=== PATIENT | female | born 1955 | race Caucasian/White ===

== ENCOUNTER 2018-04-08 15:59 | Inpatient (IN) | payer SELFPAY ==
[2018-04-08] VITALS (9 sets, daily range): BP systolic 154–190; BP diastolic 55–80; PULSE 78–100; RESP 14–20; TEMP 36.9–37.4; O2SAT 91–96; BMI 28.3
--- NOTE | 2018-04-08 16:10 | ED.DCSUM_ITS ---
- ER Visit Summary Date of Service: 04/08/18 Chief Complaint: Abdominal pain History of Present Illness: The patient is a 62 F presents to the emergency department with increasing abdominal pain. Patient states that over the past 24 hours, she has had increasing abdominal fullness, nausea, vomiting, abdominal pain. Patient states she has never had symptoms like this before. She states she cannot keep anything down. She states she has been vomiting more than 10 times. She denies any blood in the emesis. Her last bowel movement was >24 hours ago. Patient's only surgical history is ex lap for partial bowel removal when she was because it was . She has had no other abdominal surgery. She denies fevers or chills. She is a non-insulin- dependent diabetic. Physical Examination: Vital signs reviewed General: Well-nourished, well-developed Head: Normocephalic, atraumatic Eyes: Pupils equal and reactive, extraocular muscles intact Neck, supple, no lymphadenopathy Heart: Regular rate and rhythm Respiratory: No distress, clear bilaterally Abdomen: Soft, distended, tender in the periumbilical and epigastric area without rebound, no peritoneal signs Back: Nontender Extremities: Nontender, no edema, no cords Skin: Normal color no rash Neuro: Alert and oriented, no focal or lateralizing deficits Test Results: [] Emergency Department Course and Treatment: The patient's symptoms that are concerning for acute bowel obstruction. Her only prior surgery is ex lap for some sort of bowel issue 30 years ago. IV was established. The patient does have marked leukocytosis. She was given morphine and Zofran and had total resolution of her symptoms. Patient's lactate is mildly elevated but I do feel that more likely secondary to dehydration and sepsis. Patient underwent CT of the abdomen and pelvis which shows symptoms that are concerning for a closed loop obstruction in the right lower quadrant. NG was placed. I discussed the patient with Dr. Rivero who is currently evaluating the patient. The patient will be admitted for treatment of small bowel obstruction. Treatment Plan: [] Disposition: Admission Impression: 1. Small bowel obstruction This note was generated with [employer] dictation software. It may contain incorrect words, spelling, and punctuation that were not noted in review of the chart prior to signing ED Disposition - Plan for ED Patient: Chief Complaint: Abd Pain Referrals: Kaleb Ferraro [Primary Care Provider] -
[2018-04-08] MEDS: Morphine 4 MG/ML Syringe IV (16:37)
[2018-04-08] MEDS: Ondansetron 4 MG/2 ML Vial IV (16:37)
[2018-04-08] MEDS: 0.9% Normal Saline 1,000 ML 1000 ML IV (16:37)
[2018-04-08 16:54] LABS: Absolute Lymphocyte Count 2.18 X10^3/ul (0.83-4.51); Absolute Neutrophil Count 15.1 X10^3/uL (2.0-7.7); Basophil# 0.01 X10^3/uL; Basophil% 0.1 % (0-1); Eosinophil# 0.01 X10^3/uL; Eosinophils% 0.1 % (0-5); Hemoglobin 16.6 g/dl (12.0-15.0); Lymphocyte # 2.18 X10^3/ul (4.0); Mean Corp Hgb Conc 35.3 g/gl (32-36); Mean Corpuscular Hgb 32.5 pg (27.0-32.0); Mean Corpuscular Volume 92.2 fL (81-99); Mean Platelet Vol. 10.3 fl (6.2-12.0); Monocyte# 0.86 X10^3/uL; Monocyte% 4.7 % (0-10); Neutrophil # 15.05 X10^3/uL (2.7-7.7); Neutrophil % 82.9 % (47-70); Platelet Count 216 K/mm3 (150-450); RBC Distribution Width CV 12.8 % (11.6-14.6); RBC Distribution Width SD 42.7 fl (35.1-43.9); White Blood Count 18.1 K/mm3 (4.4-11.0)
[2018-04-08 17:09] LABS: Bacteria 0 SEEN /hpf (None Seen); Mucous, Urine 0 SEEN /hpf (<or=2+); Red Blood Cells-Urine 0 SEEN /hpf (0-5); White Blood Cells 0 SEEN /hpf (0-5)
[2018-04-08 17:10] LABS: Color, Urine Yellow (Yellow); Glucose, Dipstick Normal (Normal); Ketone-Dipstick 50 mg/dl (Negative); Leukocyte Esterase-Dipstick Negative /ul (Negative); Nitrite-Dipstick Negative (Negative); Occult Blood-Urine 25 /ul (Negative); Protein-Dipstick 100 mg/dl (Negative); Specific Gravity, Urine 1.015 (1.002-1.030); Urine Bilirubin Dipstick Negative (Negative); Urine Clarity Clear (Clear); Urine Urobilinogen Normal (Normal); Urine pH 6.5 (5.0 - 8.0)
[2018-04-08 17:11] LABS: POSITIVE COUNT NO; POSITIVE DIFFERENTIAL NO; POSITIVE MORPHOLOGY NO
[2018-04-08 17:16] LABS: ALB/GLOB Ratio 1.1 RATIO (0.9-2.4); AST(SGOT) 23 U/L (15-37); Alanine Aminotransfer ALT/SGPT 40 U/L (13-56); Albumin, Serum 4.1 g/dL (3.2-5.0); Alkaline Phosphatase 67 U/L (45-117); Anion Gap 12 (5-15); BUN 13 mg/dL (7-18); BUN/Creat Ratio 15.5 RATIO (10-20); Calcium,Total 9.2 mg/dL (8.5-10.1); Chloride 100 mmol/L (98-107); Creatinine, Serum 0.84 mg/dL (0.55-1.02); EST Glomerular Filtration Rate 73 mL/min (>60); Est Glom Filt Rate - Afr Amer 89 mL/min (>60); Estimated Creatinine Clearance 63.29 ml/min; Globulin 3.9 g/dL (2.2-4.2); Glucose 152 mg/dL (74-106); Lipase 168 U/L (73-393); Potassium 3.1 mmol/L (3.5-5.1); Sodium Level 137 mmol/L (136-145)
[2018-04-08 17:25] LABS: Squamous Epithelial Cells - UA 0-5 SEEN /hpf (5-10)
[2018-04-08 17:34] LABS: Lactic Acid 2.5 mmol/L (0.4-2.0)
[2018-04-08] MEDS: 0.9% Normal Saline 1,000 ML 999 ML IV ×2 (18:05→20:21)
--- NOTE | 2018-04-08 20:31 | PCM.HP.BLA ---
History and Physical Date of Admission: 04/08/18 Chief Complaint: abdominal pain History of Present Illness: 62 y/o WF presents with abdominal pain, nausea and vomiting. Developed since yesterday evening. Last bowel movement was yesterday morning. Last passed flatus was yesterday morning. Has chronic constipation. Complaint of abdominal bloating and distention. WBC - 18.1K with left shift differential, serum potassium 3.1 CT scan - closed loop bowel obstruction Past Medical History: Abnormal glandular Papanicolaou smear of cervix ?Abn. Pap smear (cervix), most recent in 2016 was normal Diabetes (HCC) ? HTN (hypertension) Past Surgical History: APPENDECTOMY ? ? INTESTINE SURGERY PROCEDURE 1985 had bowel rupture- a foot of intestine was removed LIGATE FALLOPIAN TUBE Tubal ligation LUMPECTOMY/RADIOTHERAPY DIAG MAMM/A10 Right Medications: metoprolol tartrate, short acting, (LOPRESSOR) 25 mg tablet Take 1 tablet by mouth twice daily. chlorthalidone (HYGROTON) 25 mg tablet Take 1 tablet by mouth once daily. potassium chloride (K-TAB) 10 mEq tablet Take 2 tablets by mouth daily with breakfast. metFORMIN (GLUCOPHAGE) 500 mg tablet Take 1 tablet by mouth daily with breakfast. . ibuprofen (MOTRIN) 800 mg tablet Take 1 tablet by mouth every 8 hours as needed. Take with food. cyclobenzaprine (FLEXERIL) 10 mg tablet Take 1 tablet by mouth three times daily as needed for Muscle Spasm. acetaminophen 650 mg CR tablet Take 650 mg by mouth every 8 hours as needed for Pain. Allergies: Darvon [Propoxyphen* ? Sulfa (Sulfonamide Social history: TOB use 1 ppd for 40 Marital status - Review of Systems: General - denies fevers Cardiovascular denies chest pain, denies history of heart attack Pulmonary denies shortness of breath, denies coughing up blood Gastrointestinal as per HPI, denies blood in stools Neurological denies seizures Genitourinary denies blood in urine Hematological denies spontaneous/prolonged bleeding Skin denies open non healing wounds Musculoskeletal Endocrine has diabetes Psychological denies hallucinations Physical examination: Vital signs Temp 98.5F HR 96 BP 154/75 RR 18 Ht: 5' 5 Wt: 174# General WD/WN WF in no apparent distress, alert and oriented, not septic appearing HEENT Normocephalic. EOM intact with sclera clear and no icterus noted. Neck is supple with no jugular venous distention noted. Trachea is midline. Lungs clear to auscultation. normal breath sounds in all lung hill. No rales/rhonchi/wheezing noted. No labored breathing noted, such as retractions. Heart normal S1 and S2 auscultated. No rubs/clicks/murmurs noted. Abdomen soft but with diffuse tenderness and distended and tympanitic, no bowel sounds Extremities no pitting edema noted. Genitourinary/Rectal deferred Skin normal skin integrity. Neurological non focal. Psychological normal affect, patient is calm and appropriate Impression: small bowel obstruction elevated lactic acid leukocytosis DIscussion/Plan: I have discussed the above with the patient and her who is present with her. I have offered the patient the procedure of exploratory laparotomy, lysis of adhesions, possible small bowel obstruction. I have explained the procedure to the patient. I have counseled the patient as to the risks of the procedure, including but not limited to: infection, bleeding, injury to any blood vessels/nerves, scar tissue, injury to any intrabdominal organs, injury to kidney/ureters, injury to bowel/bladder, intraabdominal abscess/bleeding, hernias at incisional sites, wound infections, complications of anesthesia, postoperative pneumonia/cardiac problems/blood clots etc. the patient understands. She wishes to proceed. I have answered all questions to the patients satisfaction and the patient has no further questions.
[2018-04-08 20:49] LABS: Reflex Lactate? Y
[2018-04-08] MEDS: Bupiv/Epi 0.5% Mpf 30 ML Vial (21:27)
[2018-04-08 22:14] LABS: Lactic Acid 2.3 mmol/L (0.4-2.0)
--- NOTE | 2018-04-08 22:14 | ED.RN ---
lab called with critical lab results. lactic acid 2.3. OR called and spoke with OR charge nurse. Results to be relayed to Dr. Rivero at this time
--- NOTE | 2018-04-08 23:02 | PCM.IMDPSTOP ---
Immediate Post-Op Note Date of Procedure: 04/08/18 Primary Surgeon/Physician: Karen Rivero research animal attendant: NOT,DEFINED Pre-Operative Diagnosis: small bowel obstruction Post-Operative Diagnosis: same, due to adhesions Surgery/Procedure Performed:: exploratory laparotomy, lysis of adhesions Description of Surgical Findings:: adhesions of the small bowel to omentum and pelvic sidewall, closed loop obstruction in right lower quadrant, no gangrenous bowel noted Estimated Blood Loss: 20 ml Specimen's removed: none Type of Anesthesia:: General ASA Class: ASA2 Plus Emergency - Admit VTE Documentation VTE Present on Admission: Yes VTE Mechan Device Prophylaxis: SCD's
--- NOTE | 2018-04-08 23:04 | PCM.OPRPT ---
Report of Operation Date of Procedure: 04/08/18 Pre-Operative Diagnosis: small bowel obstruction Post-Operative Diagnosis: same, due to adhesions Surgery/Procedure Performed:: exploratory laparotomy, lysis of adhesions Description of Surgical Findings:: adhesions of the small bowel to omentum and pelvic sidewall, closed loop obstruction in right lower quadrant of small bowel, no gangrenous bowel noted seismograph computer: NOT,DEFINED Type of Anesthesia:: General Anesthesiologist: Antonio Teran Specimen's removed: none Estimated Blood Loss (mL): 20 ml Fluids Replaced: 800 ml RL Description of Procedure: After informed consent was obtained, the patient was brought to the Operating Room. Appropriate time out protocol was followed. She was then placed in the supine position. The patient was then placed under anesthesia. The abdomen was then prepped with a sterile surgical skin preparation. Sterile surgical drapes were placed. This skin and subcutaneous tissues were then widely infiltrated with the local anesthetic. A skin incision was then made with a 10 blade scalpel of the lower midline, extending to slightly superior to the umbilicus. Any hemorrhage was adequately controlled with electrocautery. The fascia was identified. A small incision was made and then the peritoneal cavity was digitally entered. There were omental adhesions to the anterior fascia and these were taken down by blunt finger dissection. The fascial incision was extended carefully avoiding any injury to any intraabdominal contents. There was peritoneal fluid present - not cloudy. There were adhesions of the small bowel to the omentum. These were taken down by sharp dissection. Any hemorrhage was controlled with electrocoagulation. Once freed in its entirety, the omentum was then retracted aside. There were adhesions of the small bowel. In the right lower quadrant of the abdomen, there was dark colored small bowel. This was a loop of bowel that was twisted. The neck of the loop had a dense adhesion causing the obstruction. This was lysed. The bowel immediately pinked up and no gangrene of the bowel was noted. The small bowel was then examined in its entirety to rule out any further injury. The small bowel was examined from the ligament of Trietz to the ileocecal valve. The loop of bowel that was involved in the obstruction was examined prior to closure - it appeared viable and there was good peristalsis noted. The intraabdominal cavity was then vigorously irrigated with warmed normal saline. All irrigation fluid was aspirated out. Sponge and instrument count were correct. The fascia was then reapproximated along the midline vertically with a running #1 looped PDS suture. The wound was vigorously irrigated. The skin was reapproximated with skin bryce. A dressing was applied. The patient was brought from to the Recovery Room in stable condition. - Complications none noted - Admit VTE Documentation VTE Present on Admission: Yes VTE Mechan Device Prophylaxis: SCD's
[2018-04-08 23:26] LABS: Bedside Glucose 152 mg/dL (70-110)
[2018-04-09] VITALS (12 sets, daily range): BP systolic 122–165; BP diastolic 55–74; PULSE 74–84; RESP 16–20; TEMP 36.7–37.3; O2SAT 86–95; BMI 28.3; BMI 29.1
[2018-04-09] MEDS: 0.9% Normal Saline 1,000 ML 100 ML IV ×3 (00:39→19:16)
--- NOTE | 2018-04-09 02:17 | PCM.CONS.GEN ---
Problem List (1) Hypertension Status: Chronic (2) Diabetes mellitus type 2 in obese Status: Chronic (3) SBO (small bowel obstruction) Status: Acute Reason for Consult Date of Consultation: 04/09/18 Reason for Consultation: Management of medical comorbidities History of Present Illness: The patient is a 62 year old F with history of hypertension and diabetes mellitus was admitted yesterday evening for small bowel obstruction. Patient has a history of about 2 days for abdominal pain with nausea, vomiting. She did not had bowel movement or flatus for 1 day. On further assessment in ED, she was found leukocytosis with left shift, 18,000, lactic acidosis 2.5. CT abdomen was done which reported dilated loops of small bowel consistent with small bowel obstruction, and pattern of internal hernia. Patient has history of colonic rupture about 30 years ago and had 1 foot of colon removed. Patient just returned to floor from operative room after she had exploratory laparotomy, adhesiolysis of small bowel to omentum and pelvic sidewall. No gangrenous bowel was noted. Currently, patient complained of pain abdomen about 2/10 intensity. [] Past Medical History Past Medical History (Chronic Problems): Chronic Problems Hypertension (Chronic) Diabetes mellitus type 2 in obese (Chronic) Allergies propoxyphene [From Darvon] Allergy (Verified 04/08/18 16:01) Unknown Home Medications: Ambulatory Orders Medication Instructions Recorded Hydrochlorothiazide 12.5 mg PO DAILY 04/08/18 Metoprolol Tartrate 25 mg PO BID 04/08/18 Potassium Chloride [K-Tab ER] 40 meq PO DAILY 04/08/18 Metformin HCl 500 mg PO DAILY 04/09/18 Smoking Status: Current every day smoker Tobacco Use: Cigarettes - *Family History Paternal History Items: No pertinent history Review of Systems Constitutional: Denies: Chills, Fever, Weight Change HEENT: Denies: Head Aches, Sinus Congestion, Sinus Drainage Cardiovascular: Denies: Chest Pain, Palpitations Respiratory: Denies: Cough, Shortness of breath at rest, Sputum production Gastrointestinal: Reports: Abdominal Pain, Constipation, Nausea, Vomiting Genitourinary: Denies: Dysuria Musculoskeletal: Denies: Joint Pain, Joint Tenderness Skin: Denies: Rash, Wounds Neurological: Denies: Numbness, Tingling, Focal weakness Psychiatric: Denies: Anxiety, Depression, Homicidal Ideations, Suicidal Ideations Hematologic/ Lymphatic: Denies: Easy Bruising, Easy Bleeding Patient Problems: Active and Suspected Problems SBO (small bowel obstruction) (Acute) - Physical Exam General: Alert, Oriented x3, Cooperative HEENT: Atraumatic, PERRLA, EOMI, Normocephalic Neck: Supple, No JVD, Negative Carotid Bruits Lungs: Clear to auscultation, No rhonchi, No wheeze, Diminished Cardiovascular: Regular rate, Regular Rhythm, Normal S1, No murmurs Abdomen: Soft, Bowel Sounds Not Present, Tender Extremities: No edema, Capillary Refill Less than 3 Seconds Skin: No rashes, No breakdown Musculoskeletal: No Tenderness to Palpation of Joints or Extremities, Arthritic Changes Neurological: Cranial nerves II-XII grossly intact Psych/Mental Status: Normal Affect, Appropriate Vital Signs Temp Pulse Resp BP Pulse Ox 98.6 F 78 16 141/56 H 93 04/09/18 02:02 04/09/18 02:02 04/09/18 02:02 04/09/18 02:02 04/09/18 02:02 Oxygen Flow Rate (L/min) 2.5 Oxygen Delivery Method Nasal Cannula Weight: 175 lb 4.28 oz Body Mass Index (BMI) 29.1 Finger Stick Blood Glucose 152 Intake and Output for Last 24 Hours 04/07/18 04/08/18 04/09/18 23:59 23:59 23:59 Output Total 170 / 170 Balance -170 / -170 POC Glucose 04/08/18 23:24 POC Glucose 152 H Assessment/Plan All Active Problems SBO (small bowel obstruction) (Acute) The patient is a 62 year old F with history of hypertension and diabetes mellitus was admitted yesterday evening for small bowel obstruction. Patient has a history of about 2 days for abdominal pain with nausea, vomiting. She did not had bowel movement or flatus for 1 day. On further assessment in ED, she was found leukocytosis with left shift, 18,000, lactic acidosis 2.5. CT abdomen was done which reported dilated loops of small bowel consistent with small bowel obstruction, and pattern of internal hernia. Patient has history of colonic rupture about 30 years ago and had 1 foot of colon removed. Patient just returned to floor from operative room after she had exploratory laparotomy, adhesiolysis of small bowel to omentum and pelvic sidewall. No gangrenous bowel was noted. Currently, patient complained of pain abdomen about 2/10 intensity. 1. Small bowel obstruction secondary to internal hernia with adhesions status post adhesiolysis: Currently, on IV fluid normal saline with KCl. Pain control. Rest as per Dr. Rivero. 2. Hypertension: Blood pressure was elevated in ED and in OR, max 183/80. Currently 165/58. Hold diuretics. On IV enalapril as needed for systolic blood pressure more than 160. When patient is allowed oral, resume her home medications including HCTZ and metoprolol. 3. Diabetes mellitus type 2: Blood sugar is 152. Accu-Chek before meals and at bedtime and cover with NovoLog sliding scale. A1c tomorrow a.m. 4. Mild hypokalemia: Potassium is getting replaced. Monitor electrolytes daily. DVT prophylaxis, moderate risk: Lovenox 40 mg subcu daily suggested after 18-24 hours but will leave the decision on Dr. Rivero depending upon the risk of perioperative bleed. B/L SCD [] Clinical Impression(s) from Imaging Studies Abdomen/Pelvis CT 04/08/18 16:06 IMPRESSION: Dilated loops of small bowel in the right lower quadrant which is consistent with a small bowel obstruction. Findings suggesting a closed-loop obstruction which is likely secondary to an internal hernia. Small amount of ascites. No free air. No fluid collection. N.B. : The above information has been verbally conveyed by Rai Sawant to Dr. Zbigniew Power, Referring Physician, on 04/08/2018 19:37:58 (ET). Electronically Signed: Rai Sawant, at 19:03 EDT Tel , Service support , KUB X-Ray 04/08/18 20:05 IMPRESSION: Enteric tube tip in the stomach. However, the side-port is at the GE junction. This could be advanced 5-10 cm for improved positioning. Code Visit Inpatient E&M: 03029 Init Hosp L2
[2018-04-09 06:16] LABS: Bedside Glucose 136 mg/dL (70-110)
[2018-04-09 07:25] LABS: Absolute Neutrophil Count 10.9 X10^3/uL (2.0-7.7); Basophil# 0.01 X10^3/uL; Basophil% 0.1 % (0-1); Eosinophil# 0.01 X10^3/uL; Eosinophils% 0.1 % (0-5); Hematocrit 41.5 % (37-47); Hemoglobin 14.3 g/dl (12.0-15.0); Mean Corp Hgb Conc 34.5 g/gl (32-36); Mean Corpuscular Hgb 32.6 pg (27.0-32.0); Mean Corpuscular Volume 94.7 fL (81-99); Mean Platelet Vol. 10.5 fl (6.2-12.0); Monocyte# 1.51 X10^3/uL; Monocyte% 10.3 % (0-10); Neutrophil # 10.87 X10^3/uL (2.7-7.7); Neutrophil % 74.2 % (47-70); Platelet Count 202 K/mm3 (150-450); RBC Distribution Width SD 43.8 fl (35.1-43.9); Red Blood Count 4.38 M/mm3 (4.2-5.4); White Blood Count 14.7 K/mm3 (4.4-11.0)
[2018-04-09 07:27] LABS: Differential Indicated SCAN CRITERIA MET; POSITIVE COUNT NO; POSITIVE DIFFERENTIAL YES; POSITIVE MORPHOLOGY NO
[2018-04-09 07:39] LABS: Anion Gap 9 (5-15); BUN 10 mg/dL (7-18); BUN/Creat Ratio 14.8 RATIO (10-20); Calcium,Total 7.7 mg/dL (8.5-10.1); Chloride 109 mmol/L (98-107); Creatinine, Serum 0.67 mg/dL (0.55-1.02); EST Glomerular Filtration Rate 94 mL/min (>60); Est Glom Filt Rate - Afr Amer 114 mL/min (>60); Estimated Creatinine Clearance 79.34 ml/min; Glucose 122 mg/dL (74-106); Potassium 3.3 mmol/L (3.5-5.1); Sodium Level 143 mmol/L (136-145)
--- NOTE | 2018-04-09 07:45 | PN_ITS ---
Patient Problems: Active and Suspected Problems SBO (small bowel obstruction) (Acute) Subjective: Patient was seen and examined. Complains of abdominal pain. Not yet moved her bowels. Noted to be hypoxic overnight; maintained on intranasal canula oxygen, 2.5L Denies fever or chills, SOB. Vitals/I&O's: Vital Signs Temp Pulse Resp BP Pulse Ox 98.1 F 78 20 H 122/55 H 93 04/09/18 04:33 04/09/18 04:33 04/09/18 04:33 04/09/18 04:33 04/09/18 04:33 Oxygen Flow Rate (L/min) 2.5 Oxygen Delivery Method Nasal Cannula Weight: 79.5 kg Body Mass Index (BMI) 29.1 Finger Stick Blood Glucose 152 Intake and Output for Last 24 Hours 04/07/18 04/08/18 04/09/18 23:59 23:59 23:59 Intake Total 834 / 834 Output Total 170 / 170 575 / 575 Balance -170 / -170 259 / 259 General: Alert, Oriented x3, Cooperative, No apparent distress, - - on 2.5 L intranasal oxygen HEENT: Atraumatic, PERRLA, EOMI, Normocephalic Oral: Moist Mucosa Neck: Supple Lungs: Clear to auscultation, Normal air movement Cardiovascular: Regular rate, Regular Rhythm, Normal S1, Normal S2, No murmurs Abdomen: Soft, Non-Distended, No Hepato-splenomegaly, Bowel Sounds Not Present, Tender, - - Midline incisional dressing, clean, dry, intact Extremities: No edema Skin: No rashes, No breakdown Musculoskeletal: No Tenderness to Palpation of Joints or Extremities Lymphatic: No Cervical, Supraclavicular, or Inguinal Adenopathy Neurological: Cranial nerves II-XII grossly intact, Neuro grossly intact Psych/Mental Status: Normal Affect, Appropriate Laboratory Results 04/08/18 23:24: POC Glucose 152 H 04/09/18 06:06: POC Glucose 136 H 04/09/18 06:20: WBC 14.7 H, RBC 4.38, Hgb 14.3, Hct 41.5, MCV 94.7, MCH 32.6 H, MCHC 34.5, RDW 13.0, RDW Differential 43.8, Plt Count 202, MPV 10.5, Immature Gran % (Auto) 0.300, Neut % (Auto) 74.2 H, Lymph % (Auto) 15.0 L, [place] % (Auto) 10.3 H, Eos % (Auto) 0.1, Baso % (Auto) 0.1, Absolute Neuts (auto) 10.9 H, Absolute Lymphs (auto) 2.20, Total Counted Pending 04/09/18 06:20: Sodium 143, Potassium 3.3 L, Chloride 109 H, Carbon Dioxide 25.0 , Anion Gap 9, BUN 10, Creatinine 0.67, Estim Creat Clear Calc 79.34, Est GFR ( MDRD) Af Amer 114, Est GFR (MDRD) Non-Af 94, BUN/Creatinine Ratio 14.8, Glucose 122 H, Calcium 7.7 L, Magnesium 2.0 04/09/18 06:20: Hemoglobin A1c Pending Current Medications Dextrose (D50w Syringe) 0 gm IV X1 PRN; Protocol PRN Reason: Hypoglycemia Enalaprilat (Vasotec) 1.25 mg IV Q6H PRN PRN PRN Reason: SBP>160 mmhg Glucagon () 1 mg IM .X1 PRN PRN Reason: Hypoglycemia Hydrochlorothiazide (Hydrochlorothiazide) 12.5 mg PO DAILY JASON Sodium Chloride () 1,000 mls @ 100 mls/hr IV .Q10H JASON Last Admin: 04/09/18 00:39 Dose: 100 mls/hr Sodium Chloride () 250 mls @ 15 mls/hr IV .[id number] PRN PRN Reason: SALINE FLUSH Insulin Human Lispro (Humalog Kwikpen (Bkc)) 0 unit SQ Q6 JASON PRN Reason: Protocol Last Admin: 04/09/18 06:11 Dose: Not Given Metformin HCl (Glucophage) 500 mg PO DAILYCM [facility] Last Admin: 04/09/18 07:33 Dose: Not Given Metoprolol Tartrate (Lopressor (Beta Melany)) 25 mg PO BID [facility] Morphine Sulfate () 4 mg IV Q1H PRN PRN PRN Reason: SEVERE PAIN (6-10/10) Ondansetron HCl (Zofran) 4 mg IV Q8H PRN PRN PRN Reason: NAUSEA/VOMITING Potassium Chloride (K-Dur) 40 meq PO DAILYCM [facility] Sodium Chloride () 5 - 30 ml IV UD PRN PRN Reason: SALINE FLUSH Medical Necessity - Tobacco Use Smoking Status: Current every day smoker Tobacco Use: Cigarettes Assessment/Plan All Active Problems SBO (small bowel obstruction) (Acute) 62 year old F with past medical history of hypertension and diabetes mellitus admitted with abdominal pain, nausea, vomiting ongoing for 2 days and found to have small bowel obstruction. CT abdomen reported dilated loops of small bowel consistent with closed-loop small bowel obstruction/ internal hernia. 1. Postop day #1, s/p exploratory laparotomy, adhesiolysis; patient presented with acute small bowel obstruction secondary to internal hernia, secondary to adhesions, History of colonic rupture status post colectomy now status post adhesiolysis, kept n.p.o. by general surgery, on IV fluids, further recommendations by general surgery 2. Postop ileus complicated by electrolyte imbalances, potassium was 3.3, patient is n.p.o., would replace IV, will check magnesium, encourage ambulation - PT/OT evaluations and treatment. 3. Hypertension, fairly controlled, home hydrochlorothiazide and metoprolol on hold, on IV enalapril as needed, Will resume home regimen if patient is improved and able to take oral medications 4. Diabetes mellitus type 2. HgbA1c 5.9, blood sugars are fairly controlled, was on metformin, metformin on hold, continue with Accu-Cheks with insulin sliding scale 5. Hypokalemia, will replace, will also check serum magnesium level, labs in am. 6. Leukocytosis, likely reactive, improving, not on antibiotics, will continue to monitor 7. DVT prophylaxis - Lovenox 40 mg subcu daily Code Visit Inpatient E&M: 63601 [facility] Hosp L2
[2018-04-09 07:51] LABS: Hemoglobin A1c 5.9 % (4.2-6.3)
[2018-04-09 08:03] LABS: Platelet Estimate ADEQUATE (ADEQ); Red Cell Morphology NORM C+C NORMAL (NORM C&C)
[2018-04-09] MEDS: Metoprolol Tartrate 25 MG Tablet PO ×2 (10:21→21:59)
[2018-04-09] MEDS: Morphine 4 MG/ML Syringe IV ×2 (10:35→21:15)
--- NOTE | 2018-04-09 10:40 | CASEMGMT ---
Social Work Note Face to face with pt for SP status. Pt is accompanied by spouse and grandchild. Introduced self and role at [facility]. 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 Spouse is self-employed and they report to not have insurance. Stating that they cannot afford it. Inquire if they have applied for Medicaid and they deny that they have. Educate to Medicaid and provide with application. Understanding expressed. Educated to other resources such as [facility] and they declines further needs. Made aware that SW is available if other needs arise. Plan: Home Amparo Nunn, SOCIAL SERVICES TECHNICIAN, BUFFING AND SUEDING MACHINE OPERATOR
--- NOTE | 2018-04-09 11:05 | PCM.PN.SRG ---
Patient Problems: Active and Suspected Problems SBO (small bowel obstruction) (Acute) Subjective: Patient feeling well, has not passed flatus, ambulated within room - Physical Exam General: Alert, Oriented x3 Oral: Moist Mucosa Neck: Supple Abdomen: Soft, - - dressing was changed, it was saturated - small half dollared sized seepage noted on new dressing Vital Signs Temp Pulse Resp BP Pulse Ox 98.6 F 75 16 125/55 H 95 04/09/18 08:10 04/09/18 10:21 04/09/18 08:10 04/09/18 08:10 04/09/18 08:10 Oxygen Flow Rate (L/min) 2 Oxygen Delivery Method Nasal Cannula Weight: 79.5 kg Body Mass Index (BMI) 29.1 Finger Stick Blood Glucose 152 Intake and Output for Last 24 Hours 04/07/18 04/08/18 04/09/18 23:59 23:59 23:59 Intake Total 834 / 834 Output Total 170 / 170 575 / 575 Balance -170 / -170 259 / 259 Laboratory Tests Past 24 Hrs 04/09/18 04/09/18 04/09/18 06:20 06:20 06:20 WBC 14.7 H RBC 4.38 Hgb 14.3 Hct 41.5 MCV 94.7 MCH 32.6 H MCHC 34.5 RDW 13.0 RDW Differential 43.8 Plt Count 202 MPV 10.5 Immature Gran % (Auto) 0.300 Neut % (Auto) 74.2 H Lymph % (Auto) 15.0 L [place] % (Auto) 10.3 H Eos % (Auto) 0.1 Baso % (Auto) 0.1 Absolute Neuts (auto) 10.9 H Absolute Lymphs (auto) 2.20 Total Counted Not Reportable Differential Comment Diff Path Review May foll Platelet Estimate ADEQUATE RBC Morphology NORM C+C Sodium 143 Potassium 3.3 L Chloride 109 H Carbon Dioxide 25.0 Anion Gap 9 BUN 10 Creatinine 0.67 Estim Creat Clear Calc 79.34 Est GFR (MDRD) Af Amer 114 Est GFR (MDRD) Non-Af 94 BUN/Creatinine Ratio 14.8 Glucose 122 H Hemoglobin A1c 5.9 Calcium 7.7 L Magnesium 2.0 POC Glucose 04/09/18 04/08/18 06:06 23:24 POC Glucose 136 H 152 H Medical Necessity - Tobacco Use Smoking Status: Current every day smoker Tobacco Use: Cigarettes Assessment/Plan All Active Problems SBO (small bowel obstruction) (Acute) Impression: POD#1 s/p exploratory laparotomy, lysis of adhesions Plan: encourage ambulation in the hallways incentive spirometry NPO until passes flatus appreciate hospitalist service medical management
[2018-04-09 12:25] LABS: Bedside Glucose 129 mg/dL (70-110)
[2018-04-09 13:27] LABS: Anion Gap 7 (5-15); BUN 11 mg/dL (7-18); BUN/Creat Ratio 16.9 RATIO (10-20); Calcium,Total 7.9 mg/dL (8.5-10.1); Chloride 107 mmol/L (98-107); Creatinine, Serum 0.65 mg/dL (0.55-1.02); EST Glomerular Filtration Rate 98 mL/min (>60); Est Glom Filt Rate - Afr Amer 119 mL/min (>60); Estimated Creatinine Clearance 81.79 ml/min; Glucose 112 mg/dL (74-106); Potassium 4.1 mmol/L (3.5-5.1); Sodium Level 140 mmol/L (136-145)
[2018-04-09 17:36] LABS: Bedside Glucose 129 mg/dL (70-110)
[2018-04-09] MEDS: 0.9% NaCl Peripheral Flush Adult/Peds IV (21:15)
[2018-04-09 23:26] LABS: Bedside Glucose 103 mg/dL (70-110)
[2018-04-10] VITALS (15 sets, daily range): BP systolic 131–161; BP diastolic 56–68; PULSE 66–84; RESP 16–20; TEMP 36.8–37; O2SAT 87–95
[2018-04-10] MEDS: Morphine 4 MG/ML Syringe IV (03:50)
[2018-04-10] MEDS: 0.9% NaCl Peripheral Flush Adult/Peds IV (03:51)
[2018-04-10] MEDS: 0.9% Normal Saline 1,000 ML 100 ML IV (05:04)
[2018-04-10 06:16] LABS: Bedside Glucose 94 mg/dL (70-110)
[2018-04-10 06:25] LABS: Absolute Lymphocyte Count 1.54 X10^3/ul (0.83-4.51); Absolute Neutrophil Count 5.3 X10^3/uL (2.0-7.7); Basophil# 0.02 X10^3/uL; Basophil% 0.3 % (0-1); Eosinophil# 0.07 X10^3/uL; Eosinophils% 0.9 % (0-5); Hematocrit 40.5 % (37-47); Hemoglobin 13.3 g/dl (12.0-15.0); Lymphocyte # 1.54 X10^3/ul (4.0); Lymphocyte % 19.6 % (19-41); Mean Corp Hgb Conc 32.8 g/gl (32-36); Mean Corpuscular Hgb 31.9 pg (27.0-32.0); Mean Corpuscular Volume 97.1 fL (81-99); Mean Platelet Vol. 10.4 fl (6.2-12.0); Monocyte# 0.92 X10^3/uL; Monocyte% 11.7 % (0-10); Neutrophil # 5.27 X10^3/uL (2.7-7.7); Neutrophil % 67.2 % (47-70); Platelet Count 162 K/mm3 (150-450); RBC Distribution Width CV 13.2 % (11.6-14.6); RBC Distribution Width SD 45.7 fl (35.1-43.9); Red Blood Count 4.17 M/mm3 (4.2-5.4); White Blood Count 7.8 K/mm3 (4.4-11.0)
[2018-04-10 06:27] LABS: POSITIVE COUNT NO; POSITIVE DIFFERENTIAL NO; POSITIVE MORPHOLOGY NO
[2018-04-10 06:39] LABS: Anion Gap 11 (5-15); BUN 12 mg/dL (7-18); Chloride 107 mmol/L (98-107); Creatinine, Serum 0.46 mg/dL (0.55-1.02); EST Glomerular Filtration Rate 146 mL/min (>60); Est Glom Filt Rate - Afr Amer 176 mL/min (>60); Estimated Creatinine Clearance 115.57 ml/min; Glucose 109 mg/dL (74-106); Potassium 3.5 mmol/L (3.5-5.1); Sodium Level 143 mmol/L (136-145)
[2018-04-10] MEDS: Metoprolol Tartrate 25 MG Tablet PO ×2 (08:14→21:16)
--- NOTE | 2018-04-10 09:36 | PCM.PN.HOSP ---
Patient Problems: Active and Suspected Problems SBO (small bowel obstruction) (Acute) Objective: Physical exam: General: Alert, Oriented x3, Cooperative, No apparent distress, - - on 2.5 L intranasal oxygen HEENT: Atraumatic, PERRLA, EOMI, Normocephalic Oral: Moist Mucosa Neck: Supple Lungs: Diminished at the lung bases, few coarse crackle heard Cardiovascular: Regular rate, Regular Rhythm, Normal S1, Normal S2, No murmurs Abdomen: Soft, Non-Distended, No Hepato-splenomegaly, Bowel SoundsPresent, Tender, - - Midline incisional dressing, clean, dry, intact Extremities: No edema Skin: No rashes, No breakdown Musculoskeletal: No Tenderness to Palpation of Joints or Extremities Lymphatic: No Cervical, Supraclavicular, or Inguinal Adenopathy Neurological: Cranial nerves II-XII grossly intact, Neuro grossly intact Psych/Mental Status: Normal Affect, Appropriate Vitals/I&O's: Vital Signs Temp Pulse Resp BP Pulse Ox 98.4 F 77 18 141/65 H 91 04/10/18 08:15 04/10/18 08:15 04/10/18 08:15 04/10/18 08:15 04/10/18 08:15 Oxygen Flow Rate (L/min) 3 Oxygen Delivery Method Nasal Cannula Weight: 79.5 kg Body Mass Index (BMI) 29.1 Finger Stick Blood Glucose 152 Intake and Output for Last 24 Hours 04/08/18 04/09/18 04/10/18 23:59 23:59 23:59 Intake Total 2389 / 2389 543 / 543 Output Total 170 / 170 1725 / 1725 400 / 400 Balance -170 / -170 664 / 664 143 / 143 Laboratory Results 04/09/18 06:20: Diff Path Review December04/09/18 12:17: POC Glucose 129 H 04/09/18 13:02: Sodium 140, Potassium 4.1, Chloride 107, Carbon Dioxide 26.0, Anion Gap 7, BUN 11, Creatinine 0.65, Estim Creat Clear Calc 81.79, Est GFR (MDRD) Af Amer 119, Est GFR (MDRD) Non-Af 98, BUN/Creatinine Ratio 16.9, Glucose 112 H, Calcium 7.9 L 04/09/18 17:28: POC Glucose 129 H 04/09/18 23:22: POC Glucose 103 08/26/18 05:35: WBC 7.8, RBC 4.17 L, Hgb 13.3, Hct 40.5, MCV 97.1, MCH 31.9, MCHC 32.8, RDW 13.2, RDW Differential 45.7 H, Plt Count 162, MPV 10.4, Immature Gran % (Auto) 0.300, Neut % (Auto) 67.2, Lymph % (Auto) 19.6, [place] % (Auto) 11.7 H, Eos % (Auto) 0.9, Baso % (Auto) 0.3, Absolute Neuts (auto) 5.3, Absolute Lymphs (auto) 1.54, Total Counted Not Reportable 04/10/18 05:35: Sodium 143, Potassium 3.5, Chloride 107, Carbon Dioxide 25.0, Anion Gap 11, BUN 12, Creatinine 0.46 L, Estim Creat Clear Calc 115.57, Est GFR (MDRD) Af Amer 176, Est GFR (MDRD) Non-Af 146, BUN/Creatinine Ratio 26.0 H, Glucose 109 H, Calcium 8.0 L 04/10/18 06:12: POC Glucose 94 Current Medications Albuterol/Ipratropium (Duoneb) 3 ml INHALATION Q4HWA.RT JASON Dextrose (D50w Syringe) 0 gm IV X1 PRN; Protocol PRN Reason: Hypoglycemia Enalaprilat (Vasotec) 1.25 mg IV Q6H PRN PRN PRN Reason: SBP>160 mmhg Glucagon () 1 mg IM .X1 PRN PRN Reason: Hypoglycemia Sodium Chloride () 250 mls @ 15 mls/hr IV .[id number] PRN PRN Reason: SALINE FLUSH Sodium Chloride () 1,000 mls @ 75 mls/hr IV .[id number] JASON Potassium Chloride (Kcl 10meq/100ml) 10 meq in 100 mls @ 100 mls/hr IV BOLUS Q1H [facility] Stop: 04/10/18 11:29 Insulin Human Lispro (Humalog Kwikpen (Bkc)) 0 unit SQ Q6 JASON PRN Reason: Protocol Last Admin: 04/10/18 06:14 Dose: Not Given Metoprolol Tartrate (Lopressor (Beta Melany)) 25 mg PO BID JASON Last Admin: 04/10/18 08:14 Dose: 25 mg Morphine Sulfate () 4 mg IV Q1H PRN PRN PRN Reason: SEVERE PAIN (6-10/10) Last Admin: 04/10/18 03:50 Dose: 4 mg Ondansetron HCl (Zofran) 4 mg IV Q8H PRN PRN PRN Reason: NAUSEA/VOMITING Sodium Chloride () 5 - 30 ml IV UD PRN PRN Reason: SALINE FLUSH Last Admin: 04/10/18 03:51 Dose: 10 ml Medical Necessity - Tobacco Use Smoking Status: Current every day smoker Tobacco Use: Cigarettes Assessment/Plan All Active Problems SBO (small bowel obstruction) (Acute) 62 year old F with past medical history of hypertension and diabetes mellitus admitted with abdominal pain, nausea, vomiting ongoing for 2 days and found to have small bowel obstruction. CT abdomen reported dilated loops of small bowel consistent with closed-loop small bowel obstruction/ internal hernia. 1. Postop day #2, s/p exploratory laparotomy, adhesiolysis; patient presented with acute small bowel obstruction secondary to internal hernia, secondary to adhesions, History of colonic rupture status post colectomy, still kept n.p.o. by general surgery, on IV fluids, further recommendations by general surgery 2. Postop ileus, improving, electrolyte imbalances resolved, K 3.5, will give another potassium 20mq IV x 1 to keep K close to 4 or above to help with ileus, BMP in am. 3. Hypertension, remains fairly controlled, home hydrochlorothiazide and metoprolol on hold, on IV enalapril as needed. Will resume home regimen if patient is improved and able to take oral medications. 4. Diabetes mellitus type 2. HgbA1c 5.9, blood sugars are fairly controlled, was on metformin, metformin on hold, continue with Accu-Cheks with insulin sliding scale 5. Hypokalemia, resolved, BMP in am 6. Leukocytosis, likely reactive, resolved 7. DVT prophylaxis - Lovenox 40 mg subcu daily Code Visit Inpatient E&M: 02276 Subs Hosp L2
[2018-04-10] MEDS: Ipratropium/Albuterol Sulfate 3 ML AMPUL.NEB INHALATION ×3 (11:28→19:17)
[2018-04-10 11:35] LABS: Bedside Glucose 108 mg/dL (70-110)
--- NOTE | 2018-04-10 12:28 | PCM.PN.SRG ---
Patient Problems: Active and Suspected Problems SBO (small bowel obstruction) (Acute) Subjective: patient feeling OK, abdominal pain controlled with meds no flatus, feels rumbling - Physical Exam General: Alert, Oriented x3 Oral: Moist Mucosa Neck: Supple Lungs: Normal air movement Abdomen: Soft, - - dressing with seepage unchanged from yesterday Vital Signs Temp Pulse Resp BP Pulse Ox 98.5 F 71 16 135/56 H 94 04/10/18 10:20 04/10/18 11:28 04/10/18 11:28 04/10/18 10:20 04/10/18 11:45 Oxygen Flow Rate (L/min) 4 Oxygen Delivery Method Nasal Cannula Weight: 79.5 kg Body Mass Index (BMI) 29.1 Finger Stick Blood Glucose 152 Intake and Output for Last 24 Hours 04/08/18 04/09/18 04/10/18 23:59 23:59 23:59 Intake Total 2389 / 2389 1116 / 1116 Output Total 170 / 170 1725 / 1725 850 / 850 Balance -170 / -170 664 / 664 266 / 266 Laboratory Tests Past 24 Hrs 04/09/18 04/10/18 04/10/18 13:02 05:35 05:35 WBC 7.8 RBC 4.17 L Hgb 13.3 Hct 40.5 MCV 97.1 MCH 31.9 MCHC 32.8 RDW 13.2 RDW Differential 45.7 H Plt Count 162 MPV 10.4 Immature Gran % (Auto) 0.300 Neut % (Auto) 67.2 Lymph % (Auto) 19.6 [place] % (Auto) 11.7 H Eos % (Auto) 0.9 Baso % (Auto) 0.3 Absolute Neuts (auto) 5.3 Absolute Lymphs (auto) 1.54 Total Counted Not Reportable Sodium 140 143 Potassium 4.1 3.5 Chloride 107 107 Carbon Dioxide 26.0 25.0 Anion Gap 7 11 BUN 11 12 Creatinine 0.65 0.46 L Estim Creat Clear Calc 81.79 115.57 Est GFR (MDRD) Af Amer 119 176 Est GFR (MDRD) Non-Af 98 146 BUN/Creatinine Ratio 16.9 26.0 H Glucose 112 H 109 H Calcium 7.9 L 8.0 L POC Glucose 04/10/18 04/10/18 04/09/18 11:20 06:12 23:22 POC Glucose 108 94 103 04/09/18 17:28 POC Glucose 129 H Medical Necessity - Tobacco Use Smoking Status: Current every day smoker Tobacco Use: Cigarettes Assessment/Plan All Active Problems SBO (small bowel obstruction) (Acute) Impression: POD#2 s/p exploratory laparotomy, lysis of adhesions Plan: encourage ambulation in the hallways incentive spirometry NPO until passes flatus appreciate hospitalist service medical management
[2018-04-10] MEDS: 0.9% Normal Saline 1,000 ML 75 ML IV (17:33)
[2018-04-10 17:36] LABS: Bedside Glucose 89 mg/dL (70-110)
[2018-04-10 23:45] LABS: Bedside Glucose 105 mg/dL (70-110)
[2018-04-11] VITALS (12 sets, daily range): BP systolic 149–166; BP diastolic 62–71; PULSE 74–87; RESP 16–18; TEMP 36.8–37.5; O2SAT 87–97
[2018-04-11 06:06] LABS: Absolute Lymphocyte Count 1.86 X10^3/ul (0.83-4.51); Absolute Neutrophil Count 7.1 X10^3/uL (2.0-7.7); Basophil# 0.02 X10^3/uL; Basophil% 0.2 % (0-1); Eosinophil# 0.17 X10^3/uL; Eosinophils% 1.7 % (0-5); Hemoglobin 13.9 g/dl (12.0-15.0); Lymphocyte # 1.86 X10^3/ul (4.0); Lymphocyte % 18.7 % (19-41); Mean Corp Hgb Conc 34.8 g/gl (32-36); Mean Platelet Vol. 10.1 fl (6.2-12.0); Monocyte# 0.79 X10^3/uL; Monocyte% 7.9 % (0-10); Neutrophil % 71.2 % (47-70); Platelet Count 156 K/mm3 (150-450); RBC Distribution Width CV 12.4 % (11.6-14.6); RBC Distribution Width SD 42.2 fl (35.1-43.9); Red Blood Count 4.21 M/mm3 (4.2-5.4)
[2018-04-11 06:26] LABS: Anion Gap 9 (5-15); BUN 12 mg/dL (7-18); BUN/Creat Ratio 25.5 RATIO (10-20); Calcium,Total 8.1 mg/dL (8.5-10.1); Chloride 107 mmol/L (98-107); Creatinine, Serum 0.47 mg/dL (0.55-1.02); EST Glomerular Filtration Rate 143 mL/min (>60); Est Glom Filt Rate - Afr Amer 173 mL/min (>60); Estimated Creatinine Clearance 113.11 ml/min; Glucose 94 mg/dL (74-106); Potassium 3.5 mmol/L (3.5-5.1); Sodium Level 139 mmol/L (136-145)
[2018-04-11 06:31] LABS: Bedside Glucose 103 mg/dL (70-110)
[2018-04-11 06:38] LABS: POSITIVE COUNT NO; POSITIVE DIFFERENTIAL NO; POSITIVE MORPHOLOGY NO
[2018-04-11] MEDS: 0.9% Normal Saline 1,000 ML 75 ML IV ×2 (06:47→21:26)
[2018-04-11] MEDS: Ipratropium/Albuterol Sulfate 3 ML AMPUL.NEB INHALATION ×4 (06:52→19:15)
[2018-04-11] MEDS: Metoprolol Tartrate 25 MG Tablet PO ×2 (09:49→21:25)
[2018-04-11 10:11] LABS: Pathologist Review Reviewed
--- NOTE | 2018-04-11 11:19 | PCM.PN.HOSP ---
Patient Problems: Active and Suspected Problems SBO (small bowel obstruction) (Acute) Subjective: Appears uncomfortable and in pain. No nausea but also no BM or flatus today Vitals/I&O's: Vital Signs Temp Pulse Resp BP Pulse Ox 98.3 F 74 18 155/65 H 93 04/11/18 07:56 04/11/18 09:49 04/11/18 07:56 04/11/18 07:56 04/11/18 07:56 Oxygen Flow Rate (L/min) [ 0 AMBULATING on Room Air] Oxygen Flow Rate (L/min) 5 Oxygen Delivery Method Nasal Cannula Weight: 175 lb 4.28 oz Body Mass Index (BMI) 29.1 Finger Stick Blood Glucose 152 Intake and Output for Last 24 Hours 04/09/18 04/10/18 04/11/18 23:59 23:59 23:59 Intake Total 2389 / 2389 1767 / 1767 940 / 940 Output Total 1725 / 1725 1150 / 1150 600 / 600 Balance 664 / 664 617 / 617 340 / 340 General: Alert, Oriented x3, Cooperative, - - in pain HEENT: Atraumatic, EOMI, Normocephalic Oral: Moist Mucosa Neck: Supple, No JVD Lungs: Clear to auscultation, Normal air movement, No rhonchi, No wheeze, No rales Cardiovascular: Regular rate, Regular Rhythm, Normal S1, Normal S2, No murmurs Abdomen: Soft, Non Tender, Non-Distended, No Hepato-splenomegaly Extremities: No edema, Capillary Refill Less than 3 Seconds Neurological: Neuro grossly intact, Sensory exam intact to light touch and pain Psych/Mental Status: Normal Affect, Appropriate Laboratory Results 04/09/18 06:20: Diff Path Review Reviewed 04/10/18 11:20: POC Glucose 108 04/10/18 17:27: POC Glucose 89 04/10/18 23:39: POC Glucose 105 04/11/18 05:42: WBC 10.0, RBC 4.21, Hgb 13.9, Hct 40.0, MCV 95.0, MCH 33.0 H, MCHC 34.8, RDW 12.4, RDW Differential 42.2, Plt Count 156, MPV 10.1, Immature Gran % (Auto) 0.300, Neut % (Auto) 71.2 H, Lymph % (Auto) 18.7 L, [place] % (Auto) 7.9, Eos % (Auto) 1.7, Baso % (Auto) 0.2, Absolute Neuts (auto) 7.1, Absolute Lymphs (auto) 1.86, Total Counted Not Reportable 04/11/18 05:42: Sodium 139, Potassium 3.5, Chloride 107, Carbon Dioxide 23.0, Anion Gap 9, BUN 12, Creatinine 0.47 L, Estim Creat Clear Calc 113.11, Est GFR (MDRD) Af Amer 173, Est GFR (MDRD) Non-Af 143, BUN/Creatinine Ratio 25.5 H, Glucose 94, Calcium 8.1 L 04/11/18 06:24: POC Glucose 103 Current Medications Albuterol/Ipratropium (Duoneb) 3 ml INHALATION Q4HWA.RT [facility] Last Admin: 04/11/18 10:59 Dose: 3 ml Dextrose (D50w Syringe) 0 gm IV X1 PRN; Protocol PRN Reason: Hypoglycemia Enalaprilat (Vasotec) 1.25 mg IV Q6H PRN PRN PRN Reason: SBP>160 mmhg Glucagon () 1 mg IM .X1 PRN PRN Reason: Hypoglycemia Sodium Chloride () 250 mls @ 15 mls/hr IV .[id number] PRN PRN Reason: SALINE FLUSH Sodium Chloride () 1,000 mls @ 75 mls/hr IV .[id number] [facility] Last Admin: 04/11/18 06:47 Dose: 75 mls/hr Insulin Human Lispro (Humalog Kwikpen (Bkc)) 0 unit SQ Q6 JASON PRN Reason: Protocol Last Admin: 04/11/18 07:10 Dose: Not Given Metoprolol Tartrate (Lopressor (Beta Melany)) 25 mg PO BID [facility] Last Admin: 04/11/18 09:49 Dose: 25 mg Morphine Sulfate () 4 mg IV Q1H PRN PRN PRN Reason: SEVERE PAIN (6-10/10) Last Admin: 04/10/18 03:50 Dose: 4 mg Ondansetron HCl (Zofran) 4 mg IV Q8H PRN PRN PRN Reason: NAUSEA/VOMITING Sodium Chloride () 5 - 30 ml IV UD PRN PRN Reason: SALINE FLUSH Last Admin: 04/10/18 03:51 Dose: 10 ml Medical Necessity - Tobacco Use Smoking Status: Current every day smoker Tobacco Use: Cigarettes Assessment/Plan All Active Problems SBO (small bowel obstruction) (Acute) 1. SBO/H/o multiple abdominal surgeries - POD 3 from ex lap with lysis of adhesions - Still no flatus or BM - c/w NPO for now - c/w IVF - Pain control per primary team - She has been hypokalemic so will check mag and phos today prior to replacing potassium 2. HTN - At home on HCTZ and metoprolol - Hold while NPO - IV enalipril as needed 3. DM2 - A1c 5.9 - C/w sliding scale and accuchecks DVT: Lovenox Diet: NPO Code: FULL Code Visit Inpatient E&M: 13550 Subs Hosp L2
[2018-04-11 12:04] LABS: Magnesium 2.2 mg/dL (1.6-2.6); Phosphorus 2.4 mg/dL (2.5-4.9)
[2018-04-11 12:11] LABS: Bedside Glucose 110 mg/dL (70-110)
--- NOTE | 2018-04-11 13:23 | PCM.PN.SRG ---
Patient Problems: Active and Suspected Problems SBO (small bowel obstruction) (Acute) Subjective: still no flatus, no BM I have encourage ambulation, patient has ambulated hallways once,mostly walking in room - Physical Exam General: Alert, Oriented x3 Oral: Moist Mucosa Neck: Supple Cardiovascular: Regular rate Abdomen: Soft, - - dressing intact - no new seepage Vital Signs Temp Pulse Resp BP Pulse Ox 98.3 F 75 16 155/65 H 93 04/11/18 07:56 04/11/18 10:59 04/11/18 10:59 04/11/18 07:56 04/11/18 07:56 Oxygen Flow Rate (L/min) [ 0 AMBULATING on Room Air] Oxygen Flow Rate (L/min) 5 Oxygen Delivery Method Nasal Cannula Weight: 79.5 kg Body Mass Index (BMI) 29.1 Finger Stick Blood Glucose 152 Intake and Output for Last 24 Hours 04/09/18 04/10/18 04/11/18 23:59 23:59 23:59 Intake Total 2389 / 2389 1767 / 1767 1387 / 1387 Output Total 1725 / 1725 1150 / 1150 1100 / 1100 Balance 664 / 664 617 / 617 287 / 287 Laboratory Tests Past 24 Hrs 04/09/18 04/11/18 04/11/18 06:20 05:42 05:42 WBC 10.0 RBC 4.21 Hgb 13.9 Hct 40.0 MCV 95.0 MCH 33.0 H MCHC 34.8 RDW 12.4 RDW Differential 42.2 Plt Count 156 MPV 10.1 Immature Gran % (Auto) 0.300 Neut % (Auto) 71.2 H Lymph % (Auto) 18.7 L [place] % (Auto) 7.9 Eos % (Auto) 1.7 Baso % (Auto) 0.2 Absolute Neuts (auto) 7.1 Absolute Lymphs (auto) 1.86 Total Counted Not Reportable Diff Path Review Reviewed Sodium 139 Potassium 3.5 Chloride 107 Carbon Dioxide 23.0 Anion Gap 9 BUN 12 Creatinine 0.47 L Estim Creat Clear Calc 113.11 Est GFR (MDRD) Af Amer 173 Est GFR (MDRD) Non-Af 143 BUN/Creatinine Ratio 25.5 H Glucose 94 Calcium 8.1 L Phosphorus Magnesium 04/11/18 05:42 WBC RBC Hgb Hct MCV MCH MCHC RDW RDW Differential Plt Count MPV Immature Gran % (Auto) Neut % (Auto) Lymph % (Auto) [place] % (Auto) Eos % (Auto) Baso % (Auto) Absolute Neuts (auto) Absolute Lymphs (auto) Total Counted Diff Path Review Sodium Potassium Chloride Carbon Dioxide Anion Gap BUN Creatinine Estim Creat Clear Calc Est GFR (MDRD) Af Amer Est GFR (MDRD) Non-Af BUN/Creatinine Ratio Glucose Calcium Phosphorus 2.4 L Magnesium 2.2 POC Glucose 04/11/18 04/11/18 04/10/18 12:06 06:24 23:39 POC Glucose 110 103 105 04/10/18 17:27 POC Glucose 89 Medical Necessity - Tobacco Use Smoking Status: Current every day smoker Tobacco Use: Cigarettes Assessment/Plan All Active Problems SBO (small bowel obstruction) (Acute) Impression: POD#3 s/p exploratory laparotomy, lysis of adhesions Plan: encourage ambulation in the hallways incentive spirometry NPO until passes flatus appreciate hospitalist service medical management
--- NOTE | 2018-04-11 14:52 | NURSING ---
pharmacy called at this time regarding potassium phos= not on unit. Eleonora looking into and will send up as soon as able.
--- NOTE | 2018-04-11 15:47 | NURSING ---
Addendum entered by Marlene Kim 04/11/18 15:48: therapy included in overall count of 4 times Original Note: patient up x4 in hallway so far this shift- however, is not able to tolerate far distances due to increase SOB and coughing. Patient was also up in room walking as well this morning. Patient has been up with therapy x2
[2018-04-11 16:31] LABS: Bedside Glucose 88 mg/dL (70-110)
--- NOTE | 2018-04-11 20:53 | NURSING ---
Patient up and ambulated in hallway with [employer].
[2018-04-11 23:55] LABS: Bedside Glucose 85 mg/dL (70-110)
[2018-04-12] VITALS (13 sets, daily range): BP systolic 142–168; BP diastolic 58–77; PULSE 67–85; RESP 16–20; TEMP 36.7–37.2; O2SAT 91–98
[2018-04-12 05:36] LABS: Bedside Glucose 95 mg/dL (70-110)
[2018-04-12] MEDS: Enalaprilat 1.25 MG/ML Vial IV (05:41)
[2018-04-12 06:19] LABS: Anion Gap 11 (5-15); BUN 12 mg/dL (7-18); BUN/Creat Ratio 28.9 RATIO (10-20); Calcium,Total 8.3 mg/dL (8.5-10.1); Chloride 108 mmol/L (98-107); Creatinine, Serum 0.42 mg/dL (0.55-1.02); EST Glomerular Filtration Rate 165 mL/min (>60); Est Glom Filt Rate - Afr Amer 200 mL/min (>60); Estimated Creatinine Clearance 126.57 ml/min; Glucose 85 mg/dL (74-106); Phosphorus 2.6 mg/dL (2.5-4.9); Potassium 3.6 mmol/L (3.5-5.1); Sodium Level 142 mmol/L (136-145)
--- NOTE | 2018-04-12 06:22 | NURSING ---
Patient sitting up in chair at this time.
[2018-04-12] MEDS: Ipratropium/Albuterol Sulfate 3 ML AMPUL.NEB INHALATION ×4 (06:56→19:18)
--- NOTE | 2018-04-12 07:12 | PCM.PN.SRG ---
Patient Problems: Active and Suspected Problems SBO (small bowel obstruction) (Acute) Subjective: patient ambulated well yesterday - first day of good ambulation - walked several times in hallway requiring breathing treatments - concern for developing pneumonia still no flatus - Physical Exam General: Alert, Oriented x3 Oral: Moist Mucosa Neck: Supple Lungs: Normal air movement Cardiovascular: Regular rate Abdomen: Soft - distended, tender to deep palpation but no peritoneal signs, wound intact, no seepage Vital Signs Temp Pulse Resp BP Pulse Ox 98.3 F 77 18 168/65 H 94 04/12/18 05:35 04/12/18 05:35 04/12/18 05:35 04/12/18 05:35 04/12/18 05:35 Oxygen Flow Rate (L/min) [ 0 AMBULATING on Room Air] Oxygen Flow Rate (L/min) 3 Oxygen Delivery Method Nasal Cannula Weight: 79.5 kg Body Mass Index (BMI) 29.1 Finger Stick Blood Glucose 152 Intake and Output for Last 24 Hours 04/10/18 04/11/18 04/12/18 23:59 23:59 23:59 Intake Total 1767 / 1767 2604 / 2604 419 / 419 Output Total 1150 / 1150 2100 / 2100 550 / 550 Balance 617 / 617 504 / 504 -131 / -131 Laboratory Tests Past 24 Hrs 04/09/18 04/11/18 04/12/18 06:20 05:42 05:48 Diff Path Review Reviewed Sodium 142 Potassium 3.6 Chloride 108 H Carbon Dioxide 23.0 Anion Gap 11 BUN 12 Creatinine 0.42 L Estim Creat Clear Calc 126.57 Est GFR (MDRD) Af Amer 200 Est GFR (MDRD) Non-Af 165 BUN/Creatinine Ratio 28.9 H Glucose 85 Calcium 8.3 L Phosphorus 2.4 L 2.6 Magnesium 2.2 POC Glucose 04/12/18 04/11/18 04/11/18 05:24 23:46 16:24 POC Glucose 95 85 88 04/11/18 12:06 POC Glucose 110 Medical Necessity - Tobacco Use Smoking Status: Current every day smoker Tobacco Use: Cigarettes Assessment/Plan All Active Problems SBO (small bowel obstruction) (Acute) Impression: POD#4 s/p exploratory laparotomy, lysis of adhesions - postop ileus Plan: encourage ambulation in the hallways - has only started aggressive ambulation yesterday incentive spirometry NPO until passes flatus appreciate hospitalist service medical management
[2018-04-12] MEDS: Metoprolol Tartrate 25 MG Tablet PO ×2 (08:46→22:19)
[2018-04-12] MEDS: HYDROCHLOROTHIAZIDE 12.5 MG CAPSULE PO (08:47)
[2018-04-12] MEDS: 0.9% Normal Saline 1,000 ML 75 ML IV (09:38)
--- NOTE | 2018-04-12 10:35 | PCM.PN.HOSP ---
Patient Problems: Active and Suspected Problems SBO (small bowel obstruction) (Acute) Subjective: Stil with abdominal pain and no flatus or BM. She did ambulate more yesterday but continues to require oxygen Objective: General: Alert, Oriented x3, Cooperative, - - in pain HEENT: Atraumatic, EOMI, Normocephalic Oral: Moist Mucosa Neck: Supple, No JVD Lungs: Clear to auscultation, Normal air movement, No rhonchi, No wheeze, No rales, diminished at bases Cardiovascular: Regular rate, Regular Rhythm, Normal S1, Normal S2, No murmurs Abdomen: Soft, Non Tender except at incision, Non-Distended, No Hepato-splenomegaly Extremities: No edema, Capillary Refill Less than 3 Seconds Neurological: Neuro grossly intact, Sensory exam intact to light touch and pain Psych/Mental Status: Normal Affect, Appropriate Vitals/I&O's: Vital Signs Temp Pulse Resp BP Pulse Ox 98.0 F 70 20 H 148/73 H 97 04/12/18 07:46 04/12/18 08:46 04/12/18 07:46 04/12/18 07:46 04/12/18 07:46 Oxygen Flow Rate (L/min) [ 0 AMBULATING on Room Air] Oxygen Flow Rate (L/min) 2 Oxygen Delivery Method Nasal Cannula Weight: 175 lb 4.28 oz Body Mass Index (BMI) 29.1 Finger Stick Blood Glucose 152 Intake and Output for Last 24 Hours 04/10/18 04/11/18 04/12/18 23:59 23:59 23:59 Intake Total 1767 / 1767 2604 / 2604 419 / 419 Output Total 1150 / 1150 2100 / 2100 550 / 550 Balance 617 / 617 504 / 504 -131 / -131 Laboratory Results 04/11/18 05:42: Phosphorus 2.4 L, Magnesium 2.2 04/11/18 12:06: POC Glucose 110 04/11/18 16:24: POC Glucose 88 04/11/18 23:46: POC Glucose 85 04/12/18 05:24: POC Glucose 95 04/12/18 05:48: Sodium 142, Potassium 3.6, Chloride 108 H, Carbon Dioxide 23.0, Anion Gap 11, BUN 12, Creatinine 0.42 L, Estim Creat Clear Calc 126.57, Est GFR (MDRD) Af Amer 200, Est GFR (MDRD) Non-Af 165, BUN/Creatinine Ratio 28.9 H, Glucose 85, Calcium 8.3 L, Phosphorus 2.6 Current Medications Albuterol/Ipratropium (Duoneb) 3 ml INHALATION Q4HWA.RT [facility] Last Admin: 04/12/18 06:56 Dose: 3 ml Dextrose (D50w Syringe) 0 gm IV X1 PRN; Protocol PRN Reason: Hypoglycemia Enalaprilat (Vasotec) 1.25 mg IV Q6H PRN PRN PRN Reason: SBP>160 mmhg Last Admin: 04/12/18 05:41 Dose: 1.25 mg Glucagon () 1 mg IM .X1 PRN PRN Reason: Hypoglycemia Hydrochlorothiazide (Hydrochlorothiazide) 12.5 mg PO DAILY [facility] Last Admin: 04/12/18 08:47 Dose: 12.5 mg Sodium Chloride () 250 mls @ 15 mls/hr IV .[id number] PRN PRN Reason: SALINE FLUSH Sodium Chloride () 1,000 mls @ 75 mls/hr IV .[id number] [facility] Last Admin: 04/12/18 09:38 Dose: 75 mls/hr Insulin Human Lispro (Humalog Kwikpen (Bkc)) 0 unit SQ Q6 JASON PRN Reason: Protocol Last Admin: 04/12/18 05:34 Dose: Not Given Levofloxacin (Levaquin Tablet) 750 mg PO DAILY@0600 [facility] Metoprolol Tartrate (Lopressor (Beta Melany)) 25 mg PO BID [facility] Last Admin: 04/12/18 08:46 Dose: 25 mg Morphine Sulfate () 4 mg IV Q1H PRN PRN PRN Reason: SEVERE PAIN (6-10/10) Last Admin: 04/10/18 03:50 Dose: 4 mg Ondansetron HCl (Zofran) 4 mg IV Q8H PRN PRN PRN Reason: NAUSEA/VOMITING Potassium [facility] ([facility]Dur[facility] Last Admin: 04/12/18 08:47 Dose: 20 meq Sodium Chloride () 5 - 30 ml IV UD PRN PRN Reason: SALINE FLUSH Last Admin: 04/10/18 03:51 Dose: 10 ml Medical Necessity - Tobacco Use Smoking Status: Current every day smoker Tobacco Use: Cigarettes Assessment/Plan All Active Problems SBO (small bowel obstruction) (Acute) 1. SBO/H/o multiple abdominal surgeries - POD 4 from ex lap with lysis of adhesions - Still no flatus or BM - c/w NPO for now advance per surgery - c/w IVF - Pain control per primary team -replaced phos yesterday as well as potassium 2. HTN - restart HCTZ and potassium replacement - c.w metoprolol - IV enalipril as needed 3. DM2 - A1c 5.9 - C/w sliding scale and accuchecks 4. Pneumonia - she has no leukocytosis however CXR from today appears similar to the on on 04/10 - Her previous CXR was read as pneumonia and has she continues to require o2 will treat with levaquin as this is community acquired - treat for 7 days, stop date 04/18 DVT: Lovenox Diet: NPO - ADAT per primary Code: FULL Will continue to follow Code Visit Inpatient E&M: 85507 Subs Hosp L2
[2018-04-12 11:41] LABS: Bedside Glucose 91 mg/dL (70-110)
[2018-04-12] MEDS: levoFLOXacin 750 MG Tablet PO (12:19)
--- NOTE | 2018-04-12 14:23 | PCM.PN.BLA ---
Progress Note Patient has passed flatus, decreased abdominal pain, feels improved tolerating liquids still with respiratory problems - followed by internal medicine from a surgical standpoint, patient can be discharged on a liquid diet, advance to regular at home as tolerated Defer to internal medicine timing of discharge given patient's pulmonary status
[2018-04-12 16:46] LABS: Bedside Glucose 90 mg/dL (70-110)
[2018-04-12 23:41] LABS: Bedside Glucose 96 mg/dL (70-110)
[2018-04-13] VITALS (15 sets, daily range): BP systolic 154–158; BP diastolic 74–79; PULSE 68–78; RESP 16–20; TEMP 36.7–37.1; O2SAT 89–96
[2018-04-13] MEDS: 0.9% Normal Saline 1,000 ML 75 ML IV (02:46)
[2018-04-13] MEDS: levoFLOXacin 750 MG Tablet PO (06:08)
[2018-04-13 06:25] LABS: Bedside Glucose 103 mg/dL (70-110)
[2018-04-13] MEDS: Ipratropium/Albuterol Sulfate 3 ML AMPUL.NEB INHALATION ×3 (07:22→19:47)
[2018-04-13] MEDS: HYDROCHLOROTHIAZIDE 12.5 MG CAPSULE PO (10:53)
[2018-04-13] MEDS: Metoprolol Tartrate 25 MG Tablet PO ×2 (10:53→21:09)
[2018-04-13 11:50] LABS: Bedside Glucose 123 mg/dL (70-110)
--- NOTE | 2018-04-13 17:06 | PCM.PN.SRG ---
Patient Problems: Active and Suspected Problems SBO (small bowel obstruction) (Acute) Subjective: patient has been passing flatus, no bowel movement yet, but she has chronic constipation ambulating halls very well - Physical Exam General: Alert, Oriented x3 Oral: Moist Mucosa Neck: Supple Abdomen: Soft, - - wound intact and dry Vital Signs Temp Pulse Resp BP Pulse Ox 98.8 F 68 18 157/76 H 93 04/13/18 14:47 04/13/18 14:47 04/13/18 14:47 04/13/18 14:47 04/13/18 14:47 Oxygen Flow Rate (L/min) [ 0 AMBULATING on Room Air] Oxygen Flow Rate (L/min) 3 Oxygen Delivery Method Room Air Weight: 79.5 kg Body Mass Index (BMI) 29.1 Finger Stick Blood Glucose 152 Intake and Output for Last 24 Hours 04/11/18 04/12/18 04/13/18 23:59 23:59 23:59 Intake Total 2604 / 2604 2606 / 2606 540 / 540 Output Total 2100 / 2100 750 / 750 1050 / 1050 Balance 504 / 504 1856 / 1856 -510 / -510 POC Glucose 04/13/18 04/13/18 04/12/18 10:51 06:01 23:34 POC Glucose 123 H 103 96 Medical Necessity - Tobacco Use Smoking Status: Current every day smoker Tobacco Use: Cigarettes Assessment/Plan All Active Problems SBO (small bowel obstruction) (Acute) Impression: POD#5 s/p exploratory laparotomy, lysis of adhesions - postop ileus - resolved Plan: d/c to home
--- NOTE | 2018-04-13 17:08 | PCM.DC.GS ---
Discharge Diet: No Restrictions, - - drink plenty of fluids to avoid prolonged constipation Discharge Activity: Return to Normal Activity, May not drive while taking narcotic pain medications. Lifting Restrictions: no lifting greater than 20 pounds until further notice Call your doctor if your incision/area has: Continuous Slow Oozing, Foul Smelling Discharge Call your doctor if you observe: Fever of 101 or Higher Additional Dressing/Incision Instructions:: Leave wound open to air. May get wet in shower. Do not soak - no tub baths/swimming Allergies/Adverse Reactions: Allergies propoxyphene [From Darvon] Allergy (Verified 04/08/18 16:01) Unknown Medications to take at Discharge Hydrochlorothiazide 12.5 mg PO DAILY 04/08/18 Metoprolol Tartrate 25 mg PO BID 04/08/18 Potassium Chloride [K-Tab ER] 40 meq PO DAILY 04/08/18 Metformin HCl 500 mg PO DAILY 04/09/18 Hydrocodone Bitart/Apap 5-325 [[place] 5MG-325MG] 1 tab PO Q6H PRN PRN 5 Days #20 tab 04/13/18 The following prescriptions were given: Hydrocodone Bitart/Apap 5-325 [[place] 5MG-325MG] 1 tab PO Q6H PRN PRN 5 Days #20 tab PRN Reason: Pain Primary Care Physician: Kaleb Ferraro [Primary Care Provider] - Test Results: Test results from this visit will be discussed in further detail at your follow-up appointment, if applicable. Please Follow Up With: Karen Rivero MD - call for date and time, thank you When: to be seen on Sunday 04/15 or Thursday 04/19 (with Sumi Collazo) or 04/20
--- NOTE | 2018-04-13 17:59 | PCM.PN.HOSP ---
Patient Problems: Active and Suspected Problems SBO (small bowel obstruction) (Acute) Subjective: f/u for SBO s/p exp lap and lysis of adhesions and hypoxia as well Has been getting up and ambulating more and more Using incentive spirometry as well Vitals/I&O's: Vital Signs Temp Pulse Resp BP Pulse Ox 98.8 F 68 18 157/76 H 93 04/13/18 14:47 04/13/18 14:47 04/13/18 14:47 04/13/18 14:47 04/13/18 14:47 Oxygen Flow Rate (L/min) [ 0 AMBULATING on Room Air] Oxygen Flow Rate (L/min) 3 Oxygen Delivery Method Room Air Weight: 79.5 kg Body Mass Index (BMI) 29.1 Finger Stick Blood Glucose 152 Intake and Output for Last 24 Hours 04/11/18 04/12/18 04/13/18 23:59 23:59 23:59 Intake Total 2604 / 2604 2606 / 2606 540 / 540 Output Total 2100 / 2100 750 / 750 1050 / 1050 Balance 504 / 504 1856 / 1856 -510 / -510 General: Alert, Oriented x3, Cooperative, No apparent distress Neck: Supple Lungs: Clear to auscultation, No rhonchi, No wheeze, Diminished Cardiovascular: Regular rate, Regular Rhythm, Normal S1, Normal S2, No murmurs Abdomen: Hypoactive Bowel Sounds, - - reduced BS, no undue tenderness Extremities: No edema Skin: No rashes Neurological: Neuro grossly intact Psych/Mental Status: Normal Affect Laboratory Results 04/12/18 23:34: POC Glucose 96 04/13/18 06:01: POC Glucose 103 04/13/18 10:51: POC Glucose 123 H Current Medications Albuterol/Ipratropium (Duoneb) 3 ml INHALATION Q4HWA.RT JASON Last Admin: 04/13/18 15:26 Dose: Not Given Dextrose (D50w Syringe) 0 gm IV X1 PRN; Protocol PRN Reason: Hypoglycemia Enalaprilat (Vasotec) 1.25 mg IV Q6H PRN PRN PRN Reason: SBP>160 mmhg Last Admin: 04/12/18 05:41 Dose: 1.25 mg Glucagon () 1 mg IM .X1 PRN PRN Reason: Hypoglycemia Hydrochlorothiazide (Hydrochlorothiazide) 12.5 mg PO DAILY [facility] Last Admin: 04/13/18 10:53 Dose: 12.5 mg Potassium Chloride/Dextrose/Sod Cl () 1,000 mls @ 150 mls/hr IV .Q6H40M [facility] Last Admin: 04/13/18 10:52 Dose: 150 mls/hr Insulin Glargine (Lantus (Bk)) 8 units SC DAILY [facility] Last Admin: 04/13/18 11:29 Dose: 8 u Insulin Human Lispro (Humalog Kwikpen (Bk)) 0 unit SQ Q6 JASON PRN Reason: Protocol Last Admin: 04/13/18 10:53 Dose: Not Given Levofloxacin (Levaquin Tablet) 750 mg PO DAILY@0600 [facility] Last Admin: 04/13/18 06:08 Dose: 750 mg Metoprolol Tartrate (Lopressor (Beta Melany)) 25 mg PO BID [facility] Last Admin: 04/13/18 10:53 Dose: 25 mg Morphine Sulfate () 4 mg IV Q1H PRN PRN PRN Reason: SEVERE PAIN (6-10/10) Last Admin: 04/10/18 03:50 Dose: 4 mg Ondansetron HCl (Zofran) 4 mg IV Q8H PRN PRN PRN Reason: NAUSEA/VOMITING Sodium Chloride () 5 - 30 ml IV UD PRN PRN Reason: SALINE FLUSH Last Admin: 04/10/18 03:51 Dose: 10 ml Medical Necessity - Tobacco Use Smoking Status: Current every day smoker Tobacco Use: Cigarettes Assessment/Plan All Active Problems SBO (small bowel obstruction) (Acute) 1. SBO/H/o multiple abdominal surgeries - POD 5 from ex lap with lysis of adhesions passed some flatus today and started on clear liquids. really not taking much BS still quite hypoactive Will need to watch patient for one more day 2. HTN Well controlled 3. DM2 - A1c 5.9. Well controlled - C/w sliding scale and accuchecks 4. Hypoxia. Suspect this is chronic from COPD or some other pulmonary or vascular condition May have undiagnosed COPD. I think pneumonia unlikely clinically. Encouraged incentive spirometry Will refer for PFTs upon dc as outpatient and perhaps pulmonology consult as well Evaluated for home O2 Code Visit Inpatient E&M: [id number] [facility] Hosp
[2018-04-13 18:15] LABS: Bedside Glucose 130 mg/dL (70-110)
[2018-04-13 23:45] LABS: Bedside Glucose 149 mg/dL (70-110)
[2018-04-14 02:24] VITALS: BP 130/62; PULSE 60; RESP 16; TEMP 36.7; O2SAT 93
[2018-04-14 06:06] LABS: Bedside Glucose 112 mg/dL (70-110)
[2018-04-14 07:10] VITALS: PULSE 70; RESP 20
[2018-04-14] MEDS: Ipratropium/Albuterol Sulfate 3 ML AMPUL.NEB INHALATION (07:24)
[2018-04-14 07:49] VITALS: O2SAT 94
[2018-04-14 08:45] VITALS: BP 143/69; PULSE 73; RESP 18; TEMP 37; O2SAT 93
[2018-04-14 08:49] VITALS: PULSE 73
[2018-04-14] MEDS: Metoprolol Tartrate 25 MG Tablet PO (08:49)
[2018-04-14] MEDS: HYDROCHLOROTHIAZIDE 12.5 MG CAPSULE PO (08:49)
[2018-04-14] MEDS: Fleet Enema 1 ML RECTAL (10:53)
--- NOTE | 2018-04-14 11:39 | PCM.DC ---
- Discharge Diagnoses Current Active Problems: Current Active and Chronic Problems Hypertension (Chronic) Diabetes mellitus type 2 in obese (Chronic) SBO (small bowel obstruction) (Acute) You will use the following diet at home:: No restrictions, Regular Your food should be the consistency of: Regular Discharge Activity: Return to Normal Activity, May not drive while taking narcotic pain medications. Return to work on:: 04/25/18 Call your doctor if your incision/area has: Continuous Slow Oozing, Foul Smelling Discharge Call your doctor if you observe: Fever of 101 or Higher Additional Dressing/Incision Instructions:: Leave wound open to air. May get wet in shower. Do not soak - no tub baths/swimming Allergies/Adverse Reactions: Allergies propoxyphene [From Darvon] Allergy (Verified 04/08/18 16:01) Unknown Medications to take at Discharge Hydrochlorothiazide 12.5 mg PO DAILY 04/08/18 Metoprolol Tartrate 25 mg PO BID 04/08/18 Potassium Chloride [K-Tab ER] 40 meq PO DAILY 04/08/18 Metformin HCl 500 mg PO DAILY 04/09/18 Hydrocodone Bitart/Apap 5-325 [[place] 5MG-325MG] 1 tab PO Q6H PRN PRN 5 Days #20 tab 04/13/18 The following prescriptions were given: Hydrocodone Bitart/Apap 5-325 [[place] 5MG-325MG] 1 tab PO Q6H PRN PRN 5 Days #20 tab PRN Reason: Pain Please follow up with your Primary Care Physician in: 1-2 weeks Test Results: Test results from this visit will be discussed in further detail at your follow-up appointment, if applicable. Please Follow Up With: Karen Rivero MD - call for date and time, thank you When: to be seen on Sunday 04/15 or Thursday 04/19 (with Sumi Collazo) or 04/20
--- NOTE | 2018-04-14 11:41 | PCM.DC.SUM ---
Discharge Date and Diagnosis - Problem List Patient Problems: Active and Suspected Problems SBO (small bowel obstruction) (Acute) Date of Admission: 04/08/18 Date of Discharge: 04/14/18 - Primary Discharge Diagnosis Active and Suspected Problems SBO (small bowel obstruction) (Acute) - Secondary Discharge Diagnosis Chronic Problems Hypertension (Chronic) Diabetes mellitus type 2 in obese (Chronic) Hospital Course and Treatment General surgery Operations: - - exploratory laparotomy with relief of obstruction and adhesiolysis Procedures: None Summary of Care Provided: The patient is a 62 year old F with h/o multiple abdominal surgeries. Admitted on account of small bowel obstruction suggested by symptoms and signs and confirmed by abdominal and pelvic imaging. Patient failed conservative measures and had to have an exploratory laparotomy and lysis of adhesions. post operative phase was complicated by slow return of bowel function. Today that is much better and patient tolerated a solid diet of toast and eggs. She is doing fine, was seen by general surgery and is stable for discharge Will follow up with general surgery as scheduled and instructed[] Discharge Diet: No Restrictions, - - drink plenty of fluids to avoid prolonged constipation Discharge Activity: Return to Normal Activity, May not drive while taking narcotic pain medications. Return to work on:: 04/25/18 Call your doctor if your incision/area has: Continuous Slow Oozing, Foul Smelling Discharge Call your doctor if you observe: Fever of 101 or Higher Additional Dressing/Incision Instructions:: Leave wound open to air. May get wet in shower. Do not soak - no tub baths/swimming Home Medications: Medications to take at Discharge Hydrochlorothiazide 12.5 mg PO DAILY 04/08/18 Metoprolol Tartrate 25 mg PO BID 04/08/18 Potassium Chloride [K-Tab ER] 40 meq PO DAILY 04/08/18 Metformin HCl 500 mg PO DAILY 04/09/18 Hydrocodone Bitart/Apap 5-325 [[place] 5MG-325MG] 1 tab PO Q6H PRN PRN 5 Days #20 tab 04/13/18 Following Prescrptions Were Given to Patient: Hydrocodone Bitart/Apap 5-325 [[place] 5MG-325MG] 1 tab PO Q6H PRN PRN 5 Days #20 tab PRN Reason: Pain Primary Care Physician: Kaleb Ferraro [Primary Care Provider] - Please follow up with your Primary Care Physician in: 1-2 weeks Please Follow Up With: Karen Rivero MD - call for date and time, thank you When: to be seen on Sunday 04/15 or Thursday 04/19 (with Sumi Collazo) or 04/20 Medical Necessity - Tobacco Use Smoking Status: Current every day smoker Tobacco Use: Cigarettes Meaningful Use Info Meaningful Use Diagnoses (Choose all that apply): None applicable Code Visit Inpatient E&M: [id number] [facility] Hosp
[2018-04-14 12:06] LABS: Bedside Glucose 97 mg/dL (70-110)
[2018-04-14 12:28] VITALS: BP 138/60; PULSE 65; RESP 18; TEMP 37.2; O2SAT 93
== END 2018-04-14 13:35 | disposition home or self-care (01) | DRG 336 ==
LOC: ED 17:43 → SDC 20:37 → MS3 23:31
PROVIDERS: Family Medicine; Internal Medicine; Admitting Provider Surgery; Emergency Provider Emergency Medicine; Family Provider Family Medicine; Visit Provider Internal Medicine
PROC: 0DN80ZZ Release Small Intestine, Open Approach (ICD-10-PCS; CPT 49000; principal; 2018-04-08 22:00)
DX: K56.50 Intestinal adhesions [bands], unspecified as to partial versus complete obstruction (principal); E87.2 Acidosis; K46.0 Unspecified abdominal hernia with obstruction, without gangrene; K91.89 Other postprocedural complications and disorders of digestive system; E11.9 Type 2 diabetes mellitus without complications; I10 Essential (primary) hypertension; E66.9 Obesity, unspecified; Z68.29 Body mass index [BMI] 29.0-29.9, adult; F17.210 Nicotine dependence, cigarettes, uncomplicated; E87.6 Hypokalemia; K56.7 Ileus, unspecified; R09.02 Hypoxemia
CPT/HCPCS: 36415; 71045; 74018; 74177; 80048; 80053; 81001; 82962; 83036; 83605; 83690; 83735; 84100; 85025; 94640; 94762; 97110; 97116; 97162; 97166; 97530; 97535; 97802; 99284; 99406; J7030; J7050; Q9967; A4216; J2405

== ENCOUNTER 2019-01-01 18:12 | Inpatient (IN) | payer SELFPAY ==
[2019-01-01] VITALS (21 sets, daily range): BP systolic 124–188; BP diastolic 52–74; PULSE 56–83; RESP 13–20; TEMP 36.2–36.8; O2SAT 93–97; BMI 30.4; BMI 28.8
--- NOTE | 2019-01-01 18:22 | RAD_ITS ---
STUDY: X-RAY CHEST REASON FOR EXAM: Female, 63 years old. Chest pain TECHNIQUE: AP portable COMPARISON: April 12, 2018. FINDINGS: The lungs are clear and expanded. There is no demonstrated pleural abnormality. Normal size heart. Normal mediastinum and poli. Normal visualized pulmonary arteries. Normal visualized aortic arch and descending thoracic aorta. Dorsal spine demonstrates mild degenerative change Normal visualized ribs, clavicles, and shoulders. There is no demonstrated abnormality of the visualized soft tissue structures of the upper abdomen. RAD/Chest 1 View (Portable) IMPRESSION: No acute cardiopulmonary pathology Electronically Signed: Nain Martini MD at 19:23 EDT , Service support ,
--- NOTE | 2019-01-01 18:22 | EKG12_ITS ---
Test Reason : CP Blood Pressure : / mmHG Vent. Rate : 077 BPM Atrial Rate : 077 BPM P-R Int : 146 ms QRS Dur : 084 ms QT Int : 398 ms P-R-T Axes : 076 069 061 degrees QTc Int : 450 ms Normal sinus rhythm Nonspecific ST abnormality Abnormal ECG Confirmed by DAVION ESCOBAR, AMBERLY ([id number]), editorial specialist CECILIO WRIGHT ([id number]) on 01/02/2019 3:50:41 PM Referred By: BB Confirmed By:AMBERLY RICARDO MD
--- NOTE | 2019-01-01 18:30 | ED.DCSUM_ITS ---
History of Present Illness Chief Complaint: Chest Pain Informant: Patient, EMS Onset: Days - 2 Activity at onset: Light Activity Timing: Intermittent Quality: Aching, Dull Location: Substernal - radiating up into anterior neck; no other radiation Current Severity: Gone Maximum Severity: 10/10 Worsened By: Exertion Relieved By: Rest Associated Symptoms: Negative for: Nausea, Vomiting, Diaphoresis, Dyspnea, Lightheadedness, Palpitations Narrative: Patient with severe dull achy chest pain, several episodes since 2 nights ago. The episode today that she called EMS for was more severe and lasted a bit longer, but still lasted total less than 10 minutes. The other episodes were lasting around 5 minutes each. Today the episode started after she got up from the patio to walk inside. No history of heart disease that she knows of but she has multiple risk factors. She took aspirin 325 mg a couple hours ago today, she does not take it daily. Recent Illness/Hospitalization: No CVD Risk Factors: Hypertension, Diabetes, Hypercholesterolemia, Smoking PE Risk Factors: Negative for: Recent Travel/Surgery, Recenet Immobilization, Prior DVT or PE, Cancer - Past Medical History (1) Hyperlipidemia Status: Chronic (2) Diabetes mellitus type 2 in obese Status: Chronic (3) Hypertension Status: Chronic Past Medical History - Allergies and Home Meds Allergies/Adverse Reactions: Allergies propoxyphene [From Darvon] Allergy (Verified 01/01/19 18:22) Unknown Primary Care Physician: Kaleb Ferraro [Primary Care Provider] - Smoking Status: Current every day smoker Drugs: None - Family History Paternal Family History: Reports: No pertinent history Review of Systems General: Reports: Malaise. Denies: Chills, Fever, Sweats Eyes: Denies: Visual changes - bilaterally, Diplopia ENT: Denies: Rhinorrhea, Sore throat Cardiovascular: Reports: Chest pain. Denies: Palpitations Respiratory: Denies: Dyspnea, Cough, Dyspnea on exertion Gastrointestinal: Denies: Abdominal pain, Nausea, Vomiting, Diarrhea, Melena, Hematochezia Genitourinary: Denies: Dysuria, Hematuria, Frequency Musculoskeletal: Denies: Back pain, Extremity Pain Skin: Denies: Rash, Wounds Neurological: Denies: Headache, Weakness, Numbness Physical Exam Vital Signs/Narrative: Vital Signs Temp Pulse Resp BP Pulse Ox 01/01/19 18:23 74 20 H 163/69 H 97 01/01/19 18:14 98.2 F 83 15 188/73 H 93 Inital Vital Signs reviewed: Yes General: Well nourished, Well developed, No Acute Distress Head: Normocephalic, Atraumatic Eyes: Perrl, EOMI ENT: Moist mucous membranes, No rhinorrhea Neck: Supple, Nontender Cardiovascular: Regular rate, Regular rhythm, No murmurs. Negative for: Tachycardia Respiratory: No distress, CTA bilaterally, Chest nontender Abdomen: Soft, Nontender, Nondistended, Normal bowel sounds Back: Nontender, Normal Inspection Extremities: Nontender, No edema. Negative for: Calf Tenderness Skin: Normal color, No rash, No Trauma Neurological: Alert, Oriented x3, Cranial nerves II-XII grossly intact, Normal Strength, Normal Sensation Psychological: Normal Mood - anxious, tearful, - - anxious Diagnostic/Tx/Re-eval Impressions Chest X-Ray 01/01/19 18:22 IMPRESSION: No acute cardiopulmonary pathology Electronically Signed: Nain Martini MD at 19:23 EDT , Service support , 01/01/19 18:22 Chest 1 View (Portable) [RAD] Stat Laboratory Results 01/01/19 01/01/19 01/01/19 18:15 18:15 18:15 WBC 11.9 H RBC 4.63 Hgb 15.2 H Hct 42.5 MCV 91.8 MCH 32.8 H MCHC 35.8 RDW 13.0 RDW Differential 43.1 Plt Count 196 MPV 10.5 Immature Gran % (Auto) 0.200 Neut % (Auto) 41.1 L Lymph % (Auto) 49.5 H [place] % (Auto) 6.8 Eos % (Auto) 2.1 Baso % (Auto) 0.3 Absolute Neuts (auto) 4.9 Absolute Lymphs (auto) 5.87 H Total Counted Not Reportable Differential Comment SCANNED PT 13.3 INR 1.0 APTT 27.7 Sodium 139 Potassium 2.7 L* Chloride 105 Carbon Dioxide 23.0 Anion Gap 11 BUN 13 Creatinine 0.94 Estim Creat Clear Calc 55.84 Est GFR (MDRD) Af Amer 77 Est GFR (MDRD) Non-Af 64 BUN/Creatinine Ratio 13.8 Glucose 143 H Calcium 8.6 Troponin I 0.044 - Rhythm Strip Rhythm Strip: Sinus Rhythm Rate: 77 Ectopy: None - EKG Initial EKG Interpretation: Sinus Rhythm, S-T Depression - V2-4 1mm, I and aVL 0.5mm. No acute ST elevations. Treatment: NTG Topical Repeat Eval: Pain Free VIKASH Risk: >/= 3RF, Severe Angina </=24 hours, ST Deviation >/= 0.5mm Score: 3 - Medical Decision Making Discussed the prehospital EKG which was questionably a STEMI with very subtle concave ST elevations inferiorly less than 1 mm, along with the ST depressions most prominent in V2 with Dr. Rivas on for STEMI, and again sent him our EKG documented above. The patient has no chest pain currently but her blood pressure is still very elevated in the 180s, it was 212 systolic prior to arrival here. He agrees it is not a STEMI, advises the usual work-up along with a Brilinta load, starting her on a heparin drip, nitroglycerin drip even though she is chest pain-free because of her blood pressure, as opposed to nitroglycerin paste, and starting her on some beta-blockers. Enzymes returned within normal limits. Her potassium is low at 2.7, ordered her some oral potassium. Her blood pressure is down to the 150s and has not received a beta-bill yet, waiting on it from pharmacy. She is more comfortable and chest pain-free still. Discussed with hospitalist for admission. Critical care time (excluding procedures): 30-74 minutes - 32 min; Discussing with patient and family, consultants, direct patient care at the bedside, and arranging admission ED Disposition - Plan for ED Patient: Disposition: Acute Care Hospital [facility] Diagnosis: ACS (acute coronary syndrome), Hypokalemia Referrals: Kaleb Ferraro [Primary Care Provider] -
[2019-01-01] MEDS: 0.9% Normal Saline 1,000 ML 250 ML IV (18:32)
[2019-01-01] MEDS: Nitroglycerin Oint 1 INCH PACKET TRANSDERM. (18:32)
[2019-01-01 18:40] LABS: Prothrombin Time (Protime)PT. 13.3 SECONDS (11.7-14.9)
[2019-01-01 18:41] LABS: Partial Thromboplast Time 27.7 Seconds (24.1-36.2)
[2019-01-01 18:44] LABS: Absolute Lymphocyte Count 5.87 X10^3/ul (0.83-4.51); Absolute Neutrophil Count 4.9 X10^3/uL (2.0-7.7); Basophil# 0.03 X10^3/uL; Basophil% 0.3 % (0-1); Eosinophil# 0.25 X10^3/uL; Eosinophils% 2.1 % (0-5); Hematocrit 42.5 % (37-47); Hemoglobin 15.2 g/dl (12.0-15.0); Lymphocyte # 5.87 X10^3/ul (4.0); Lymphocyte % 49.5 % (19-41); Mean Corp Hgb Conc 35.8 g/gl (32-36); Mean Corpuscular Hgb 32.8 pg (27.0-32.0); Mean Corpuscular Volume 91.8 fL (81-99); Mean Platelet Vol. 10.5 fl (6.2-12.0); Monocyte# 0.81 X10^3/uL; Monocyte% 6.8 % (0-10); Neutrophil # 4.87 X10^3/uL (2.7-7.7); Neutrophil % 41.1 % (47-70); Platelet Count 196 K/mm3 (150-450); RBC Distribution Width SD 43.1 fl (35.1-43.9); Red Blood Count 4.63 M/mm3 (4.2-5.4); White Blood Count 11.9 K/mm3 (4.4-11.0)
[2019-01-01 18:45] LABS: Differential Indicated SCAN CRITERIA MET; POSITIVE COUNT NO; POSITIVE DIFFERENTIAL YES; POSITIVE MORPHOLOGY NO
[2019-01-01] MEDS: Nitroglycerin Infusion 250 ML 3 MG CONT INF (19:11)
[2019-01-01] MEDS: TICAGRELOR 90 MG TABLET 180 MG PO (19:15)
[2019-01-01] MEDS: Heparin Injection (Vial) 5,000 UNIT/ML VIAL 6000 UNIT IV (19:15)
[2019-01-01] MEDS: HEPARIN/D5w 25,000 UNITS 25,000 UNITS/250 ML IV.SOLN. 12 UNITS IV (19:16)
--- NOTE | 2019-01-01 19:22 | ED.RN ---
REVIEWED ALL HEPARIN ORDERS WITH ANTHONY Hill PRIOR TO ADMINISTRATION.
[2019-01-01 19:43] LABS: Differential Comment SCANNED
[2019-01-01 19:45] LABS: Anion Gap 11 (5-15); BUN 13 mg/dL (7-18); BUN/Creat Ratio 13.8 RATIO (10-20); Calcium,Total 8.6 mg/dL (8.5-10.1); Chloride 105 mmol/L (98-107); Creatinine, Serum 0.94 mg/dL (0.55-1.02); EST Glomerular Filtration Rate 64 mL/min (>60); Est Glom Filt Rate - Afr Amer 77 mL/min (>60); Estimated Creatinine Clearance 55.84 ml/min; Glucose 143 mg/dL (74-106); Potassium 2.7 mmol/L (3.5-5.1); Sodium Level 139 mmol/L (136-145)
--- NOTE | 2019-01-01 19:46 | ED.RN ---
dr serrato made aware of k+2.7.
--- NOTE | 2019-01-01 19:53 | PCM.HP.STD ---
Problem List (1) Unstable angina Status: Acute (2) Hypokalemia Status: Acute (3) Hyperlipidemia Status: Chronic (4) Hypertension Status: Chronic History of Present Illness Date of Admission: 01/01/19 Chief Complaint: chest pain The patient is a 63 year old F with a significant history of hypertension; hyperlipidemia; diabetes mellitus; and tobacco abuse who presented to the emergency department with 30minutes to 1-hour history of continuous substernal excruciating dull chest pain that radiated to her throat. She reported that her chest pain started 2 days ago and it was episodic lasting for a short while. She attributed the initial chest pain to a probable acid reflux. However because on the day of presentation her chest pain would not go away she came to the emergency department. She was brought to emergency department by the squad. Her chest pain is aggravated with walking and ameliorated with sitting down. Patient took aspirin 325 mg at emergency department. Initial EKG was reported by paramedics as a probable STEMI. Emergency department doctor reported that cardiology investigation division lieutenant upon reviewing EKG thought that patient is not having a STEMI. Patient reported that before coming to the emergency department her chest pain decreased to about a 2; on a scale of 1 to 10. Initially she was given nitroglycerin paste at the ED. At the ED her EKG was notable for ST depressions in anterolateral leads. Emergency department doctor discussed the case with survey rodman and patient was started on loading dose of Brilinta; heparin drip and nitroglycerin drip was initiated because of hypertension. Past Medical History Past Medical History (Chronic Problems): Chronic Problems Hypertension (Chronic) Diabetes mellitus type 2 in obese (Chronic) Hyperlipidemia (Chronic) Allergies propoxyphene [From Darvon] Allergy (Verified 01/01/19 18:22) Unknown Home Medications: Ambulatory Orders Medication Instructions Recorded Metoprolol Tartrate 25 mg PO BID 04/08/18 Potassium Chloride [K-Tab ER] 20 meq PO DAILY 04/08/18 Metformin HCl 500 mg PO DAILY 04/09/18 Chlorthalidone 25 mg PO DAILY 01/01/19 Lovastatin 20 mg PO DAILY 01/01/19 Surgical History: - - Colectomy; intestinal surgery to untwist intestines. Lives: Spouse/ Significant Other Smoking Status: Current every day smoker Alcohol: Rare Drugs: None - *Family History Paternal History Items: - - Patient does not know. Maternal History Items: COPD, Stroke Review of Systems Constitutional: Denies: Chills, Fever, Weight Change HEENT: Denies: Head Aches, Sinus Congestion, Sinus Drainage Cardiovascular: Reports: Chest Pain. Denies: Palpitations Respiratory: Denies: Cough, Shortness of breath at rest, Sputum production Gastrointestinal: Denies: Abdominal Pain, Nausea, Vomiting Genitourinary: Denies: Dysuria Musculoskeletal: Denies: Joint Pain, Joint Tenderness Skin: Denies: Rash, Wounds Neurological: Denies: Numbness, Tingling, Focal weakness Psychiatric: Denies: Anxiety, Depression, Homicidal Ideations, Suicidal Ideations Hematologic/ Lymphatic: Denies: Easy Bruising, Easy Bleeding VTE Information - Inpt Only VTE Present on Admission: No VTE Mechan Device Prophylaxis: None VTE Pharm Prophylaxis ordered?: No Reason prophylaxis not ordered:: Treatment Not Indicated - Started on heparin drip for probable unstable angina. Patient Problems: Active and Suspected Problems ACS (acute coronary syndrome) (Acute) Hypokalemia (Acute) Unstable angina (Acute) - Physical Exam General: Alert, Oriented x3, Cooperative HEENT: Atraumatic, PERRLA, EOMI, Normocephalic Neck: Supple, No JVD, Negative Carotid Bruits Lungs: Clear to auscultation, Normal air movement Cardiovascular: Regular rate, No murmurs Abdomen: Bowel Sounds Present, Soft, Non Tender Extremities: No edema, Capillary Refill Less than 3 Seconds Skin: No rashes, No breakdown Musculoskeletal: No Tenderness to Palpation of Joints or Extremities Neurological: Cranial nerves II-XII grossly intact Psych/Mental Status: Normal Affect, Appropriate Vital Signs Temp Pulse Resp BP Pulse Ox 98.2 F 64 20 H 156/66 H 97 01/01/19 18:14 01/01/19 19:19 01/01/19 19:19 01/01/19 19:19 01/01/19 19:19 Oxygen Flow Rate (L/min) 2 Oxygen Delivery Method Nasal Cannula Weight: 83 kg Body Mass Index (BMI) 30.4 Finger Stick Blood Glucose 152 Laboratory Tests Past 24 Hrs 01/01/19 01/01/19 01/01/19 18:15 18:15 18:15 WBC 11.9 H RBC 4.63 Hgb 15.2 H Hct 42.5 MCV 91.8 MCH 32.8 H MCHC 35.8 RDW 13.0 RDW Differential 43.1 Plt Count 196 MPV 10.5 Immature Gran % (Auto) 0.200 Neut % (Auto) 41.1 L Lymph % (Auto) 49.5 H [place] % (Auto) 6.8 Eos % (Auto) 2.1 Baso % (Auto) 0.3 Absolute Neuts (auto) 4.9 Absolute Lymphs (auto) 5.87 H Total Counted Not Reportable Differential Comment SCANNED PT 13.3 INR 1.0 APTT 27.7 Sodium 139 Potassium 2.7 L* Chloride 105 Carbon Dioxide 23.0 Anion Gap 11 BUN 13 Creatinine 0.94 Estim Creat Clear Calc 55.84 Est GFR (MDRD) Af Amer 77 Est GFR (MDRD) Non-Af 64 BUN/Creatinine Ratio 13.8 Glucose 143 H Calcium 8.6 Troponin I 0.044 Assessment/Plan All Active Problems SBO (small bowel obstruction) (Acute) ACS (acute coronary syndrome) (Acute) Hypokalemia (Acute) Unstable angina (Acute) The patient is a 63 year old F with a significant history of hypertension; hyperlipidemia; diabetes mellitus; and tobacco abuse who presented to the emergency department with excruciating chest pain and ST depressions in anterolateral leads. Unstable angina Admit to a monitored bed on PCU Heart score of seven-point (highly suspicious; significant ST deviation; age 45-64; more or equal to 3 risk factors or history of atherosclerotic disease). VIKASH score for unstable angina/NSTEMI 3 points (more or equal to 3 CAD risk factors; severe angina (more or equal to 2 episodes in 24 hours); EKG ST changes more equal to 0.5 mm) CXR independently reviewed confirms no acute cardiopulmonary process. EKG independently reviewed confirms ST depression in anterolateral leads Patient took aspirin 325 mg at home. Continue on ASA 81 mg p.o. daily Initially nitroglycerin paste was placed at the ED. Although patient chest pain had abated because of high blood pressure cardiology recommended nitroglycerin drip that was initiated at the ED; continue nitroglycerin drip. Morphine as needed for pain We will check lipid panel and hemoglobin A1c. Will change home statin to high intensity statin. Received loading dose of Brilinta at emergency department. We will schedule patient on Brilinta. Heparin drip was started emergency department. Heparin drip continued. Serial cardiac enzymes Stat EKG as needed for chest pain N.p.o. after midnight for probable heart catheterization. Gentle IV hydration. We will consult cardiology. Hypokalemia On presentation her potassium was 2.7 Received potassium chloride 40 mEq at emergency department. Patient is on home potassium supplementation of 20 mEq daily. Etiology likely from chlorthalidone use. We will schedule patient on potassium chloride 40 mEq beginning now. Trend BMP Check magnesium. Hypertensive emergency On presentation her blood pressure was 188/73. This could be contributing to her chest pain. Patient started on nitroglycerin drip. Hold home chlorthalidone because of severe hypokalemia and because of preparing patient for probable cardiac catheterization where she needs some IV fluids in the setting of begin the patient n.p.o. Will begin patient on lisinopril especially as patient is diabetic and she has hypokalemia. Trend blood pressure and adjust blood pressure medications. Hyperlipidemia Lovastatin changed to high intensity statin. Tobacco abuse Counseled Patient declined nicotine patch. Diabetes mellitus On presentation her blood glucose was within goal. We will hold hold home metformin because of probable cath. Accu-Chek every 6 hours since patient will be kept n.p.o. for probable Heart cath Correction scale insulin ordered. Lymphocytic leukocytosis On presentation her white count was 11.9 with lymphocytic predominance. Etiology unclear. Likely from stress. Trend CBC. DVT prophylaxis Not indicated since patient will be started on heparin drip for unstable angina. Code Visit Inpatient E&M: 06235 Init Hosp L3
[2019-01-01] MEDS: Metoprolol Tartrate 5 MG/5 ML Vial IV (20:17)
[2019-01-01 21:27] LABS: Magnesium 1.8 mg/dL (1.6-2.6)
[2019-01-01 21:39] LABS: Hemoglobin A1c 6.4 % (4.2-6.3)
[2019-01-01] MEDS: Atorvastatin Calcium 80 MG Tablet PO (21:45)
[2019-01-01] MEDS: Lisinopril 10 MG Tablet PO (21:45)
[2019-01-01] MEDS: 0.9% Normal Saline 1,000 ML 75 ML IV (21:48)
[2019-01-01 23:28] LABS: Bacteria 0 SEEN /hpf (None Seen); Mucous, Urine 0 SEEN /hpf (<or=2+); Red Blood Cells-Urine 0 SEEN /hpf (0-5); White Blood Cells 0 SEEN /hpf (0-5)
[2019-01-01 23:45] LABS: Color, Urine Straw (Yellow); Glucose, Dipstick Normal (Normal); Ketone-Dipstick Negative (Negative); Leukocyte Esterase-Dipstick Negative /ul (Negative); Nitrite-Dipstick Negative (Negative); Occult Blood-Urine Negative /ul (Negative); Protein-Dipstick Negative (Negative); Urine Bilirubin Dipstick Negative (Negative); Urine Clarity Clear (Clear); Urine Urobilinogen Normal (Normal)
[2019-01-02] VITALS (37 sets, daily range): BP systolic 99–175; BP diastolic 41–82; PULSE 47–76; RESP 13–26; TEMP 36.1–37.2; O2SAT 92–99
[2019-01-02] LABS: Squamous Epithelial Cells - UA 0-5 SEEN /hpf (5-10)
[2019-01-02 00:46] LABS: Bedside Glucose 99 mg/dL (70-110)
[2019-01-02 01:01] LABS: Partial Thromboplast Time 98.8 Seconds (24.1-36.2)
[2019-01-02 05:16] LABS: Anion Gap 9 (5-15); BUN 12 mg/dL (7-18); BUN/Creat Ratio 16.7 RATIO (10-20); Calcium,Total 8.6 mg/dL (8.5-10.1); Chloride 112 mmol/L (98-107); Cholesterol 142 mg/dL (200); Creatinine, Serum 0.72 mg/dL (0.55-1.02); EST Glomerular Filtration Rate 88 mL/min (>60); Est Glom Filt Rate - Afr Amer 106 mL/min (>60); Glucose 129 mg/dL (74-106); High Density Lipoprotein 37 mg/dL; Potassium 3.7 mmol/L (3.5-5.1); Sodium Level 144 mmol/L (136-145); Triglycerides 198 mg/dL; Very Low Density Lipoprotein 40 mg/dL (5-40)
[2019-01-02] MEDS: Aspirin 81 MG TAB.CHEW PO (05:56)
[2019-01-02] MEDS: TICAGRELOR 90 MG TABLET PO ×2 (05:56→21:29)
[2019-01-02] MEDS: Lisinopril 10 MG Tablet PO ×2 (05:58→15:10)
--- NOTE | 2019-01-02 06:00 | EKG12_ITS ---
Test Reason : AM EKG Blood Pressure : / mmHG Vent. Rate : 054 BPM Atrial Rate : 054 BPM P-R Int : 130 ms QRS Dur : 080 ms QT Int : 478 ms P-R-T Axes : 070 069 046 degrees QTc Int : 453 ms Sinus bradycardia Nonspecific ST abnormality Abnormal ECG Confirmed by SANGEETHA ESCOBAR, ENRIQUE ([id number]), associate editor DOROTHY CONNORS ([id number]) on 01/05/2019 1:43:34 PM Referred By: GAMALIEL Confirmed By:ENRIQUE VIVAS MD
[2019-01-02 06:11] LABS: Bedside Glucose 126 mg/dL (70-110)
[2019-01-02] MEDS: CHLORHEXIDINE GLUC 2% CLOTH 1 EACH TOWELETTE TOPICAL (06:12)
[2019-01-02 06:29] LABS: International Normalized Ratio 1.1; Prothrombin Time (Protime)PT. 13.9 SECONDS (11.7-14.9)
[2019-01-02 06:30] LABS: Partial Thromboplast Time 45.5 Seconds (24.1-36.2)
[2019-01-02 06:34] LABS: Hematocrit 42.5 % (37-47); Hemoglobin 14.9 g/dl (12.0-15.0); Mean Corp Hgb Conc 35.1 g/gl (32-36); Mean Corpuscular Volume 91.4 fL (81-99); Mean Platelet Vol. 10.5 fl (6.2-12.0); Platelet Count 192 K/mm3 (150-450); RBC Distribution Width SD 42.7 fl (35.1-43.9); Red Blood Count 4.65 M/mm3 (4.2-5.4)
[2019-01-02 06:35] LABS: Scan Indicated on CBC? Y/N NO
--- NOTE | 2019-01-02 07:00 | PCM.PN.HOSP ---
Patient Problems: Active and Suspected Problems ACS (acute coronary syndrome) (Acute) Hypokalemia (Acute) Unstable angina (Acute) Subjective: Patient with no acute events since admission per self and per nursing report. Patient remains on nitroglycerin drip chest pain-free since initiation. Patient notes she is fatigued did not sleep well otherwise no acute complaints. Discussed patient with cardiology and plan cardiac catheterization today. Patient denies fevers, chills, nausea, emesis, abdominal pain, dyspnea or recurrent chest discomfort Objective: Physical Examination: General: awake, alert, oriented x 3 and cooperative, seated upright in the ICU bed in no apparent distress, denies any chest discomfort recurrence. Skin: normal color, turgor, no icterus, cyanosis. HEENT: AT/NC, EOMI, PERRLA, mildly dry MM. Lungs: CTA bilaterally, moderate effort, mild decrease BL bases, no rales, ronchi or wheezing. Heart: Regular rate and rhythm; no gallop, rub audible. Abdomen: soft, NTTP, ND, normal BS, no HSM. Extremities: no cyanosis, clubbing, or edema. Neurological: patient awake, alert, oriented x 3; cognitive function intact; pupils equally reactive to light and accomodation; cranial nerves II-XII grossly normal, moving all 4 extremities, no focal deficits, strength [place] global decrease secondary to acute presentation. Psychiatric: affect appears fatigued, no acute evidence of depressive or anxiety feelings. Vitals/I&O's: Vital Signs Temp Pulse Resp BP Pulse Ox 97.8 F 47 L 19 H 112/45 L 94 01/02/19 00:00 01/02/19 06:00 01/02/19 06:00 01/02/19 06:00 01/02/19 06:41 Oxygen Flow Rate (L/min) 2 Oxygen Delivery Method Room Air Weight: 173 lb 4.533 oz Body Mass Index (BMI) 28.8 Finger Stick Blood Glucose 152 Intake and Output for Last 24 Hours 12/31/18 01/01/19 01/02/19 23:59 23:59 23:59 Intake Total 645 / 645 Output Total 2200 / 2200 Balance -1555 / -1555 Laboratory Results 01/01/19 18:15: WBC 11.9 H, RBC 4.63, Hgb 15.2 H, Hct 42.5, MCV 91.8, MCH 32.8 H, MCHC 35.8, RDW 13.0, RDW Differential 43.1, Plt Count 196, MPV 10.5, Immature Gran % (Auto) 0.200, Neut % (Auto) 41.1 L, Lymph % (Auto) 49.5 H, [place] % (Auto) 6.8, Eos % (Auto) 2.1, Baso % (Auto) 0.3, Absolute Neuts (auto) 4.9, Absolute Lymphs (auto) 5.87 H, Total Counted Not Reportable, Differential Comment SCANNED 01/01/19 18:15: Sodium 139, Potassium 2.7 L*, Chloride 105, Carbon Dioxide 23.0, Anion Gap 11, BUN 13, Creatinine 0.94, Estim Creat Clear Calc 55.84, Est GFR (MDRD) Af Amer 77, Est GFR (MDRD) Non-Af 64, BUN/Creatinine Ratio 13.8, Glucose 143 H, Calcium 8.6, Troponin I 0.044 01/01/19 18:15: PT 13.3, INR 1.0, APTT 27.7 01/01/19 18:15: Hemoglobin A1c 6.4 H 01/01/19 18:15: Magnesium 1.8 01/01/19 21:45: Troponin I 0.716 H* 01/01/19 23:10: Urine Color Straw, Urine Clarity Clear, Urine pH 7.0, Ur Specific [place] 1.010, Urine Protein Negative, Urine Glucose (UA) Normal, Urine Ketones Negative, Urine Occult Blood Negative, Urine Nitrite Negative, Urine Bilirubin Negative, Urine Urobilinogen Normal, Ur Leukocyte Esterase Negative, Urine RBC 0 SEEN, Urine WBC 0 SEEN, Ur Squamous Epith Cells 0-5 SEEN, Urine Bacteria 0 SEEN, Urine Mucus 0 SEEN 01/02/19 00:20: Troponin I 0.978 H* 01/02/19 00:20: APTT 98.8 H* 01/02/19 00:40: POC Glucose 99 01/02/19 04:30: Sodium 144, Potassium 3.7, Chloride 112 H, Carbon Dioxide 23.0, Anion Gap 9, BUN 12, Creatinine 0.72, Estim Creat Clear Calc 72.90, Est GFR (MDRD) Af Amer 106, Est GFR (MDRD) Non-Af 88, BUN/Creatinine Ratio 16.7, Glucose 129 H, Calcium 8.6, Troponin I 1.290 H*, Triglycerides 198, Cholesterol 142, LDL Cholesterol 65, VLDL Cholesterol 40, HDL Cholesterol 37 L 01/02/19 06:00: WBC 10.0, RBC 4.65, Hgb 14.9, Hct 42.5, MCV 91.4, MCH 32.0, MCHC 35.1, RDW 13.0, RDW Differential 42.7, Plt Count 192, MPV 10.5 01/02/19 06:00: PT 13.9, INR 1.1, APTT 45.5 H 01/02/19 06:04: POC Glucose 126 H Current Medications Aspirin (Aspirin, Baby) 81 mg PO DAILY@0800 [facility] Last Admin: 01/02/19 05:56 Dose: 81 mg Atorvastatin Calcium (Lipitor) 80 mg PO QHS [facility] Last Admin: 01/01/19 21:45 Dose: 80 mg Chlorhexidine Gluconate () 1 each TOPICAL DAILY [facility] Last Admin: 01/02/19 06:12 Dose: 1 each Dextrose (D50w Syringe) 0 gm IV X1 PRN; Protocol PRN Reason: Hypoglycemia Glucagon () 1 mg IM .X1 PRN PRN Reason: Hypoglycemia Heparin Sodium (Porcine) (Heparin Na) 0 unit IV UD PRN; Protocol Heparin Sodium/Dextrose () 25,000 units in 250 mls @ 12 mls/hr IV .[id number] [facility]; Protocol Last Admin: 01/01/19 19:16 Dose: 12 mls/hr Nitroglycerin/Dextrose () 250 mls @ 3 mls/hr CONT INF .[id number] [facility] Last Admin: 01/01/19 19:11 Dose: 3 mls/hr Sodium Chloride () 1,000 mls @ 75 mls/hr IV .[id number] [facility] Stop: 01/02/19 10:03 Last Admin: 01/01/19 21:48 Dose: 75 mls/hr Sodium Chloride () 250 mls @ 15 mls/hr IV .[id number] PRN PRN Reason: SALINE FLUSH Insulin Human Lispro (Humalog Kwikpen (Bkc)) 0 unit SQ Q6 [facility]; Protocol Last Admin: 01/02/19 06:11 Dose: Not Given Lisinopril (Zestril) 10 mg PO DAILY [facility] Last Admin: 01/02/19 05:58 Dose: 10 mg Melatonin (Melatonin) 3 mg PO QHS PRN PRN PRN Reason: INSOMNIA Metoprolol Tartrate (Lopressor (Beta Melany)) 25 mg PO BID [facility] Last Admin: 01/02/19 05:57 Dose: Not Given Morphine Sulfate () 2 mg IV Q2H PRN PRN PRN Reason: SEVERE PAIN (6-10/10) Potassium Chloride (K-Dur) 40 meq PO BIDCM [facility] Last Admin: 01/01/19 21:39 Dose: 40 meq Sodium Chloride () 5 - 15 ml IV UD PRN PRN Reason: SALINE FLUSH Ticagrelor (Brilinta) 90 mg PO BID [facility] Last Admin: 01/02/19 05:56 Dose: 90 mg Medical Necessity - Tobacco Use Smoking Status: Current every day smoker Assessment/Plan All Active Problems SBO (small bowel obstruction) (Acute) ACS (acute coronary syndrome) (Acute) Hypokalemia (Acute) Unstable angina (Acute) The patient is a 63 y/o F w/ PMHx: Tobacco use, Diabetes mellitus type II, HTN, HLD who presents to the [facility] ED on 01/01/19 with history of approximately 30 minutes to 1 hour of continuous substernal, excruciating, dull chest discomfort which radiated to her throat with noted episodic chest discomfort occurring prior x 2 days. (1) Chest Pain w/ Acute NSTEMI: EKG in ED w/ questionable STEMI initially with subtle concave ST elevation inferiorly less than [address] depression most prominent in V2 with cardiology evaluation of EKG and felt not consistent with STEMI, CXR w/ no acute cardiopulmonary findings, enzyme trending w/ 0.716-->0.978-->1.290. Admitted to the ICU, administered brillinta load, maintained on heparin drip. Will maintain on a monitored bed, magnesium 1.8, Continue medical management w/ asa, BB, ACEI, statin. Cardiology consulted, plan for cardiac catheterization. ECHO ordered. Maintain NPO status. ASA, NG drip, morphine. (2) Hypokalemia: Admission K+ 2.7, supplementation given, repeat level in AM. (3) Diabetes mellitus type II: Hold oral home regimen, continue home insulin regimen, NPO current for catheterization, transition to ADA diet once appropriate, accu checks w/ ISS, HgbA1c 6.4%, nutrition consulted for education and teaching. (4) Hypertension: Continue home regimen including metoprolol, lisinopril, currently also on NG drip, PRN hydralazine. (5) Hyperlipidemia: Continue high dose statin regimen. AM FLP w/ TG 198, TChol 142, LDL 65, VLDL 40, HDL 37. (6) Tobacco Abuse: Encouraged cessation, inpatient consultation per RT, NR if desired. (7) DVT prophylaxis: SCDs, heparin drip. Code Visit Inpatient E&M: 55973 Subs Hosp L3
--- NOTE | 2019-01-02 07:44 | ECHOD_ITS ---
Reason For Study: CP Procedure This was a 2D Doppler, Color Flow transthoracic echocardiogram. The exam was of adequate technical quality. Exam performed portable in ICU/CCU. Left Ventricle Normal LV size. Apical false tendon noted. Left ventricular systolic function is normal. The estimated ejection fraction is 60 %. No evidence for diastolic dysfunction. No regional wall motion abnormalities noted. Right Ventricle Normal RV size. Normal systolic function. Atria Normal left atrium. Normal right atrium. No doppler evidence for ASD. Mitral Valve There is no mitral annular calcification. Normal mitral valve. Mild (1+) eccentric mitral valve insufficiency. Tricuspid Valve Normal tricuspid valve. Mild tricuspid valve insufficiency. Right ventricular systolic pressure estimated to be 18 mmHg. Aortic Valve Trisinus/trileaflet aortic valve. Mild focal aortic valve calcification. Pulmonic Valve The pulmonic valve is not well visualized. Great Vessels The aortic root is not well visualized. Pericardium/Pleural No pericardial effusion. MMode/2D Measurements & Calculations LVIDd: 4.2 cm IVSd: 1.1 cm LVOT diam: 2.0 cm LVIDs: 2.5 cm LVPWd: 1.2 cm LVOT area: 3.1 cm2 FS: 40.1 % LAV(MOD-bp): 46.0 ml LA A4 area: 17.0 cm2 RA A4 area: 11.2 cm2 LAV(MOD-bp) Indexed: 24.7 ml/m2 LAV(MOD-sp2): 47.0 ml LAV(MOD-sp4): 44.6 ml Time Measurements MV dec time: 0.32 sec Doppler Measurements & Calculations MV E max wero: 108.9 cm/sec Lat Peak E' Wero: 11.3 cm/sec Med Peak E' Wero: 11.7 cm/sec MV A max wero: 90.1 cm/sec E/E' lat: 9.6 E/E' med: 9.3 MV E/A: 1.2 MV V2 max: 139.6 cm/sec MV P1/2t max wero: 142.5 cm/sec Ao V2 max: 198.9 cm/sec MV max P.8 mmHg MV P1/2t: 75.3 msec Ao max P.8 mmHg MV V2 mean: 65.7 cm/sec MV dec slope: 554.7 cm/sec2 Ao V2 mean: 118.4 cm/sec MV mean P.2 mmHg MVA(P1/2t): 2.9 cm2 Ao mean P.6 mmHg MV V2 VTI: 40.9 cm Ao V2 VTI: 39.9 cm MVA(VTI): 2.2 cm2 GERALD(I,D): 2.3 cm2 GERALD(V,D): 2.1 cm2 LV V1 max: 132.3 cm/sec SV(LVOT): 90.0 ml PA V2 max: 123.3 cm/sec LV V1 max P.0 mmHg LV V1 mean P.9 mmHg LV V1 mean: 76.0 cm/sec LV V1 VTI: 29.0 cm TR max wero: 192.0 cm/sec TR max P.7 mmHg Interpretation Summary Left ventricular systolic function is normal. The estimated ejection fraction is 60 %. Apical false tendon noted. Mild (1+) eccentric mitral valve insufficiency. Mild tricuspid valve insufficiency. Mild focal aortic valve calcification. Right ventricular systolic pressure estimated to be 18 mmHg. No evidence for diastolic dysfunction. Ordering Physician: Harpal Lamb Performed By: Derek Gomez RCS
--- NOTE | 2019-01-02 08:29 | PCM.CONS.C ---
Problem List (1) NSTEMI (non-ST elevated myocardial infarction) Status: Acute (2) Hyperlipidemia Status: Chronic (3) Hypertension Status: Chronic (4) Diabetes mellitus type 2 in obese Status: Chronic Reason for Consult Date of Consultation: 01/02/19 History of Present Illness: The patient is a 63 year old white female with a past medical history of hyperlipidemia, hypertension, and diabetes mellitus who presents for evaluation of chest discomfort/indigestion/heartburn with subsequent abnormal cardiac enzymes and abnormal ECG changes concerning for an acute non-ST segment elevation PA. She noted she developed symptoms on Wednesday evening which she felt was related to heartburn/indigestion. She took an antacid and felt better. 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 However Wednesday evening/early Wednesday morning she had recurrent discomfort. Her discomfort was central chest related did not radiate, other than to her neck, with respect to her shoulders or upper extremities. She denied any associated nausea, emesis, or diaphoresis. There was no near syncope or syncope. She subsequently presented to the [facility] emergency department via EMS during the evening hours. There was concern of her initial EMS ECG as to whether or not she could be experiencing a STEMI. Her ECG was reviewed by Dr. Rivas of interventional cardiology. He did not concur with a STEMI event. The patient was subsequently treated medically with a combination of aspirin, antiplatelet therapy, and anticoagulant therapy. She was also placed on IV nitroglycerin and given beta-blockers. She was placed in the ICU for further evaluation and care. She had resolution of her symptoms. Her troponin I levels became positive. Her ECG was repeated on 3 separate occasions which demonstrated, over time, resolution of her initial ECG changes towards baseline. She denies any past cardiovascular history. She denies any orthopnea, PND, or peripheral pitting edema. There has been no history of near syncope or syncope. She states she has never gone through any cardiovascular testing to the best of her recollection. She does admit to her other echo history as noted above. She also admits to being a positive cigarette smoker. [] Past Medical History Allergies/Adverse Reactions: Allergies propoxyphene [From Darvon] Allergy (Verified 01/01/19 18:22) Unknown Home Medications: Ambulatory Orders Medication Instructions Recorded Metoprolol Tartrate 25 mg PO BID 04/08/18 Potassium Chloride [K-Tab ER] 20 meq PO DAILY 04/08/18 Metformin HCl 500 mg PO DAILY 04/09/18 Chlorthalidone 25 mg PO DAILY 01/01/19 Lovastatin 20 mg PO DAILY 01/01/19 Past Medical History (Chronic Problems): Chronic Problems Hypertension (Chronic) Diabetes mellitus type 2 in obese (Chronic) Hyperlipidemia (Chronic) Surgical History: - - Colectomy; intestinal surgery to untwist intestines. - *Family History Paternal History Items: - - Patient does not know. Maternal History Items: COPD, Stroke Lives: Spouse/ Significant Other Smoking Status: Current every day smoker Alcohol: Rare Drugs: None Review of Systems - Review of Systems General: Denies: Fever, Night Sweats, Fatigue Cardiovascular: Reports: Chest Discomfort at Rest. Denies: Shortness of Breath, Orthopnea, PND, Peripheral Edema, Palpitations, Lightheadedness, Dizziness, Near Syncope, Syncope Respiratory: Denies: Cough, Sputum Production, Hemoptysis Gastrointestinal: Denies: Hematemesis, Hematochezia, Melena Genitourinary: Denies: Dysuria, Hematuria Skin: Denies: Rash Subjectve: This is a 63-year-old white female who appears to be resting comfortably at the moment in no acute distress. Objective: Vital Signs Temp Pulse Resp BP Pulse Ox 97.8 F 59 L 17 136/56 H 94 01/02/19 00:00 01/02/19 08:00 01/02/19 08:00 01/02/19 08:00 01/02/19 08:00 Oxygen Flow Rate (L/min) 2 Oxygen Delivery Method Room Air Weight: 173 lb 8.061 oz Body Mass Index (BMI) 28.8 Finger Stick Blood Glucose 152 Intake and Output for Last 24 Hours 12/31/18 01/01/19 01/02/19 23:59 23:59 23:59 Intake Total 645 / 645 Output Total 2200 / 2200 Balance -1555 / -1555 General: Awake, Alert, Oriented x 3, Cooperative, No Acute Distress HEENT: Atraumatic, Normocephalic, PERRL, EOMI, Sclera Non Icteric Oral: Moist Mucosa Neck: Supple, Good ROM, No JVD Lungs: Clear to auscultation Cardiovascular: Regular Rhythm, Irregular Rhythm, Normal S1, Normal S2 Murmur Murmur: Grade 2/6, Soft, Mid Systolic, LLSB Vascular: No Carotid Bruits Abdomen: Bowel Sounds Present, Soft, Non Tender Extremities: No Cyanosis, No Clubbing, No edema Neurological: No Focal Motor or Sensory Deficit Psych/Mental Status: Appropriate 01/01/19 18:15: WBC 11.9 H, RBC 4.63, Hgb 15.2 H, Hct 42.5, MCV 91.8, MCH 32.8 H, MCHC 35.8, RDW 13.0, RDW Differential 43.1, Plt Count 196, MPV 10.5, Immature Gran % (Auto) 0.200, Neut % (Auto) 41.1 L, Lymph % (Auto) 49.5 H, [place] % (Auto) 6.8, Eos % (Auto) 2.1, Baso % (Auto) 0.3, Absolute Neuts (auto) 4.9, Total Counted Not Reportable 01/01/19 18:15: Sodium 139, Potassium 2.7 L*, Chloride 105, Carbon Dioxide 23.0, Anion Gap 11, BUN 13, Creatinine 0.94, Est GFR (MDRD) Af Amer 77, Est GFR (MDRD) Non-Af 64, BUN/Creatinine Ratio 13.8, Glucose 143 H, Calcium 8.6, Troponin I 0.044 01/01/19 18:15: PT 13.3, INR 1.0, APTT 27.7 01/01/19 18:15: Hemoglobin A1c 6.4 H 01/01/19 18:15: Magnesium 1.8 01/01/19 21:45: Troponin I 0.716 H* 01/01/19 23:10: Urine Color Straw, Urine Clarity Clear, Urine pH 7.0, Ur Specific [place] 1.010, Urine Protein Negative, Urine Glucose (UA) Normal, Urine Ketones Negative, Urine Occult Blood Negative, Urine Nitrite Negative, Urine Bilirubin Negative, Urine Urobilinogen Normal, Ur Leukocyte Esterase Negative, Urine RBC 0 SEEN, Urine WBC 0 SEEN 01/02/19 00:20: Troponin I 0.978 H* 01/02/19 00:20: APTT 98.8 H* 01/02/19 04:30: Sodium 144, Potassium 3.7, Chloride 112 H, Carbon Dioxide 23.0, Anion Gap 9, BUN 12, Creatinine 0.72, Est GFR (MDRD) Af Amer 106, Est GFR (MDRD) Non-Af 88, BUN/Creatinine Ratio 16.7, Glucose 129 H, Calcium 8.6, Troponin I 1.290 H*, Triglycerides 198, Cholesterol 142, LDL Cholesterol 65, VLDL Cholesterol 40, HDL Cholesterol 37 L 01/02/19 06:00: WBC 10.0, RBC 4.65, Hgb 14.9, Hct 42.5, MCV 91.4, MCH 32.0, MCHC 35.1, RDW 13.0, RDW Differential 42.7, Plt Count 192, MPV 10.5 01/02/19 06:00: PT 13.9, INR 1.1, APTT 45.5 H Rhythm: Sinus rhythm EKG: EMS ECG: Sinus rhythm; ST/T wave change-consideration for myocardial ischemia; [facility] ECG from 01/01/2019 at 1815 hrs. with sinus rhythm with ST segment abnormality with consideration for myocardial ischemia; [facility] ECG from 01/01/2019 at 2211 hrs. with sinus rhythm with continued ST segment abnormality with consideration for myocardial ischemia-less prominent than the previous ECG; [facility] ECG from 01-02-19 at 0549 hrs. demonstrates sinus rhythm with subtle ST segment abnormality - less prominent than the previous ECG ECHO: Interpretation Summary Left ventricular systolic function is normal. The estimated ejection fraction is 60 %. Apical false tendon noted. Mild (1+) eccentric mitral valve insufficiency. Mild tricuspid valve insufficiency. Mild focal aortic valve calcification. Right ventricular systolic pressure estimated to be 18 mmHg. No evidence for diastolic dysfunction. CXR: Preliminary evaluation: No acute cardiopulmonary disease process appreciated: Please see official report Assessment/Plan 1. Acute non-ST segment elevation PA At the present time the patient appears to be resting comfortably. She will continue to be monitored with telemetry monitoring, enzyme follow-up as deemed appropriate, and ECG follow-up as deemed appropriate. An echocardiogram has been requested to evaluate her left ventricular wall motion systolic function. However she has been recommended for further evaluation with diagnostic cardiac catheterization. The procedure and risks have been discussed with her. She was agreeable to this approach. 2. Hyperlipidemia She will need to continue risk factor evaluation and medication adjustment as deemed appropriate. 3. Hypertension Her blood pressures will be followed. Her medications will be adjusted as needed. 4. Diabetes mellitus She will continue under the evaluation care of her primary care physician. 5. Tobacco use She has been counseled on the need to stop tobacco use. Comment: The above was discussed and reviewed with the patient and the [facility] hospital staff and the [facility] ICU staff. This note was generated with [employer] dictation software. It may contain incorrect words, spelling, and punctuation that were not noted in checking the note before signing.
--- NOTE | 2019-01-02 08:34 | CON.PCM_ITS ---
Problem List (1) NSTEMI (non-ST elevated myocardial infarction) Status: Acute (2) Hyperlipidemia Status: Chronic (3) Hypertension Status: Chronic (4) Diabetes mellitus type 2 in obese Status: Chronic Reason for Consult Date of Consultation: 01/02/19 History of Present Illness: The patient is a 63 year old white female with a past medical history of hyperlipidemia, hypertension, and diabetes mellitus who presents for evaluation of chest discomfort/indigestion/heartburn with subsequent abnormal cardiac enzymes and abnormal ECG changes concerning for an acute non-ST segment elevation AL. She noted she developed symptoms on Wednesday evening which she felt was related to heartburn/indigestion. She took an antacid and felt better. 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 However Wednesday evening/early Wednesday morning she had recurrent discomfort. Her discomfort was central chest related did not radiate, other than to her neck, with respect to her shoulders or upper extremities. She denied any associated nausea, emesis, or diaphoresis. There was no near syncope or syncope. She subsequently presented to the [facility] emergency department via EMS during the evening hours. There was concern of her initial EMS ECG as to whether or not she could be experiencing a STEMI. Her ECG was reviewed by Dr. Rivas of interventional cardiology. He did not concur with a STEMI event. The patient was subsequently treated medically with a combination of aspirin, antiplatelet therapy, and anticoagulant therapy. She was also placed on IV nitroglycerin and given beta-blockers. She was placed in the ICU for further evaluation and care. She had resolution of her symptoms. Her troponin I levels became positive. Her ECG was repeated on 3 separate occasions which demonstrated, over time, resolution of her initial ECG changes towards baseline. She denies any past cardiovascular history. She denies any orthopnea, PND, or peripheral pitting edema. There has been no history of near syncope or syncope. She states she has never gone through any cardiovascular testing to the best of her recollection. She does admit to her other echo history as noted above. She also admits to being a positive cigarette smoker. [] Past Medical History Allergies/Adverse Reactions: Allergies propoxyphene [From Darvon] Allergy (Verified 01/01/19 18:22) Unknown Home Medications: Ambulatory Orders Medication Instructions Recorded Metoprolol Tartrate 25 mg PO BID 04/08/18 Potassium Chloride [K-Tab ER] 20 meq PO DAILY 04/08/18 Metformin HCl 500 mg PO DAILY 04/09/18 Chlorthalidone 25 mg PO DAILY 01/01/19 Lovastatin 20 mg PO DAILY 01/01/19 Past Medical History (Chronic Problems): Chronic Problems Hypertension (Chronic) Diabetes mellitus type 2 in obese (Chronic) Hyperlipidemia (Chronic) Surgical History: - - Colectomy; intestinal surgery to untwist intestines. - *Family History Paternal History Items: - - Patient does not know. Maternal History Items: COPD, Stroke Lives: Spouse/ Significant Other Smoking Status: Current every day smoker Alcohol: Rare Drugs: None Review of Systems - Review of Systems General: Denies: Fever, Night Sweats, Fatigue Cardiovascular: Reports: Chest Discomfort at Rest. Denies: Shortness of Breath, Orthopnea, PND, Peripheral Edema, Palpitations, Lightheadedness, Dizziness, Near Syncope, Syncope Respiratory: Denies: Cough, Sputum Production, Hemoptysis Gastrointestinal: Denies: Hematemesis, Hematochezia, Melena Genitourinary: Denies: Dysuria, Hematuria Skin: Denies: Rash Subjectve: This is a 63-year-old white female who appears to be resting comfortably at the moment in no acute distress. Objective: Vital Signs Temp Pulse Resp BP Pulse Ox 97.8 F 59 L 17 136/56 H 94 01/02/19 00:00 01/02/19 08:00 01/02/19 08:00 01/02/19 08:00 01/02/19 08:00 Oxygen Flow Rate (L/min) 2 Oxygen Delivery Method Room Air Weight: 173 lb 8.061 oz Body Mass Index (BMI) 28.8 Finger Stick Blood Glucose 152 Intake and Output for Last 24 Hours 12/31/18 01/01/19 01/02/19 23:59 23:59 23:59 Intake Total 645 / 645 Output Total 2200 / 2200 Balance -1555 / -1555 General: Awake, Alert, Oriented x 3, Cooperative, No Acute Distress HEENT: Atraumatic, Normocephalic, PERRL, EOMI, Sclera Non Icteric Oral: Moist Mucosa Neck: Supple, Good ROM, No JVD Lungs: Clear to auscultation Cardiovascular: Regular Rhythm, Irregular Rhythm, Normal S1, Normal S2 Murmur Murmur: Grade 2/6, Soft, Mid Systolic, LLSB Vascular: No Carotid Bruits Abdomen: Bowel Sounds Present, Soft, Non Tender Extremities: No Cyanosis, No Clubbing, No edema Neurological: No Focal Motor or Sensory Deficit Psych/Mental Status: Appropriate 01/01/19 18:15: WBC 11.9 H, RBC 4.63, Hgb 15.2 H, Hct 42.5, MCV 91.8, MCH 32.8 H , MCHC 35.8, RDW 13.0, RDW Differential 43.1, Plt Count 196, MPV 10.5, Immature Gran % (Auto) 0.200, Neut % (Auto) 41.1 L, Lymph % (Auto) 49.5 H, [place] % (Auto) 6.8, Eos % (Auto) 2.1, Baso % (Auto) 0.3, Absolute Neuts (auto) 4.9, Total Counted Not Reportable 01/01/19 18:15: Sodium 139, Potassium 2.7 L*, Chloride 105, Carbon Dioxide 23.0, Anion Gap 11, BUN 13, Creatinine 0.94, Est GFR (MDRD) Af Amer 77, Est GFR (MDRD) Non-Af 64, BUN/Creatinine Ratio 13.8, Glucose 143 H, Calcium 8.6, Troponin I 0.044 01/01/19 18:15: PT 13.3, INR 1.0, APTT 27.7 01/01/19 18:15: Hemoglobin A1c 6.4 H 01/01/19 18:15: Magnesium 1.8 01/01/19 21:45: Troponin I 0.716 H* 01/01/19 23:10: Urine Color Straw, Urine Clarity Clear, Urine pH 7.0, Ur Specific [place] 1.010, Urine Protein Negative, Urine Glucose (UA) Normal, Urine Ketones Negative, Urine Occult Blood Negative, Urine Nitrite Negative, Urine Bilirubin Negative, Urine Urobilinogen Normal, Ur Leukocyte Esterase Negative, Urine RBC 0 SEEN, Urine WBC 0 SEEN 01/02/19 00:20: Troponin I 0.978 H* 01/02/19 00:20: APTT 98.8 H* 01/02/19 04:30: Sodium 144, Potassium 3.7, Chloride 112 H, Carbon Dioxide 23.0, Anion Gap 9, BUN 12, Creatinine 0.72, Est GFR (MDRD) Af Amer 106, Est GFR (MDRD) Non-Af 88, BUN/Creatinine Ratio 16.7, Glucose 129 H, Calcium 8.6, Troponin I 1.290 H*, Triglycerides 198, Cholesterol 142, LDL Cholesterol 65, VLDL Cholesterol 40, HDL Cholesterol 37 L 01/02/19 06:00: WBC 10.0, RBC 4.65, Hgb 14.9, Hct 42.5, MCV 91.4, MCH 32.0, MCHC 35.1, RDW 13.0, RDW Differential 42.7, Plt Count 192, MPV 10.5 01/02/19 06:00: PT 13.9, INR 1.1, APTT 45.5 H Rhythm: Sinus rhythm EKG: EMS ECG: Sinus rhythm; ST/T wave change-consideration for myocardial ischemia; [facility] ECG from 01/01/2019 at 1815 hrs. with sinus rhythm with ST segment abnormality with consideration for myocardial ischemia; [facility] ECG from 01/01/2019 at 2211 hrs. with sinus rhythm with continued ST segment abnormality with consideration for myocardial ischemia-less prominent than the previous ECG; [facility] ECG from 01-02-19 at 0549 hrs. demonstrates sinus rhythm with subtle ST segment abnormality - less prominent than the previous ECG ECHO: Interpretation Summary Left ventricular systolic function is normal. The estimated ejection fraction is 60 %. Apical false tendon noted. Mild (1+) eccentric mitral valve insufficiency. Mild tricuspid valve insufficiency. Mild focal aortic valve calcification. Right ventricular systolic pressure estimated to be 18 mmHg. No evidence for diastolic dysfunction. CXR: Preliminary evaluation: No acute cardiopulmonary disease process appreciated: Please see official report Assessment/Plan 1. Acute non-ST segment elevation AL At the present time the patient appears to be resting comfortably. She will continue to be monitored with telemetry monitoring, enzyme follow-up as deemed appropriate, and ECG follow-up as deemed appropriate. An echocardiogram has been requested to evaluate her left ventricular wall motion systolic function. However she has been recommended for further evaluation with diagnostic cardiac catheterization. The procedure and risks have been discussed with her. She was agreeable to this approach. 2. Hyperlipidemia She will need to continue risk factor evaluation and medication adjustment as deemed appropriate. 3. Hypertension Her blood pressures will be followed. Her medications will be adjusted as needed. 4. Diabetes mellitus She will continue under the evaluation care of her primary care physician. 5. Tobacco use She has been counseled on the need to stop tobacco use. Comment: The above was discussed and reviewed with the patient and the [facility] hospital staff and the [facility] ICU staff. This note was generated with [employer] dictation software. It may contain incorrect words, spelling, and punctuation that were not noted in checking the note before signing.
--- NOTE | 2019-01-02 08:50 | CASEMGMT ---
RN CM Note: Attempted to see pt for RN CM assessment. 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 Lisbet SALDIVARN RN ACM
--- NOTE | 2019-01-02 10:13 | CL.I_ITS ---
Patient Name: TON CAIN Study Date: 01/02/2019 Performing: Dixon Pritchett MD Ht: 64.96 inches 165 cm : 1955 Wt: 174.17 lbs 79 kg Age: 63 Gender: female BSA: 1.86 PROCEDURE(S) PERFORMED [id number] RENAL ANGIO WITH HEART CATH [id number] W OR WO PTCA, SINGLE CORONARY ARTERY CLINICAL PROFILE AND CO-MORBIDITIES Indications: ACS <= 24 hrs, Other, Other, Other, ACS > 24 hrs, New Onset Angina <= 2 months, Susp ected CAD Heart Failure: None Stress/Imaging Stress/Image Study Performed: No Stress/Image Study Performed: No Angina Classification Anginal Classification w/in 2 Weeks: CCS III CAD Presentations: Non-STEMI. Unstable angina. Non-STEMI. Symptom onset Date/Time: 12/31/2018 Time Not Available Comorbidities/Risk Factors: Current/Recent Smoker (< 1year) Hypertension Dyslipidemia CONCLUSIONS Successful PTCA/MIKE proximal RCA with a 4.0 x 16 Promus Synergy, post dilated with a 4.0 x 12 NC Ball oon at 16 nadira; 85%-->0%, no dissection. RECOMMENDATIONS Highly recommend quitting all tobacco products Follow up with primary grout machine tender Risk factor modification ASA Indefinitley Plavix for at least 12 months Routine post interventional care Refer for Outpatient Cardiac Rehab Manual sheath removal per protocol Follow up with Dr. Lamb Medical management of mid RCA. CTA of descending aorta to evaluate non obstructive plaquing. Manual sheath removal. DESCRIPTION OF PROCEDURE The patient arrived to the procedure lab. The risks and benefits of the procedure as well as a full d escription of our services here and current unavailability of surgical backup were fully explained to the patient and/or their significant other prior to the catheterization. The Timeout was completed, verifying the correct patient and procedure. The patient's procedural site was prepped and draped in the usual fashion. Local anesthetic was given subcutaneously to right groin region with Lidocaine 2% Using a modified Seldinger technique,arterial access was obtained via the right femoral artery, a 4Fr sheath was inserted Left Coronary Artery selective angiography was performed in multiple views using a 4 Fr. JL5 catheter. Right Coronary Artery selective angiography was then performed in multiple vie ws using a 4 Fr. 3DRC catheter. Left Ventriculography was performed in MARTINEZ projection using a 4 Fr. P igtail catheter.The images were reviewed and options discussed. A decision was then made to proceed with an Intervention, IVUS or other adjunct procedure. Arterial sheath was exchanged for a 6 Fr 55cm Sheath. HS 2 Guide catheter was inserted and engage d into the RCA. BMW Guide wire was advanced to the RCA. 2.00X12 EMERGE Balloon catheter was inserted. Balloon catheter was advanced across lesion in the right coronary, proximal. PTCA balloon inflated a t 10 atms for 10 secs. 4.00X16 SYNERGY Drug Eluting stent was inserted. Drug Eluting stent was advanc ed across the lesion in the right coronary, proximal. 4.00X12 NC EMERGE Balloon catheter was inserted post stent. Angiogram performed post stent deployment. Arterial sheath was exchanged for a 6 Fr 11CM Sheath. The arterial sheath was pulled and manual compression applied until hemostasis is achieved . INTERVENTION INFORMATION LESION SITE: RCA (Proximal) Lesion Complexity: Non-High/Non-C, lesion at bifurcation: No, thrombus present: No, lesion length: 16 mm, culprit lesion: Yes Pre Stenosis: 85 % Pre intervention VIKASH flow: 3 PROCEDURE: Drug Eluting Stent with pre and post dilatation Post Stenosis: 0 % Post intervention VIKASH flow: 3 Lesion Devices: [place] .014 BMW Torreon Straight 190cm Medtronic 6 Fr HSII 100cm Guide Catheter Han Sci EMERGE MR 2.00x12 BALLOON Han Sci Synergy MR MIKE 4.00x16 Han Sci NC EMERGE MR 4.00x12 BALLOON COMPLICATIONS No Complications PROCEDURE MEDICATIONS Versed 1 mg IV Oxygen: 2 L/min via nasal cannula Heparin 6000 unit(s) IV 01/02/2019 09:45:07 Nitro 200 mcg IC 01/02/2019 09:52:32 SUMMARY OF HEMODYNAMIC DATA Time AIR REST ECG 09:20:18 AO 124/60 (84) SA 09:29:58 LV 127/3, 13 09:36:19 LV 131/1, 10 09:36:26 LV 115/9, 13 09:37:51 LVp 111/9, 17 09:37:56 AOp 113/53 (76) 09:38:01 Signed By Dixon Pritchett MD On 01/02/2019 10:12:58 Dixon Pritchett MD
--- NOTE | 2019-01-02 10:29 | CL.D_ITS ---
Patient Name: TON CAIN Study Date: 01/02/2019 Performing: Harpal Lamb MD Ht: 64.96 inches 165 cm : 1955 Wt: 174.17 lbs 79 kg Age: 63 Gender: female BSA: 1.86 PROCEDURE(S) PERFORMED [id number]/COR/LV [id number] RENAL ANGIO WITH HEART CATH [id number] W OR WO PTCA, SINGLE CORONARY ARTERY CLINICAL PROFILE AND INDICATIONS Indications: ACS <= 24 hrs, Other, Other, Other, ACS > 24 hrs, New Onset Angina <= 2 months, Susp ected CAD Heart Failure: None Stress/Imaging Stress/Image Study Performed: No Stress/Image Study Performed: No Angina Classification Anginal Classification w/in 2 Weeks: CCS III CAD Presentations: Non-STEMI. Unstable angina. Non-STEMI. Symptom onset Date/Time: 12/31/2018 Time Not Available Comorbidities/Risk Factors: Current/Recent Smoker (< 1year) Hypertension Dyslipidemia CONCLUSIONS Normal Left Ventricular End Diastolic Pressure Normal LV size, wall motion,and systolic function LVEF: by LV gram 55 % [place] Multivessel CAD Left to Right Collateral Flow Abdominal Aorta: Bilateral Renal Arteries: Patent; Distal Abdominal Aorta: Severe Athersclerotic Plaq ue Disease RECOMMENDATIONS ASA Indefinitely Medical therapy Referred for immediate PCI PVS consultation for PAD of the Aorta DESCRIPTION OF PROCEDURE The patient arrived to the procedure lab. The risks and benefits of the procedure as well as a full d escription of our services here and current unavailability of surgical backup were fully explained to the patient and/or their significant other prior to the catheterization. The Timeout was completed, verifying the correct patient and procedure. The patient's procedural site was prepped and draped in the usual fashion. Local anesthetic was given subcutaneously to right groin region with Lidocaine 2%. Using a modified Seldinger technique, arterial access was obtained via the right femoral artery, a 4 Fr sheath was inserted Left Coronary Artery selective angiography was performed in multiple views us ing a 4 Fr. JL5 catheter. Right Coronary Artery selective angiography was then performed in multiple views using a 4 Fr. 3DRC catheter. Left Ventriculography was performed in MARTINEZ projection using a 4 Fr . Pigtail catheter.The arterial sheath was pulled and manual compression applied until hemostasis is achieved. CORONARY ANGIOGRAPHY DOMINANCE: Right Dominant LEFT HEART ASSESSMENT Left Ventricular Ejection Fraction: by LV Gram 55 % Normal LV wall motion Normal Left Ventricular End Diastolic Pressure LVEDP: 10 mmHg Abdominal Aorta: Bilateral Renal Arteries: Patent; Distal Abdominal Aorta: Severe Atherosclerotic Johnson que Disease LEFT MAIN: Angiographically normal LEFT ANTERIOR DESCENDING ARTERY: Mild luminal irregularities CIRCUMFLEX ARTERY: Mild luminal irregularities MID CIRC: Diffuse: Eccentric: 10 - 25 % Stenosis RIGHT CORONARY ARTERY: Mild luminal irregularities PROX RCA: 90 % Stenosis COLLATERAL FLOW: Collateral flow from Left to Right VALVE FINDINGS: Normal Aortic Valve function Normal Mitral Valve function AORTIC ROOT: Angiographically normal COMPLICATIONS No Complications PROCEDURE MEDICATIONS Versed 1 mg IV Oxygen: 2 L/min via nasal cannula Heparin 6000 unit(s) IV 01/02/2019 09:45:07 Nitro 200 mcg IC 01/02/2019 09:52:32 SUMMARY OF HEMODYNAMIC DATA Time AIR REST ECG 09:20:18 AO 124/60 (84) SA 09:29:58 LV 127/3, 13 09:36:19 LV 131/1, 10 09:36:26 LV 115/9, 13 09:37:51 LVp 111/9, 17 09:37:56 AOp 113/53 (76) 09:38:01 Signed By Harpal Lamb MD On 01/02/2019 10:28:10 Harpal Lamb MD
--- NOTE | 2019-01-02 10:47 | EKG12_ITS ---
Test Reason : CHEST PAIN Blood Pressure : / mmHG Vent. Rate : 056 BPM Atrial Rate : 056 BPM P-R Int : 138 ms QRS Dur : 084 ms QT Int : 468 ms P-R-T Axes : 075 067 018 degrees QTc Int : 451 ms Sinus bradycardia Nonspecific ST abnormality Abnormal ECG Confirmed by SANGEETHA ESCOBAR, ENRIQUE ([id number]), art editor DOROTHY CONNORS ([id number]) on 01/05/2019 1:43:46 PM Referred By: KENDRICK Confirmed By:ENRIQUE VIVAS MD
[2019-01-02] MEDS: 0.9% Normal Saline 1,000 ML 150 ML IV (11:31)
--- NOTE | 2019-01-02 11:40 | PCM.CONS.GEN ---
Problem List (1) Peripheral artery disease Status: Acute Reason for Consult Date of Consultation: 01/02/19 Reason for Consultation: Descending aortic non-obstructing stenosis History of Present Illness: The patient is a 63 year old F who presented on 01/01 with chest pain radiating to her neck, elevated cardiac enzymes and ECG changes concerning for a non-ST segment elevation myocardial infarction. Patient was evaluated by Dr. Lamb and under went a cardiac cath this morning, 01/02. Findings included normal LV end-diastolic pressure, normal LV size, wall motion and systolic function, EF 55%, [place] multivessel coronary disease with proximal RCA 85% occlusion with successful PTCA/MIKE, left to right collateral flow, abdominal aorta with bilateral renal arteries patent, distal abdominal aorta with severe atherosclerotic plaque disease. Patient denies previous myocardial infarctions, stroke, blood clots. She notes past history of tobacco use. She noted smoking 1 ppd since age 16. Patient notes she stopped smoking as of Wednesday. Patient denies previous known knowledge of AAA. She denies having previous duplex of the abdominal aorta. Patient notes previous history of multiple abdominal surgeries which include bowel rupture in 1985 which she required resection of bowel, appendectomy, tubal ligation and more recently exploratory laparotomy for SBO in March of 2018. Previous to this hospitalization, she denies any cardiac concerns. Patient is currently being maintained on ASA, Heparin and Brilinta. She will be placed on Plavix for 12 months along with aspirin as an outpatient. Patient also has a history of HTN, hypercholesterolemia, diabetes. She denies previous vascular surgeries. Past Medical History Past Medical History (Chronic Problems): Chronic Problems Hypertension (Chronic) Diabetes mellitus type 2 in obese (Chronic) Hyperlipidemia (Chronic) Allergies propoxyphene [From Darvon] Allergy (Verified 01/01/19 18:22) Unknown Home Medications: Ambulatory Orders Medication Instructions Recorded Metoprolol Tartrate 25 mg PO BID 04/08/18 Potassium Chloride [K-Tab ER] 20 meq PO DAILY 04/08/18 Metformin HCl 500 mg PO DAILY 04/09/18 Chlorthalidone 25 mg PO DAILY 01/01/19 Lovastatin 20 mg PO DAILY 01/01/19 Surgical History: - - Colectomy; intestinal surgery to untwist intestines, appendectomy, tubal ligation Psychiatric History: No pertinent psych hx 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 Maternal History Items: COPD, Stroke Review of Systems Constitutional: Denies: Chills, Fever, Weight Change HEENT: Denies: Head Aches, Sinus Congestion, Sinus Drainage Cardiovascular: Denies: Chest Pain, Palpitations Respiratory: Denies: Cough, Shortness of breath at rest, Sputum production Gastrointestinal: Denies: Abdominal Pain, Nausea, Vomiting Genitourinary: Denies: Dysuria Musculoskeletal: Denies: Joint Pain, Joint Tenderness Skin: Denies: Rash, Wounds Neurological: Denies: Numbness, Tingling, Focal weakness Psychiatric: Denies: Anxiety, Depression, Homicidal Ideations, Suicidal Ideations Hematologic/ Lymphatic: Reports: Easy Bruising, Easy Bleeding. Denies: Hx of blood clot, Hx of blood transfusion Patient Problems: Active and Suspected Problems ACS (acute coronary syndrome) (Acute) Hypokalemia (Acute) Unstable angina (Acute) NSTEMI (non-ST elevated myocardial infarction) (Acute) Peripheral artery disease (Acute) - Physical Exam General: Alert, Oriented x3, Cooperative HEENT: Atraumatic, PERRLA, EOMI, Normocephalic Neck: Supple, No JVD, Negative Carotid Bruits Lungs: Clear to auscultation, Normal air movement Cardiovascular: Regular rate, No murmurs Abdomen: Bowel Sounds Present, Soft, Non-Distended, Tender - slight tenderness to deep palpation supraumbilical, - - Negative pulsatile mass. Negative aortic abdominal bruit Extremities: No edema, Capillary Refill Less than 3 Seconds, - - Pulses, bilateral: Radial- 3+, brachial- 2+, carotid 2+, femoral- 2+ left groin, dressing/sand bag intact, popliteal- 2+, pedal 2+. Bilateral lower extremities warm. Skin: No rashes, No breakdown, - - Micropuncture of the right groin site. Musculoskeletal: No Tenderness to Palpation of Joints or Extremities Neurological: Neuro grossly intact Psych/Mental Status: Normal Affect, Appropriate Vital Signs Temp Pulse Resp BP Pulse Ox 98.0 F 58 L 16 150/56 H 94 01/02/19 11:30 01/02/19 11:30 01/02/19 11:30 01/02/19 11:30 01/02/19 11:30 Oxygen Flow Rate (L/min) 2 Oxygen Delivery Method Room Air Weight: 173 lb 8.061 oz Body Mass Index (BMI) 28.8 Finger Stick Blood Glucose 152 Intake and Output for Last 24 Hours 12/31/18 01/01/19 01/02/19 23:59 23:59 23:59 Intake Total 645 / 645 Output Total 2200 / 2200 Balance -1555 / -1555 Laboratory Tests Past 24 Hrs 01/01/19 01/01/19 01/01/19 18:15 18:15 18:15 WBC 11.9 H RBC 4.63 Hgb 15.2 H Hct 42.5 MCV 91.8 MCH 32.8 H MCHC 35.8 RDW 13.0 RDW Differential 43.1 Plt Count 196 MPV 10.5 Immature Gran % (Auto) 0.200 Neut % (Auto) 41.1 L Lymph % (Auto) 49.5 H Hill % (Auto) 6.8 Eos % (Auto) 2.1 Baso % (Auto) 0.3 Absolute Neuts (auto) 4.9 Absolute Lymphs (auto) 5.87 H Total Counted Not Reportable Differential Comment SCANNED PT 13.3 INR 1.0 APTT 27.7 Sodium 139 Potassium 2.7 L* Chloride 105 Carbon Dioxide 23.0 Anion Gap 11 BUN 13 Creatinine 0.94 Estim Creat Clear Calc 55.84 Est GFR (MDRD) Af Amer 77 Est GFR (MDRD) Non-Af 64 BUN/Creatinine Ratio 13.8 Glucose 143 H Hemoglobin A1c Calcium 8.6 Magnesium Troponin I 0.044 Triglycerides Cholesterol LDL Cholesterol VLDL Cholesterol HDL Cholesterol Urine Color Urine Clarity Urine pH Ur Specific [place] Urine Protein Urine Glucose (UA) Urine Ketones Urine Occult Blood Urine Nitrite Urine Bilirubin Urine Urobilinogen Ur Leukocyte Esterase Urine RBC Urine WBC Ur Squamous Epith Cells Urine Bacteria Urine Mucus 01/01/19 01/01/19 01/01/19 18:15 18:15 21:45 WBC RBC Hgb Hct MCV MCH MCHC RDW RDW Differential Plt Count MPV Immature Gran % (Auto) Neut % (Auto) Lymph % (Auto) Hill % (Auto) Eos % (Auto) Baso % (Auto) Absolute Neuts (auto) Absolute Lymphs (auto) Total Counted Differential Comment PT INR APTT Sodium Potassium Chloride Carbon Dioxide Anion Gap BUN Creatinine Estim Creat Clear Calc Est GFR (MDRD) Af Amer Est GFR (MDRD) Non-Af BUN/Creatinine Ratio Glucose Hemoglobin A1c 6.4 H Calcium Magnesium 1.8 Troponin I 0.716 H* Triglycerides Cholesterol LDL Cholesterol VLDL Cholesterol HDL Cholesterol Urine Color Urine Clarity Urine pH Ur Specific [place] Urine Protein Urine Glucose (UA) Urine Ketones Urine Occult Blood Urine Nitrite Urine Bilirubin Urine Urobilinogen Ur Leukocyte Esterase Urine RBC Urine WBC Ur Squamous Epith Cells Urine Bacteria Urine Mucus 01/01/19 01/02/19 01/02/19 23:10 00:20 00:20 WBC RBC Hgb Hct MCV MCH MCHC RDW RDW Differential Plt Count MPV Immature Gran % (Auto) Neut % (Auto) Lymph % (Auto) Hill % (Auto) Eos % (Auto) Baso % (Auto) Absolute Neuts (auto) Absolute Lymphs (auto) Total Counted Differential Comment PT INR APTT 98.8 H* Sodium Potassium Chloride Carbon Dioxide Anion Gap BUN Creatinine Estim Creat Clear Calc Est GFR (MDRD) Af Amer Est GFR (MDRD) Non-Af BUN/Creatinine Ratio Glucose Hemoglobin A1c Calcium Magnesium Troponin I 0.978 H* Triglycerides Cholesterol LDL Cholesterol VLDL Cholesterol HDL Cholesterol Urine Color Straw Urine Clarity Clear Urine pH 7.0 Ur Specific [place] 1.010 Urine Protein Negative Urine Glucose (UA) Normal Urine Ketones Negative Urine Occult Blood Negative Urine Nitrite Negative Urine Bilirubin Negative Urine Urobilinogen Normal Ur Leukocyte Esterase Negative Urine RBC 0 SEEN Urine WBC 0 SEEN Ur Squamous Epith Cells 0-5 SEEN Urine Bacteria 0 SEEN Urine Mucus 0 SEEN 01/02/19 01/02/19 01/02/19 04:30 06:00 06:00 WBC 10.0 RBC 4.65 Hgb 14.9 Hct 42.5 MCV 91.4 MCH 32.0 MCHC 35.1 RDW 13.0 RDW Differential 42.7 Plt Count 192 MPV 10.5 Immature Gran % (Auto) Neut % (Auto) Lymph % (Auto) Hill % (Auto) Eos % (Auto) Baso % (Auto) Absolute Neuts (auto) Absolute Lymphs (auto) Total Counted Differential Comment PT 13.9 INR 1.1 APTT 45.5 H Sodium 144 Potassium 3.7 Chloride 112 H Carbon Dioxide 23.0 Anion Gap 9 BUN 12 Creatinine 0.72 Estim Creat Clear Calc 72.90 Est GFR (MDRD) Af Amer 106 Est GFR (MDRD) Non-Af 88 BUN/Creatinine Ratio 16.7 Glucose 129 H Hemoglobin A1c Calcium 8.6 Magnesium Troponin I 1.290 H* Triglycerides 198 Cholesterol 142 LDL Cholesterol 65 VLDL Cholesterol 40 HDL Cholesterol 37 L Urine Color Urine Clarity Urine pH Ur Specific [place] Urine Protein Urine Glucose (UA) Urine Ketones Urine Occult Blood Urine Nitrite Urine Bilirubin Urine Urobilinogen Ur Leukocyte Esterase Urine RBC Urine WBC Ur Squamous Epith Cells Urine Bacteria Urine Mucus POC Glucose 01/02/19 01/02/19 06:04 00:40 POC Glucose 126 H 99 Assessment/Plan All Active Problems SBO (small bowel obstruction) (Acute) ACS (acute coronary syndrome) (Acute) Hypokalemia (Acute) Unstable angina (Acute) NSTEMI (non-ST elevated myocardial infarction) (Acute) Peripheral artery disease (Acute) I have been consulted in conjunction with Dr. Earl. Impression: Arthrosclerotic disease. S/p cardiac cath with RCA stent placement. Significant non-obstructing stenosis of the descending abdominal aorta. Plan: I have discussed this patient with Dr. Earl. Recommend PVR testing to evaluate lower extremity sclerotic disease. Results will be relayed to the patient. Patient will need to follow-up with Dr. Earl as an outpatient 1 week from discharge. Patient has had the opportunity to ask and have questions answered. Patient verbally understands and agrees with the plan. Thank you for allowing us to participate in this patient's care. Code Visit Office Visits / Consults: [id number] IP Consult L3
[2019-01-02 12:01] LABS: Bedside Glucose 115 mg/dL (70-110)
[2019-01-02 12:05] LABS: ACT Activated Clotting Time 164 sec (74-137)
--- NOTE | 2019-01-02 13:38 | CRPHASE1 ---
Patient Communication PHII Cardiac Rehab Discussed with Patient:: Yes Guide to Cardiac Rehab Given to Patient:: Yes Cardiac Rehab Facility Choice List Given to Patient:: Yes Choice Program [facility] CR PHII:: Communication Given to CR, Refer to [facility] Polygraph Examiner:: Dixon Pritchett Phase II Cardiac Rehab:: Yes Sessions:: 36 sessions - 3 days/wk, 12 weeks Risk Factors/Lifestyle Smoking Status: Current every day smoker Hx Hypertension: Yes Hx Diabetes Mellitus Type 1: No Hx Diabetes Mellitus Type 2: Yes Hx Metabolic Disorders: Yes Hx Dyslipidemia: Yes Hx Obesity: No Height: 5 ft 5 in - BMI 28.9 Post-Menopausal: Yes Stress: Home/Family Risk Factor for Sedentary Lifestyle: Moderate Risk Laboratory Values: Cardiac Rehab Phase I Labs Hemoglobin A1c 6.4 % (4.2-6.3) H 01/01/19 18:15 Triglycerides 198 mg/dL (-199) 01/02/19 04:30 Cholesterol 142 mg/dL (200) 01/02/19 04:30 LDL Cholesterol 65 mg/dL (0-130) 01/02/19 04:30 HDL Cholesterol 37 mg/dL (40-) L 01/02/19 04:30 Phase I Education Given On:: [place], Nutrition, Antiplatelet medication, Diabetes - Type II Issues Affecting Care:: None Knowledge of Condition:: Yes Learning Preferences: Verbal, Written - NO INSURANCE / NOT INTERESTED Hospital Course Pain Description: Pressure Medical/Surgical History CA:: No CAD:: No Diabetes:: Yes Diabetes Type I:: No Diabetes Type II:: Yes Hypertension:: Yes Dyslipidemia:: Yes Discharge/Home/Social Eval Discharge Disposition: Home Cardiac Rehabilitation Info Cardiac Rehabilitation Program Information: Cardiac Rehabilitation is important for patients like you who are recovering from a heart problem. Cardiac rehabilitation programs are recognized as integral to the continued care of the patient with coronary heart disease. The cardiac rehabilitation program is designed to optimize a patient's physical, psychological, and social functioning. Health human services care specialist work in cardiac rehabilitation programs and assist you with getting the treatments you need to get stronger and healthier - like exercise, healthy eating habits, and medications. Cardiac rehabilitation has been show to help people with heart problems live longer and have better life enjoyment than people who do not go to cardiac rehabilitation. Please contact the Cardiac Rehabilitation Program at [facility] at in two weeks if you have not heard from them.
--- NOTE | 2019-01-02 13:41 | CRPHASE1_ITS ---
Patient Communication PHII Cardiac Rehab Discussed with Patient:: Yes Guide to Cardiac Rehab Given to Patient:: Yes Cardiac Rehab Facility Choice List Given to Patient:: Yes Choice Program [facility] CR PHII:: Communication Given to CR, Refer to [facility] Patient Office Rep:: Dixon Pritchett Phase II Cardiac Rehab:: Yes Sessions:: 36 sessions - 3 days/wk, 12 weeks Risk Factors/Lifestyle Smoking Status: Current every day smoker Hx Hypertension: Yes Hx Diabetes Mellitus Type 1: No Hx Diabetes Mellitus Type 2: Yes Hx Metabolic Disorders: Yes Hx Dyslipidemia: Yes Hx Obesity: No Height: 5 ft 5 in - BMI 28.9 Post-Menopausal: Yes Stress: Home/Family Risk Factor for Sedentary Lifestyle: Moderate Risk Laboratory Values: Cardiac Rehab Phase I Labs Hemoglobin A1c 6.4 % (4.2-6.3) H 01/01/19 18:15 Triglycerides 198 mg/dL (-199) 01/02/19 04:30 Cholesterol 142 mg/dL (200) 01/02/19 04:30 LDL Cholesterol 65 mg/dL (0-130) 01/02/19 04:30 HDL Cholesterol 37 mg/dL (40-) L 01/02/19 04:30 Phase I Education Given On:: [place], Nutrition, Antiplatelet medication, Diabetes - Type II Issues Affecting Care:: None Knowledge of Condition:: Yes Learning Preferences: Verbal, Written - NO INSURANCE / NOT INTERESTED Hospital Course Pain Description: Pressure Medical/Surgical History [place]:: No CAD:: No Diabetes:: Yes Diabetes Type I:: No Diabetes Type II:: Yes Hypertension:: Yes Dyslipidemia:: Yes Discharge/Home/Social Eval Discharge Disposition: Home Cardiac Rehabilitation Info Cardiac Rehabilitation Program Information: Cardiac Rehabilitation is important for patients like you who are recovering from a heart problem. Cardiac rehabilitation programs are recognized as integral to the continued care of the patient with coronary heart disease. The cardiac rehabilitation program is designed to optimize a patient's physical, psychological, and social functioning. Health health care marketing specialist work in cardiac rehabilitation programs and assist you with getting the treatments you need to get stronger and healthier - like exercise, healthy eating habits, and medications. Cardiac rehabilitation has been show to help people with heart problems live longer and have better life enjoyment than people who do not go to cardiac rehabilitation. Please contact the Cardiac Rehabilitation Program at [facility] at in two weeks if you have not heard from them.
--- NOTE | 2019-01-02 13:43 | CRPH1.INST_ITS ---
General Education CAD and cardiac anatomy and function:: Patient communicates acknowledgment - NO INSURANCE / NOT INTERESTED IN CR Explanation of diagnoses and procedures:: Patient communicates acknowledgment Sign/Symptoms of SC:: Patient communicates acknowledgment Antiplatelet therapy: Patient communicates acknowledgment Proper use of NTG-SL: Patient communicates acknowledgment, Not instructed Emergency procedures and activation of EMS: Patient communicates acknowledgment Compliance of all prescribed medications: Patient communicates acknowledgment Smoking Patient Nicotine/Smoking Risk Factors Are:: Cigarettes Recommendations Include:: Smoking cessation strategies/Smoking packet, Second- hand smoke recommendation, Participation in a smoking cessation program, Previous smoker; encourage continued cessation Nicotine/Smoking Response Code:: Patient communicates acknowledgment Dyslipidemia Patient Dyslipidemia Risk Factors Are:: Total Cholesterol, Triglycerides, HDL, LDL Recommendations Include:: Lipid profile provided, Reviewed NCEP/ATP guidelines, Therapeutic Lifestyle Change dietary guidelines Dyslipidemia Response Code:: Patient communicates acknowledgment Overweight/Obesity Patient Overweight/Obesity Risk Factors Are:: Overweight = 26-29 Recommendations Include:: Weight loss of 5-10%, Reduced calorie diet, Exercise 5-7 times/week Overweight/Obesity:: Patient communicates acknowledgment Hypertension Recommendations Include:: BP <130/80 if diabetic, DASH dietary guidelines, Decrease/maintain normal body weight, Moderation of ETOH Hypertension:: Patient communicates acknowledgment Heart Disease Heart Disease Response Code:: Patient communicates acknowledgment Diabetes Patient Diabetes Risk Factors Are:: Elevated blood sugars Recommendations Include:: Maintain fasting blood sugars 70-110 md/dL, Maintain HgbA1c of 6% or less, Monitor blood sugar as prescribed, Diabetic dietary guidelines, Decrease/maintain body weight Diabetes:: Patient communicates acknowledgment Metabolic Syndrome Patient Metabolic Syndrome Risk Factors Are [3 of 5]:: Waist circumference > 35 [female] or 40 [male], High triglyceride >150, Hypertension, Low HDL <40 [male] or < 50 [female] Recommendations Include:: Reinforce compliance to risk factor modifications, Patient is diabetic, Encouraged follow-up with Primary Care Physician Metabolic Syndrome Response Code:: Patient communicates acknowledgment Sedentary Patient Sedentary Risk Factors Are:: Lack of regular exercise Recommendations Include:: Aerobic exercise 5-7 times/week for 20-30 minutes continuously, Benefits of regular exercise, Discussed home walking program, Monitored Outpatient Cardiac Rehab Sedentary Response Code:: Patient communicates acknowledgment Stress Recommendations Include:: Identification of stressors, and assessment of coping skills, Stress management techniques Stress Response Code:: Patient communicates acknowledgment
--- NOTE | 2019-01-02 14:17 | ART_ITS ---
Reason For Study: PVD Left Segmental Pressures Left brachial= 136mmHg. Left dorsalis pedis artery = 85mmHg. Left posterior tibial artery = 92mmHg. Left calf = 84mmHg. Left thigh = 96mmHg. The left dorsalis pedis waveforms are biphasic. The left posterior tibial artery waveforms are biphasic. Right Segmental Pressures Right brachial= 130mmHg. Right dorsalis pedis artery = 85mmHg. Right posterior tibial artery = 93mmHg. Right calf = 117mmHg. Right thigh = 94mmHg. The right dorsalis pedis waveforms are biphasic. The right posterior tibial artery waveforms are biphasic. Indices The right digital-brachial index is .43. The right ankle brachial index by the posterior tibial artery is .68. The right ankle brachial index by the dorsalis pedis is .63. The left digital- brachial index is .48. The left ankle brachial index by the dorsalis pedis is .63. The left ankle brachial index by the posterior tibial artery is .68. Interpretation Summary Aorto-iliac inflow disease bilaterally in the range of vascular claudication. Digital indices abnormal bilaterally approaching critical ischemia. Ordering Physician: Sumi Moody PA-C Performed By: KI RODRIGUEZ Ba
[2019-01-02] MEDS: Acetaminophen 325 MG Tablet 650 MG PO (15:15)
--- NOTE | 2019-01-02 15:43 | CASEMGMT ---
RHODA CM Note: attempted to see pt x 2. Pt was asleep, now having testing. Lisbet PLATT RN [facility]
--- NOTE | 2019-01-02 16:42 | NURSING ---
Patient ambulated to RR and to chair. Dressing remains soft, c/d/i.
[2019-01-02 17:16] LABS: Bedside Glucose 148 mg/dL (70-110)
--- NOTE | 2019-01-02 19:29 | PN.CARD_ITS ---
Subjectve: The patient is status post diagnostic cardiac catheterization. She appears to be resting comfortably at this time. Objective: Vital Signs Temp Pulse Resp BP Pulse Ox 98.5 F 55 L 14 99/71 95 01/02/19 16:00 01/02/19 18:00 01/02/19 18:00 01/02/19 18:00 01/02/19 18:00 Oxygen Flow Rate (L/min) 2 Oxygen Delivery Method Room Air Weight: 173 lb 8.061 oz Body Mass Index (BMI) 28.8 Finger Stick Blood Glucose 152 Intake and Output for Last 24 Hours 12/31/18 01/01/19 01/02/19 23:59 23:59 23:59 Intake Total 2033 Output Total 2500 / 2500 Balance -466 / -466 General: Awake, Alert, Oriented x 3, Cooperative, No Acute Distress HEENT: Atraumatic, Normocephalic, PERRL, EOMI, Sclera Non Icteric Oral: Moist Mucosa Neck: Supple, Good ROM, No JVD Lungs: Clear to auscultation Cardiovascular: Regular Rhythm, Normal S1, Normal S2 Vascular: Normal Femoral Pulses Abdomen: Bowel Sounds Present, Soft, Non Tender Extremities: No edema Neurological: No Focal Motor or Sensory Deficit Psych/Mental Status: Appropriate 01/01/19 18:15: Total Counted Not Reportable 01/01/19 18:15: Sodium 139, Potassium 2.7 L*, Chloride 105, Carbon Dioxide 23.0, Anion Gap 11, BUN 13, Creatinine 0.94, Est GFR (MDRD) Af Amer 77, Est GFR (MDRD) Non-Af 64, BUN/Creatinine Ratio 13.8, Glucose 143 H, Calcium 8.6, Troponin I 0.044 01/01/19 18:15: Hemoglobin A1c 6.4 H 01/01/19 18:15: Magnesium 1.8 01/01/19 21:45: Troponin I 0.716 H* 01/01/19 23:10: Urine Color Straw, Urine Clarity Clear, Urine pH 7.0, Ur Specific Hudson 1.010, Urine Protein Negative, Urine Glucose (UA) Normal, Urine Ketones Negative, Urine Occult Blood Negative, Urine Nitrite Negative, Urine Bilirubin Negative, Urine Urobilinogen Normal, Ur Leukocyte Esterase Negative, Urine RBC 0 SEEN, Urine WBC 0 SEEN 01/02/19 00:20: Troponin I 0.978 H* 01/02/19 00:20: APTT 98.8 H* 01/02/19 04:30: Sodium 144, Potassium 3.7, Chloride 112 H, Carbon Dioxide 23.0, Anion Gap 9, BUN 12, Creatinine 0.72, Est GFR (MDRD) Af Amer 106, Est GFR (MDRD) Non-Af 88, BUN/Creatinine Ratio 16.7, Glucose 129 H, Calcium 8.6, Troponin I 1.290 H*, Triglycerides 198, Cholesterol 142, LDL Cholesterol 65, VLDL Cholesterol 40, HDL Cholesterol 37 L 01/02/19 06:00: WBC 10.0, RBC 4.65, Hgb 14.9, Hct 42.5, MCV 91.4, MCH 32.0, MCHC 35.1, RDW 13.0, RDW Differential 42.7, Plt Count 192, MPV 10.5 01/02/19 06:00: PT 13.9, INR 1.1, APTT 45.5 H Rhythm: Sinus rhythm Medical Necessity - Tobacco Use Smoking Status: Current every day smoker Assessment/Plan 1. Acute non-ST segment elevation [place] At the present time the patient appears to be resting comfortably. She will continue to be monitored with telemetry monitoring, enzyme follow-up as deemed appropriate, and ECG follow-up as deemed appropriate. An echocardiogram has been requested to evaluate her left ventricular wall motion systolic function. However she has been recommended for further evaluation with diagnostic cardiac catheterization. The procedure and risks have been discussed with her. She was agreeable to this approach. 2. Hyperlipidemia She will need to continue risk factor evaluation and medication adjustment as deemed appropriate. 3. Hypertension Her blood pressures will be followed. Her medications will be adjusted as needed. 4. Diabetes mellitus She will continue under the evaluation care of her primary care physician. 5. Tobacco use She has been counseled on the need to stop tobacco use. Overall, at the present time, the patient appears to be resting comfortably. She will continue to be monitored. She will continue medical therapy with adjustment as deemed appropriate. Comment: The above was discussed and reviewed with the patient and the [facility] ICU staff. This note was generated with [employer] software. It may contain incorrect words, spelling, and punctuation that were not noted in checking the note before signing.
[2019-01-02] MEDS: Atorvastatin Calcium 80 MG Tablet PO (21:29)
[2019-01-02] MEDS: Metoprolol Tartrate 25 MG Tablet PO (21:29)
[2019-01-02] MEDS: MELATONIN 3 MG TABLET PO (21:29)
[2019-01-03] VITALS (13 sets, daily range): BP systolic 104–126; BP diastolic 30–62; PULSE 53–69; RESP 16–20; TEMP 36.4–37; O2SAT 92–95
[2019-01-03 05:05] LABS: Hematocrit 42.4 % (37-47); Hemoglobin 14.6 g/dl (12.0-15.0); Mean Corp Hgb Conc 34.4 g/gl (32-36); Mean Corpuscular Hgb 31.8 pg (27.0-32.0); Mean Corpuscular Volume 92.4 fL (81-99); Mean Platelet Vol. 10.2 fl (6.2-12.0); Platelet Count 204 K/mm3 (150-450); Red Blood Count 4.59 M/mm3 (4.2-5.4); White Blood Count 9.6 K/mm3 (4.4-11.0)
[2019-01-03 05:08] LABS: Scan Indicated on CBC? Y/N NO
[2019-01-03 05:30] LABS: Anion Gap 8 (5-15); BUN 15 mg/dL (7-18); BUN/Creat Ratio 20.6 RATIO (10-20); Calcium,Total 8.9 mg/dL (8.5-10.1); Chloride 114 mmol/L (98-107); Cholesterol 119 mg/dL (200); Creatinine, Serum 0.73 mg/dL (0.55-1.02); EST Glomerular Filtration Rate 86 mL/min (>60); Est Glom Filt Rate - Afr Amer 104 mL/min (>60); Glucose 121 mg/dL (74-106); High Density Lipoprotein 35 mg/dL; Potassium 4.5 mmol/L (3.5-5.1); Sodium Level 144 mmol/L (136-145); Triglycerides 148 mg/dL; Very Low Density Lipoprotein 30 mg/dL (5-40)
[2019-01-03 07:06] LABS: Bedside Glucose 144 mg/dL (70-110)
--- NOTE | 2019-01-03 08:33 | DCINST_ITS ---
- Discharge Diagnoses Current Active Problems: Current Active and Chronic Problems (Last Updated 01/03/19 @ 08:13 by Sandra Che) (1) Chest Pain w/ Acute NSTEMI w/ Proximal RCA disease s/p PCI (2) Hypokalemia (3) Peripheral artery disease (4) Diabetes mellitus type II (4) Hypertension (5) Hyperlipidemia (6) Tobacco Abuse You will use the following diet at home:: Other - Cardiac/ADA 1800 diet. Your food should be the consistency of: Regular Your liquids should be the consistency of: Regular/Thin Discharge Activity: - - See activity parameters in addition instructions. Weight Bearing Status: Weight bearing as tolerated Call your doctor if your incision/area has: Continuous Slow Oozing, Sudden Increased Bleeding, Increased Pain/ Swelling, Increased Redness, Foul Smelling Discharge, Swelling at the incision site Call your doctor if you observe: Fever of 101 or Higher, Inability to urinate, Inability to have a bowel movement, Shortness of breath, Dizziness, Fainting spells, Chest pain, Uncontrolled pain Instructions: Symptoms of a Heart Attack, Recognizing a Heart Attack or Angina, Understanding Coronary Artery Disease (CAD), What Is High Blood Pressure?, Discharge Instructions for Heart Attack, Long-Term Complications of Diabetes, Oral Medications for Type 2 Diabetes, Healthy Meals for Diabetes, Tips for Quitting Smoking (Cardiovascular), Why Do You Smoke?, Planning to Quit Smoking, Getting Support for Quitting Smoking, Diabetes and Peripheral Arterial Disease (PAD), Smoking and Peripheral Arterial Disease (PAD), High Cholesterol and Peripheral Arterial Disease (PAD), High Blood Pressure and Peripheral Arterial Disease (PAD) Additional Instructions: CARDIOLOGY PCI CATH INSTRUCTIONS. Lifting: Must be less than 5 lbs for 5 days, No restrictions after 14 days. Shower: Yes. Climb stairs: Yes. Bathing in tub or submerged water: No, until cleared per Cardiology at follow-up (call office if any concerns [phone] and may leave voicemail if after hours). Walkin minutes 3 times daily, increase as tolerated. Driving: Resume in 7 days. Sexual activity: Resume in 14 days. Regular activity: Resume 14 days. ADDITIONAL: (1) Given the addition/adjustments to your blood pressure regimen, chlorthalidone was held; however, if your blood pressure >140/90, this will need to be restarted or the lisinopril will need to be adjusted. Please contact the cardiology office to ascertain which regimen change would be preferred if this is the case. (2) RESUME METOFORMIN WHEN ALLOWED per cardiac catheterization lab direction. Allergies/Adverse Reactions: Allergies propoxyphene [From Darvon] Allergy (Verified 01/01/19 18:22) Unknown Medications to take at Discharge Potassium Chloride [K-Tab ER] 20 meq PO DAILY 04/08/18 Metformin HCl 500 mg PO DAILY 04/09/18 Aspirin [Aspirin, Baby] 81 mg PO DAILY@0800 #30 tab.chew 01/03/19 Atorvastatin Calcium [Lipitor] 80 mg PO QHS #30 tablet 01/03/19 Lisinopril [Zestril] 10 mg PO DAILY #30 tablet 01/03/19 Metoprolol Tartrate [Lopressor (beta bill)] 25 mg PO BID #60 tablet 01/03/19 Ticagrelor [Brilinta] 90 mg PO BID #60 tablet 01/03/19 The following prescriptions were given: Aspirin [Aspirin, Baby] 81 mg PO DAILY@0800 #30 tab.chew Atorvastatin Calcium [Lipitor] 80 mg PO QHS #30 tablet Lisinopril [Zestril] 10 mg PO DAILY #30 tablet Metoprolol Tartrate [Lopressor (beta bill)] 25 mg PO BID #60 tablet Ticagrelor [Brilinta] 90 mg PO BID #60 tablet Orders to be completed after discharge: Phase II, Outpatient Cardiac Rehab Location: None Selected Primary Care Physician: Kaleb Ferraro [Primary Care Provider] - Please follow up with your Primary Care Physician in: Follow-up in 3-5 days to review admission. Test Results: Test results from this visit will be discussed in further detail at your follow- up appointment, if applicable. Please Follow Up With: Harpal Lamb MD When: Cardiology office will call you to arrange appointment. Please Follow Up With: Frandy Earl MD When: Follow-up 1 week. Proposed Discharge Date: 01/03/19
--- NOTE | 2019-01-03 08:41 | PCM.DC.SUM ---
Discharge Date and Diagnosis - Problem List Patient Problems: Active and Suspected Problems (Last Updated 01/03/19 @ 08:13 by Sandra Che) ACS (acute coronary syndrome) (Acute) Hypokalemia (Acute) Unstable angina (Acute) NSTEMI (non-ST elevated myocardial infarction) (Acute) Peripheral artery disease (Acute) Date of Admission: 01/01/19 Date of Discharge: 01/03/19 - Primary Discharge Diagnosis Active and Suspected Problems (Last Updated 01/03/19 @ 08:13 by Sandra Che) (1) Chest Pain w/ Acute NSTEMI w/ Proximal RCA disease s/p PCI (2) Hypokalemia (3) Peripheral artery disease (4) Diabetes mellitus type II (4) Hypertension (5) Hyperlipidemia (6) Tobacco Abuse - Secondary Discharge Diagnosis Chronic Problems (Last Updated 01/03/19 @ 08:13 by Sandra Che) S/P coronary artery stent placement (Chronic ~01/02/19) PTAC/MIKE to the prox RCA Atherosclerotic heart disease of [place] coronary artery without angina pectoris (Chronic) Hypertension (Chronic) Diabetes mellitus type 2 in obese (Chronic) Hyperlipidemia (Chronic) Hospital Course and Treatment Dr. Lamb Cardiology Dr. Earl Vascular Surgery Operations: None, - - exploratory laparotomy with relief of obstruction and adhesiolysis Procedures: 2-D Echocardiogram, Cardiac catheterization, EKG Summary of Care Provided: The patient is a 63 y/o F w/ PMHx: Tobacco use, Diabetes mellitus type II, HTN, HLD who presented to the [facility] ED on 01/01/19 with history of approximately 30 minutes to 1 hour of continuous substernal, excruciating, dull chest discomfort which radiated to her throat with noted episodic chest discomfort occurring prior x 2 days. EKG in ED w/ questionable STEMI initially with subtle concave ST elevation inferiorly less than [address] depression most prominent in V2 with cardiology evaluation of EKG and felt not consistent with STEMI, CXR w/ no acute cardiopulmonary findings, enzyme trending w/ 0.716-->0.978-->1.290. Admitted to the ICU, administered brillinta load, maintained on heparin drip as well as NG drip. Magnesium 1.8, Continued medical management w/ asa, BB, ACEI, statin w/ FLP w/ TG 198, TChol 142, LDL 65, VLDL 40, HDL 37.. ECHO w/ normal LV systolic function, EF 60%, mild MVI, mild TVI, mild focal AV calcification, RVSP 18 mmHg, no evidence for diastolic dysfunction. During admission held oral home regimen w/ noted HgbA1c 6.4%, nutrition consulted for education and teaching. 01/02/19 Cardiac catheterization with normal LV end-diastolic pressure, normal LV size, wall motion and systolic function, EF 55%, [place] multivessel coronary disease with proximal RCA 85% occlusion with successful PTCA/MIKE, left to right collateral flow, abdominal aorta with bilateral renal arteries patent, distal abdominal aorta with severe atherosclerotic plaque disease with recommendations for tobacco cessation, indefinite aspirin therapy, Plavix x12 months, referral to outpatient cardiac rehab. Given notable peripheral arterial disease, consulted Dr. Earl with PVR request and planned future CTA abdomen with run off outpatient w/ planned follow-up outpatient in his office in 1 week. Encouraged cessation, inpatient consultation per RT during admission. Patient discharged to home in stable improved condition with follow-up with her PCP, Cardiology and Vascular Surgery. DAY OF DISCHARGE PROGRESS NOTE: Subjective: Patient without acute event overnight per self and nursing report. Patient out of bed and seated upright in the chair awaiting breakfast. Patient denies fever, chills, nausea, emesis, abdominal pain, chest pain or dyspnea. Patient agreeable and eager to discharge to home. Patient will be discharged with follow-up with primary care physician within 3-5 days in addition to follow-up with vascular surgery in 1 week as well as cardiology per their discretion. Objective: T 97.6, heart rate 65, BP 115/52, respiratory rate 16, 94% on room air. Physical Examination: General: awake, alert, oriented x 3 and cooperative, seated upright in the ICU bedside chair, NAD. Skin: normal color, turgor, no icterus, cyanosis, R groin with dressing in place, soft, NTTP. HEENT: AT/NC, EOMI, PERRLA, mildly dry MM. Lungs: CTA bilaterally, moderate effort, moderate decrease BL bases, no rales, ronchi or wheezing. Heart: Regular rate and rhythm; no gallop, rub audible. Abdomen: soft, NTTP, ND, normal BS, no HSM. Extremities: no cyanosis, clubbing, or edema, R groin with dressing in place, soft, NTTP.. Neurological: patient awake, alert, oriented x 3; cognitive function intact; pupils equally reactive to light and accomodation; cranial nerves II-XII grossly normal, moving all 4 extremities, no focal deficits, strength improved, mildly global decrease secondary to acute presentation. Psychiatric: affect appears improved, normal, less fatigued although still mildly flat affect, no acute evidence of depressive or anxiety feelings. Assessment and Plan: Please see hospital summary above. Patient Problems: Active and Suspected Problems (Last Updated 01/03/19 @ 08:13 by Sandra Che) ACS (acute coronary syndrome) (Acute) Hypokalemia (Acute) Unstable angina (Acute) NSTEMI (non-ST elevated myocardial infarction) (Acute) Peripheral artery disease (Acute) - Physical Exam Vital Signs Temp Pulse Resp BP Pulse Ox 97.6 F L 65 16 115/52 L 94 01/03/19 08:00 01/03/19 08:00 01/03/19 08:00 01/03/19 08:00 01/03/19 08:00 Oxygen Flow Rate (L/min) 2 Oxygen Delivery Method Room Air Weight: 173 lb 8.061 oz Body Mass Index (BMI) 28.8 Finger Stick Blood Glucose 152 Intake and Output for Last 24 Hours 01/01/19 01/02/19 01/03/19 23:59 23:59 23:59 Intake Total 2033 / 4 428 / 428 Output Total 2500 / 2500 1350 / 1350 Balance -466 / -466 -922 / -922 Laboratory Tests Past 24 Hrs 01/02/19 01/03/19 01/03/19 10:01 04:55 04:55 WBC 9.6 RBC 4.59 Hgb 14.6 Hct 42.4 MCV 92.4 MCH 31.8 MCHC 34.4 RDW 13.0 RDW Differential 43.0 Plt Count 204 MPV 10.2 Activated Clotting Time 164 H Sodium 144 Potassium 4.5 Chloride 114 H Carbon Dioxide 22.0 Anion Gap 8 BUN 15 Creatinine 0.73 Estim Creat Clear Calc 71.90 Est GFR (MDRD) Af Amer 104 Est GFR (MDRD) Non-Af 86 BUN/Creatinine Ratio 20.6 H Glucose 121 H Calcium 8.9 Triglycerides 148 Cholesterol 119 LDL Cholesterol 54 VLDL Cholesterol 30 HDL Cholesterol 35 L POC Glucose 01/03/19 01/02/19 01/02/19 07:01 17:06 11:54 POC Glucose 144 H 148 H 115 H Discharge Activity: - - See activity parameters in addition instructions. Weight Bearing Status: Weight bearing as tolerated Call your doctor if your incision/area has: Continuous Slow Oozing, Sudden Increased Bleeding, Increased Pain/ Swelling, Increased Redness, Foul Smelling Discharge, Swelling at the incision site Call your doctor if you observe: Fever of 101 or Higher, Inability to urinate, Inability to have a bowel movement, Shortness of breath, Dizziness, Fainting spells, Chest pain, Uncontrolled pain Home Medications: Medications to take at Discharge Potassium Chloride [K-Tab ER] 20 meq PO DAILY 04/08/18 Metformin HCl 500 mg PO DAILY 04/09/18 Aspirin [Aspirin, Baby] 81 mg PO DAILY@0800 #30 tab.chew 01/03/19 Atorvastatin Calcium [Lipitor] 80 mg PO QHS #30 tablet 01/03/19 Lisinopril [Zestril] 10 mg PO DAILY #30 tablet 01/03/19 Metoprolol Tartrate [Lopressor (beta melany)] 25 mg PO BID #60 tablet 01/03/19 Ticagrelor [Brilinta] 90 mg PO BID #60 tablet 01/03/19 Following Prescrptions Were Given to Patient: Aspirin [Aspirin, Baby] 81 mg PO DAILY@0800 #30 tab.chew Atorvastatin Calcium [Lipitor] 80 mg PO QHS #30 tablet Lisinopril [Zestril] 10 mg PO DAILY #30 tablet Metoprolol Tartrate [Lopressor (beta melany)] 25 mg PO BID #60 tablet Ticagrelor [Brilinta] 90 mg PO BID #60 tablet Other Amb Orders: Phase II, Outpatient Cardiac Rehab Location: None Selected Primary Care Physician: Kaleb Ferraro [Primary Care Provider] - Please follow up with your Primary Care Physician in: Follow-up in 3-5 days to review admission. Please Follow Up With: Harpal Lamb MD When: Cardiology office will call you to arrange appointment. Please Follow Up With: Frandy Earl MD When: Follow-up 1 week. Patient Instructions: Symptoms of a Heart Attack, Tips for Quitting Smoking (Cardiovascular), Long-Term Complications of Diabetes, Oral Medications for Type 2 Diabetes, Healthy Meals for Diabetes, Recognizing a Heart Attack or Angina, Why Do You Smoke?, Planning to Quit Smoking, Getting Support for Quitting Smoking, Understanding Coronary Artery Disease (CAD), What Is High Blood Pressure?, Discharge Instructions for Heart Attack, Smoking and Peripheral Arterial Disease (PAD), Diabetes and Peripheral Arterial Disease (PAD), High Cholesterol and Peripheral Arterial Disease (PAD), High Blood Pressure and Peripheral Arterial Disease (PAD) Disposition: Home Minutes spent on discharge:: 35 Patient Condition:: Fair Medical Necessity - Tobacco Use Smoking Status: Current every day smoker Meaningful Use Info Meaningful Use Diagnoses (Choose all that apply): AMI - AMI Aspirin given w/in 24hrs of arrival?: Yes ASA at discharge?: Yes Statins at discharge?: Yes Clay/ARB at discharge?: Yes Beta Melany at discharge?: Yes Done w/ Acute [place] measure.: Yes Documented LVEF (%): 60 Code Visit Inpatient E&M: 64532 Disch Hosp
[2019-01-03] MEDS: TICAGRELOR 90 MG TABLET PO (08:51)
[2019-01-03] MEDS: Aspirin 81 MG TAB.CHEW PO (08:51)
[2019-01-03] MEDS: Metoprolol Tartrate 25 MG Tablet PO (08:52)
[2019-01-03] MEDS: Lisinopril 10 MG Tablet PO (08:52)
--- NOTE | 2019-01-03 09:26 | PCM.PN.CARD ---
Subjectve: The patient is awake and alert. She has no new acute symptoms or complaints. Objective: Vital Signs Temp Pulse Resp BP Pulse Ox 97.6 F L 69 16 115/52 L 94 01/03/19 08:00 01/03/19 08:52 01/03/19 08:00 01/03/19 08:52 01/03/19 08:00 Oxygen Flow Rate (L/min) 2 Oxygen Delivery Method Room Air Weight: 173 lb 8.061 oz Body Mass Index (BMI) 28.8 Finger Stick Blood Glucose 152 Intake and Output for Last 24 Hours 01/01/19 01/02/19 01/03/19 23:59 23:59 23:59 Intake Total 2033 / 2033 428 / 428 Output Total 2500 / 2500 1350 / 1350 Balance -466 / -466 -922 / -922 General: Awake, Alert, Oriented x 3, No Acute Distress HEENT: Atraumatic, Normocephalic, PERRL, EOMI, Sclera Non Icteric Oral: Moist Mucosa Neck: Supple, Good ROM, No JVD Lungs: Clear to auscultation Cardiovascular: Regular Rhythm, Normal S1, Normal S2 Murmur Murmur: Grade 2/6, Soft, Mid Systolic, LLSB Vascular: Normal Femoral Pulses Abdomen: Bowel Sounds Present, Soft, Non Tender Extremities: No edema Neurological: No Focal Motor or Sensory Deficit Psych/Mental Status: Appropriate 01/03/19 04:55: WBC 9.6, RBC 4.59, Hgb 14.6, Hct 42.4, MCV 92.4, MCH 31.8, MCHC 34.4, RDW 13.0, RDW Differential 43.0, Plt Count 204, MPV 10.2 01/03/19 04:55: Sodium 144, Potassium 4.5, Chloride 114 H, Carbon Dioxide 22.0, Anion Gap 8, BUN 15, Creatinine 0.73, Est GFR (MDRD) Af Amer 104, Est GFR (MDRD) Non-Af 86, BUN/Creatinine Ratio 20.6 H, Glucose 121 H, Calcium 8.9, Triglycerides 148, Cholesterol 119, LDL Cholesterol 54, VLDL Cholesterol 30, HDL Cholesterol 35 L Rhythm: Sinus rhythm EKG: Sinus rhythm; subtle nonspecific ST segment abnormality; no acute ECG changes Medical Necessity - Tobacco Use Smoking Status: Current every day smoker Assessment/Plan 1. Acute non-ST segment elevation [place] At the present time the patient appears to be resting comfortably. She will continue medical therapy and future outpatient cardiovascular follow-up. 2. Hyperlipidemia She will need to continue risk factor evaluation and medication adjustment as deemed appropriate. 3. Hypertension Her blood pressures will be followed. Her medications will be adjusted as needed. 4. Diabetes mellitus She will continue under the evaluation care of her primary care physician. 5. Tobacco use She has been counseled on the need to stop tobacco use. 6. Peripheral vascular disease She is being evaluated by Dr. Pee Earl for concerns of peripheral vascular disease involving her abdominal aorta. Comment: The above was discussed and reviewed with the patient and the [facility] ICU staff. This note was generated with [employer] dictation software. It may contain incorrect words, spelling, and punctuation that were not noted in checking the note before signing.
--- NOTE | 2019-01-03 09:32 | PN.CARD_ITS ---
Subjectve: The patient is awake and alert. She has no new acute symptoms or complaints. Objective: Vital Signs Temp Pulse Resp BP Pulse Ox 97.6 F L 69 16 115/52 L 94 01/03/19 08:00 01/03/19 08:52 01/03/19 08:00 01/03/19 08:52 01/03/19 08:00 Oxygen Flow Rate (L/min) 2 Oxygen Delivery Method Room Air Weight: 173 lb 8.061 oz Body Mass Index (BMI) 28.8 Finger Stick Blood Glucose 152 Intake and Output for Last 24 Hours 01/01/19 01/02/19 01/03/19 23:59 23:59 23:59 Intake Total 2033 / 2033 428 / 428 Output Total 2500 / 2500 1350 / 1350 Balance -466 / -466 -922 / -922 General: Awake, Alert, Oriented x 3, No Acute Distress HEENT: Atraumatic, Normocephalic, PERRL, EOMI, Sclera Non Icteric Oral: Moist Mucosa Neck: Supple, Good ROM, No JVD Lungs: Clear to auscultation Cardiovascular: Regular Rhythm, Normal S1, Normal S2 Murmur Murmur: Grade 2/6, Soft, Mid Systolic, LLSB Vascular: Normal Femoral Pulses Abdomen: Bowel Sounds Present, Soft, Non Tender Extremities: No edema Neurological: No Focal Motor or Sensory Deficit Psych/Mental Status: Appropriate 01/03/19 04:55: WBC 9.6, RBC 4.59, Hgb 14.6, Hct 42.4, MCV 92.4, MCH 31.8, MCHC 34.4, RDW 13.0, RDW Differential 43.0, Plt Count 204, MPV 10.2 01/03/19 04:55: Sodium 144, Potassium 4.5, Chloride 114 H, Carbon Dioxide 22.0, Anion Gap 8, BUN 15, Creatinine 0.73, Est GFR (MDRD) Af Amer 104, Est GFR (MDRD) Non-Af 86, BUN/Creatinine Ratio 20.6 H, Glucose 121 H, Calcium 8.9, Triglycerides 148, Cholesterol 119, LDL Cholesterol 54, VLDL Cholesterol 30, HDL Cholesterol 35 L Rhythm: Sinus rhythm EKG: Sinus rhythm; subtle nonspecific ST segment abnormality; no acute ECG changes Medical Necessity - Tobacco Use Smoking Status: Current every day smoker Assessment/Plan 1. Acute non-ST segment elevation [place] At the present time the patient appears to be resting comfortably. She will continue medical therapy and future outpatient cardiovascular follow- up. 2. Hyperlipidemia She will need to continue risk factor evaluation and medication adjustment as deemed appropriate. 3. Hypertension Her blood pressures will be followed. Her medications will be adjusted as needed. 4. Diabetes mellitus She will continue under the evaluation care of her primary care physician. 5. Tobacco use She has been counseled on the need to stop tobacco use. 6. Peripheral vascular disease She is being evaluated by Dr. Pee Earl for concerns of peripheral vascular disease involving her abdominal aorta. Comment: The above was discussed and reviewed with the patient and the [facility] ICU staff. This note was generated with [employer] dictation software. It may contain incorrect words, spelling, and punctuation that were not noted in checking the note before signing.
--- NOTE | 2019-01-03 09:33 | CASEMGMT ---
RN CM Assessment Presentation: NSTEMI. Heart cath, PCI w/stent RCA. Intro role of CM and purpose of RN CM assessment. Demographics, PCP and Pharmacy verified. PCP: Dr. Ferraro Specialists: Dr. Lamb Preferred Pharmacy: [facility]. Insurance: none Prescription Benefit: None. Brillinta 30 day supply will be filled @ [facility] under prescription assist. Pt does not have prescription benefit. [facility] information given for prescription assist. Explained pt can call number and they will enroll her in their assist program if she qualifies. If assist is not approved and medication is cost prohibitive, pt will let physician know at her cardiology appointment. LNOK: Kaleb Ruby Living Arrangements: Lives independently with her Transportation: drives DME: None HHC: None Patient DC goals: Home DC PLAN: Home Lisbet PLATT RN ACM
--- NOTE | 2019-01-03 09:55 | CASEMGMT ---
Patient is self pay. 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 They cannot afford to pay out of pocket for insurance. She has been able to afford her medications. She goes to [facility] for her PCP. She utilizes [facility] financial assistance program. She is being prescribed Brilinta which is expensive. DEJAH gave patient information on [facility] and RHODA SANTIAGO gave patient information on financial assistance program for Brilinta. Patient's scripts were sent to [facility]. DEJAH called [facility] and spoke with Bobby. DEJAH requested [facility] call [facility] in [place] and request the prescription for Brilinta be sent back to [facility] so we can utilize the hospital assistance program. DEJAH let RN JACK, patient's RN, and patient know that her Brilinta will be here at [facility] and it will be paid for. All of the other prescriptions will be at [facility] in [place]. Pepper SCOTT
--- NOTE | 2019-01-03 10:00 | EKG12_ITS ---
Test Reason : AM Blood Pressure : / mmHG Vent. Rate : 059 BPM Atrial Rate : 059 BPM P-R Int : 142 ms QRS Dur : 070 ms QT Int : 450 ms P-R-T Axes : 063 059 030 degrees QTc Int : 445 ms Sinus bradycardia Low voltage QRS Nonspecific ST abnormality Abnormal ECG Confirmed by SANGEETHA ESCOBAR, ENRIQUE ([id number]), book or script editor DOROTHY CONNORS ([id number]) on 01/05/2019 1:41:17 PM Referred By: Confirmed By:ENRIQUE VIVAS MD
== END 2019-01-03 10:58 | disposition home or self-care (01) | DRG 247 ==
LOC: ED 19:53 → ICU 20:23
PROVIDERS: Internal Medicine Cardiovascular Disease; Admitting Provider Hospitalist; Emergency Provider Emergency Medicine; Family Provider Family Medicine; Visit Provider Family Medicine
DX: I21.4 Non-ST elevation (NSTEMI) myocardial infarction (principal); I16.1 Hypertensive emergency; I25.110 Atherosclerotic heart disease of native coronary artery with unstable angina pectoris; I10 Essential (primary) hypertension; E87.6 Hypokalemia; E11.51 Type 2 diabetes mellitus with diabetic peripheral angiopathy without gangrene; E78.5 Hyperlipidemia, unspecified; F17.210 Nicotine dependence, cigarettes, uncomplicated; D72.829 Elevated white blood cell count, unspecified; I08.1 Rheumatic disorders of both mitral and tricuspid valves
CPT/HCPCS: 71045; 75625; 80048; 80061; 81001; 82962; 83036; 83735; 84484; 85025; 85027; 85347; 85610; 85730; 92928; 93005; 93306; 93458; 93923; 99152; 99153; 99285; J7030; A4216; C1725; C1769; C1874; C1887; C1894; C9600; Q9967

== ENCOUNTER 2022-05-08 12:18 | Emergency (ER) | payer MEDICARE, SELFPAY ==
[2022-05-08 12:19] VITALS: BP 196/65; PULSE 69; RESP 18; TEMP 36.4; O2SAT 97; BMI 28.6
--- NOTE | 2022-05-08 12:55 | RAD_ITS ---
INDICATION: Injury/Pain EXAMINATION/TECHNIQUE: X-RAY - XR Spine Cervical 2 or 3 Views COMPARISON: None. FINDINGS: Straightening of alignment of the columns of the cervical spine is visualized, subtle scattered grade 1 anterolisthesis of C6 over C7 is seen. Degenerative endplate changes visualized but no evidence of compression deformity of the cervical vertebral bodies. Decreased intervertebral disc height visualized most prominent at C7-T1. Unremarkable alignment of the lateral masses of C1 with C2. No prevertebral soft tissue widening. The visualized lung apices are unremarkable. RAD/Cerv Spine 2 or 3 Views IMPRESSION: Degenerative changes of the cervical spine. No evidence of acute osseous abnormality is seen. Electronically Signed: Daniel Preciado MD at 13:28 EDT ,
--- NOTE | 2022-05-08 12:57 | EX.ED.DYSGE1 ---
HPI History of Present Illness Chief Complaint: Other, Pain/Inj Detail of Chief Complaint: Atraumatic neck pain that started Wednesday Informant: patient Onset/Context/Timing Onset: Days Context: Sudden Onset Timing: Continuous Quality: Pain posterior right side of the neck Location: Posterior neck on the right side Current Severity: Mild Maximum Severity: Moderate Worsened by: Movement Relieved by: Nothing Associated Symptoms Associated Symptoms: No associated symptoms Narrative Narrative: Patient is a 66-year-old woman with history of type 2 diabetes, hyperlipidemia, atherosclerotic heart disease, peripheral arterial disease and hypertension who presents with atraumatic posterior right-sided neck pain. She feels like someone squeezing it. She denies headache. Denies visual, ocular auditory symptoms. Denies trouble with coordination or balance. No trouble speech or swallowing. She denies radiation of pain to the right shoulder or right upper extremity. She denies weakness in her grasp. She denies altered sensation in her digits. She denies cardiac or respiratory symptoms. Prior similar symptoms: No Recent Illness/Hospitalization: No PFSH PFS Medical History (Updated 05/08/22 @ 13:[address] Bryan Barbosa MD) ACS (acute coronary syndrome) Atherosclerotic heart disease of [place] coronary artery without angina pectoris Diabetes mellitus type 2 in obese Essential hypertension Hyperlipidemia Hypokalemia NSTEMI (non-ST elevated myocardial infarction) Peripheral artery disease S/P coronary artery stent placement (~01/02/19) SBO (small bowel obstruction) Unstable angina Home Medications metformin 500 mg tablet 500 mg PO DAILY diabetes 04/09/18 [History Last Taken 04/07/18 05:30] clopidogrel 75 mg tablet 75 mg PO DAILY #90 tabs 02/24/19 [Rx Last Taken Unknown] aspirin 81 mg chewable tablet 81 mg PO DAILY@0800 #30 tabs 08/07/19 [Rx Last Taken Unknown] atorvastatin 80 mg tablet 80 mg PO QHS #30 tabs 08/07/19 [Rx Last Taken Unknown] lisinopril 10 mg tablet 10 mg PO DAILY #30 tabs 08/07/19 [Rx Last Taken Unknown] metoprolol tartrate 25 mg tablet 25 mg PO BID #60 tabs 08/12/20 [Rx Last Taken Unknown] potassium chloride 20 mEq tablet,extended release 20 meq PO DAILY supplement #30 tabs 11/04/20 [Rx Last Taken Unknown] hydrocodone-acetaminophen 5-325mg 5mg-325mg 1 tab PO Q6H PRN PRN Pain 3 days #10 TABLETS 05/08/22 [Rx Last Taken Unknown] Allergy/AdvReac Type Severity Reaction Status Date / Time propoxyphene [From Darvon] Allergy Unknown Verified 05/08/22 12:18 Family History Mother COPD (chronic obstructive pulmonary disease) CVA (cerebral vascular accident) Surgical History History of abdominal surgery History of colectomy Presence of coronary angioplasty implant and graft (~01/02/19) Social History (Updated 05/08/22 @ 13:[address] Bryan Barbosa MD) household members: none Smoking Status: Current every day smoker tobacco type: cigarettes alcohol intake: current details: Rare substance use type: does not use caffeine: Yes Type: coffee Number of servings: 3 ROS ROS ED Constitutional Constitutional ED: Denies chills, fever(s), subjective, sweats or weight loss Eyes Eyes: Denies blurry vision, change in vision or diplopia ENT ENT ED: Denies ear pain, rhinorrhea or sore throat Cardiovascular Cardiovascular: Denies chest pain, orthopnea, palpitations, paroxysmal nocturnal dyspnea or racing heartbeat Respiratory/Chest Respiratory/Chest: Denies cough, dyspnea, dyspnea on exertion, orthopnea or paroxysmal nocturnal dyspnea Musculoskeletal Musculoskeletal: Reports neck pain; Denies arthralgias, back pain or myalgias Neurologic Neurologic: Denies paresthesias or weakness EXAM Physical Exam Const Vital Signs: 05/08/22 12:19 05/08/22 13:14 Temperature 97.5 F L Temperature Source Temporal Pulse Rate 69 Respiratory Rate 18 Respiratory Effort Normal Non-Labored Respiratory Pattern Normal Blood Pressure 196/65 H Blood Pressure Mean 108 Pulse Ox 97 Oxygen Delivery Method Room Air Positive well nourished and well developed General Appearance ED: well developed and NAD; Negative for cyanotic, diaphoretic or pallor HEENT Reports moist mucous membranes HEENT Narrative: Ears normal. External auditory canal normal. Nares patent. No discharge noted. Uvula midline. No deviation tongue with trusion. No erythema or exudate. No dental pathology. Eyes PERRL and EOMs intact bilaterally General Eye ED: Negative for pale conjunctiva or scleral icterus Neck no lymphadenopathy, supple and no JVD Neck Narrative: Patient has pain with extension against resistance and pushing to the right against resistance. Rotation to the right and left also causes her discomfort. There is reproducible pain posterior right side of the neck. Trachea is midline. There is no cervical lymphadenopathy. There is no right or left carotid bruit noted. There is no posterior cervical lymphadenopathy noted. There is no dermatologic lesions noted. Resp normal respiratory effort and clear to auscultation bilaterally Cardio regular rate, regular rhythm, S1 normal heart sound, S2 normal heart sound and no murmurs Back/Spine Cervical Spine: Negative for cervical spine tenderness Thoracic Spine / Upper Back: Negative for thoracic spinal tenderness Extremity normal to inspection Extremity Narrative: Bicep, brachialis and tricep reflex are 1+ and symmetric. Axillary, median, radial and ulnar function intact. There is no pain with passive internal/external rotation or abduction past 90 degrees. Radial pulses palpable and symmetric. Sensation is normal. Neuro oriented x3, CN's II-XII intact bilaterally and no sensory deficits noted Sensorium / Orientation: alert Psych mental status grossly normal Skin no rashes or lesions noted, no wounds and No skin turgor normal General Skin Exam: Negative for jaundice or pallor MDM MDM MDM Narrative Medical decision making narrative: Patient with persistent pain and spite of [id number] anti-inflammatories, lidocaine patch. Will obtain x-ray to determine if there is any foraminal narrowing or significant degenerative changes. Since there are no neurologic or vascular findings CT or MRI is not indicated at this time. Radiography Chest X-Ray - ED: Read by ED Physician (Three-view x-ray of the cervical spine interpreted independently by me at 1319 reveals no acute abnormality. There is minimal degenerative changes. There is no fracture, subluxation or dislocation noted. There is no soft tissue swelling noted.) Discharge Plan Triage Chief Complaint: Other, Pain/Inj ED Provider: Bryan Barbosa Dx/Rx/DC Orders Clinical Impression: Strain of cervical portion of right trapezius muscle, Peripheral artery disease, Asymptomatic chronic venous hypertension, History of type 2 diabetes mellitus Instructions: ED Neck Sprain or Strain Prescriptions: New hydrocodone-acetaminophen [hydrocodone-acetaminophen] 5-325 mg tablet 1 tab PO Q6H PRN PRN (Reason: Pain) 3 Days Qty: 10 0RF No Action metformin 500 MG tablet 500 mg PO DAILY clopidogrel 75 mg tablet 75 mg PO DAILY Qty: 90 3RF aspirin 81 mg tablet,chewable 81 mg PO DAILY@0800 Qty: 30 11RF atorvastatin 80 mg tablet 80 mg PO QHS Qty: 30 11RF lisinopril 10 mg tablet 10 mg PO DAILY Qty: 30 11RF metoprolol tartrate 25 mg tablet 25 mg PO BID Qty: 60 0RF potassium chloride 20 mEq tablet extended release 20 meq PO DAILY Qty: 30 11RF Primary Care Provider: Kaleb Ferraro Referrals: Kalbe Ferraro [Primary Care Provider] - 3-5 Days Activity Restrictions/Additional Instructions: Follow-up with your physician, Dr. Ferraro for blood pressure check in 5 to 7 days. Also if there is no improvement with regards to your neck pain follow-up with him sooner. Disposition Disposition: Home, Self Care
[2022-05-08 13:40] VITALS: BP 158/64
== END 2022-05-08 13:41 | disposition home or self-care (01) ==
PROVIDERS: Emergency Provider Emergency Medicine; Visit Provider Emergency Medicine
DX: S16.1XXA Strain of muscle, fascia and tendon at neck level, initial encounter (principal); E11.51 Type 2 diabetes mellitus with diabetic peripheral angiopathy without gangrene; I25.110 Atherosclerotic heart disease of native coronary artery with unstable angina pectoris; X58.XXXA Exposure to other specified factors, initial encounter; I10 Essential (primary) hypertension; E78.5 Hyperlipidemia, unspecified; I25.2 Old myocardial infarction; F17.210 Nicotine dependence, cigarettes, uncomplicated
CPT/HCPCS: 72040; 99282

== ENCOUNTER 2022-09-03 08:55 | Observation (INO) | payer MEDICARE, SELFPAY ==
[2022-09-03] VITALS (12 sets, daily range): BP systolic 112–171; BP diastolic 50–63; PULSE 55–66; RESP 13–18; TEMP 36.3–37.2; O2SAT 94–97; BMI 28.3; BMI 28.4
--- NOTE | 2022-09-03 09:07 | EDS_ITS ---
HPI History of Present Illness Chief Complaint: Chest Pain Detail of Chief Complaint: Chest pain Informant: patient and spouse/S.O. Onset/Context/Timing Current Severity: 09/25 Narrative Narrative: Patient presents with chest discomfort that started about an hour and a half ago. Patient states that she was sitting watching TV. She describes a pressure tightness that radiates into her neck. Patient felt somewhat short of breath with it and the pain was more severe initially but has lessened. Patient states she felt similarly years ago when she required a cardiac stent and she thinks that was about 3 years ago. Patient took aspirin yesterday and is also on Plavix. Patient denies recent travel or surgery. She denies recent illness or fever or cough. Prior Similar Symptoms: Yes and With Prior [place] Recent Illness/Hospitalization: No [facility] Medical History (Updated 09/03/22 @ 09:[address] Pedro Ernandez, DO) ACS (acute coronary syndrome) Atherosclerotic heart disease of [place] coronary artery without angina pectoris Diabetes mellitus type 2 in obese Essential hypertension Hyperlipidemia Hypokalemia NSTEMI (non-ST elevated myocardial infarction) Peripheral artery disease S/P coronary artery stent placement (~01/02/19) SBO (small bowel obstruction) Unstable angina Home Medications metformin 500 mg tablet 500 mg PO DAILY diabetes 04/09/18 [History Last Taken 04/07/18 05:30] clopidogrel 75 mg tablet 75 mg PO DAILY #90 tabs 02/24/19 [Rx Last Taken Unknown] aspirin 81 mg chewable tablet 81 mg PO DAILY@0800 #30 tabs 08/07/19 [Rx Last Taken Unknown] atorvastatin 80 mg tablet 80 mg PO QHS #30 tabs 08/07/19 [Rx Last Taken Unknown] lisinopril 10 mg tablet 10 mg PO DAILY #30 tabs 08/07/19 [Rx Last Taken Unknown] metoprolol tartrate 25 mg tablet 25 mg PO BID #60 tabs 08/12/20 [Rx Last Taken Unknown] potassium chloride 20 mEq tablet,extended release 20 meq PO DAILY supplement #30 tabs 11/04/20 [Rx Last Taken Unknown] hydrocodone-acetaminophen 5-325mg 5mg-325mg 1 tab PO Q6H PRN PRN Pain 3 days #10 TABLETS 05/08/22 [Rx Last Taken Unknown] Allergy/AdvReac Type Severity Reaction Status Date / Time propoxyphene [From Darvon] Allergy Unknown Verified 09/03/22 08:59 Family History Mother COPD (chronic obstructive pulmonary disease) CVA (cerebral vascular accident) Surgical History History of abdominal surgery History of colectomy Presence of coronary angioplasty implant and graft (~01/02/19) Social History (Updated 05/08/22 @ 13:[address] Bryan Barbosa MD) household members: none Smoking Status: Current every day smoker tobacco type: cigarettes alcohol intake: current details: Rare substance use type: does not use caffeine: Yes Type: coffee Number of servings: 3 ROS ROS ED Review of Systems ROS Unobtainable: other Constitutional Constitutional ED: Reports lethargy; Denies chills, fever(s), sweats or weight loss Eyes Eyes: Denies blurry vision, change in vision or diplopia ENT ENT ED: Denies rhinorrhea or sore throat Cardiovascular Cardiovascular: Reports chest pain; Denies orthopnea or racing heartbeat Respiratory/Chest Respiratory/Chest: Reports dyspnea; Denies cough, dyspnea on exertion, orthopnea or sputum Gastrointestinal Gastrointestinal: Denies abdominal pain, diarrhea, nausea or vomiting Genitourinary Genitourinary ED: Denies dysuria, hematuria or urinary frequency Musculoskeletal Musculoskeletal: Denies arthralgias, back pain, myalgias or neck pain Integumentary Denies abscess, Abrasions or rash Neurologic Neurologic: Denies headache(s) or weakness Psychiatric Psychiatric: Denies anxiety, depression or suicidal thoughts Endocrine Endocrinology: Denies polydipsia, polyphagia or polyuria Hematologic/Lymphatic Hematologic/Lymphatic: Denies easy bleeding, easy bruising or lymphadenopathy Allergic/Immunologic Allergic/Immunologic ED: Denies mouth swelling, tongue swelling or urticaria EXAM Physical Exam Const Vital Signs: 09/03/22 08:56 09/03/22 08:58 09/03/22 09:00 Temperature 97.4 F L 97.4 F L Temperature Source Temporal Temporal Pulse Rate 65 66 Respiratory Rate 16 17 Respiratory Effort Normal Non-Labored Blood Pressure 171/58 H 171/58 H Blood Pressure Mean 95 95 Pulse Ox 96 97 Oxygen Delivery Method Room Air Room Air Oxygen Flow Rate (L/min) 09/03/22 09:20 09/03/22 09:29 09/03/22 09:36 Temperature Temperature Source Pulse Rate 59 L 60 Respiratory Rate 13 Respiratory Effort Blood Pressure 132/55 H 128/58 H Blood Pressure Mean 81 Pulse Ox 95 Oxygen Delivery Method Room Air Room Air Oxygen Flow Rate (L/min) 95 Positive well nourished and well developed General Appearance ED: well developed and NAD HEENT Reports TM's clear and moist mucous membranes normocephalic and atraumatic; Negative for trauma or tenderness Tympanic Membrane ED: Yes TM's clear Eyes PERRL and EOMs intact bilaterally General Eye ED: Negative for pale conjunctiva or scleral icterus Neck no lymphadenopathy, supple and no JVD General: Negative for tenderness Chest Wall inspection of chest normal and palpation of chest normal Chest: Negative for tenderness Resp normal respiratory effort and clear to auscultation bilaterally Effort and Inspection: Negative for respiratory distress or pain with movement Auscultation: Negative for rhonchi, wheezes or diminished lung sounds Cardio regular rate, regular rhythm, S1 normal heart sound, S2 normal heart sound and no murmurs Peripheral Pulses: pulses 2+ throughout GI normal to inspection, nondistended, normoactive bowel sounds, soft to palpation, non-tender, non-distended and no masses Back/Spine no CVA tenderness and no thoracic nor lumbar tenderness Extremity normal to inspection General Extremety ED: Negative for edema General Extremity: Negative for edema Neuro oriented x3, CN's II-XII intact bilaterally, no sensory deficits noted and gait normal Sensorium / Orientation: awake, alert, oriented to person, oriented to place and oriented to time Motor Exam: strength 5/5 throughout and strength abnormal Psych mental status grossly normal Skin no rashes or lesions noted and no wounds Heart Score History: Highly Suspicious ECG: Normal Age: >/= 65 years Risk Factors: >/= 3 Risk Factors or History of CAD Troponin: </= Normal Limit Score: 6 MDM MDM MDM Narrative Medical decision making narrative: IV line established on arrival. Patient placed on a campus monitor. Patient received aspirin and was ordered nitroglycerin sublingual. Initial EKG showed a sinus rhythm with a ventricular rate of 60 bpm with no acute ST segment changes noted. I did review patient's heart cath report from December 2018 which did show at that time a proximal right coronary artery occlusion of 90% for which she received a stent. Patient had resolution of her pain with nitroglycerin. Lab work-up was essentially normal with a normal troponin and normal D-dimer. Chest x-ray was unremarkable. Case will be discussed with hospitalist to evaluate patient for admission given that she is high risk for acute coronary syndrome. Lab Data Attestation: I reviewed the patient's lab results. Labs: Laboratory Results - last 24 hr 09/03/22 09/03/22 09/03/22 09:22 09:22 09:22 WBC 8.5 RBC 4.42 Hgb 13.8 Hct 41.7 MCV 94.3 MCH 31.2 MCHC 33.1 RDW Std Deviation 43.1 RDW Coeff of [place] 12.4 Plt Count 199 MPV 10.8 Immature Gran % (Auto) 0.200 Neut % (Auto) 56.0 Lymph % (Auto) 33.3 [place] % (Auto) 7.2 Eos % (Auto) 3.1 Baso % (Auto) 0.2 Absolute Neuts (auto) 4.7 Absolute Lymphs (auto) 2.82 Nucleated RBC % 0 D-Dimer Quant (PE/DVT) 0.46 Sodium 139 Potassium 4.3 Chloride 110 H Carbon Dioxide 24.0 Anion Gap 5 BUN 12 Creatinine 0.68 Estim Creat Clear Calc 49.80 Est GFR (MDRD) Af Amer 111 Est GFR (MDRD) Non-Af 92 BUN/Creatinine Ratio 17.6 Glucose 186 H Calcium 9.1 Troponin I High Sens 5 Radiography Diagnostic Testing: Clinical Impression(s) from Imaging Studies Chest X-Ray 09/03/22 09:25 IMPRESSION: Normal x-ray examination of the chest. Electronically Signed: Elio Goodman MD at 9:35 EST , 1 view chest x-ray obtained interpreted by myself as no acute disease process without evidence of pneumothorax or infiltrate. Radiology was in agreement. EKG Initial EKG: Attestation: I personally reviewed and interpreted this EKG as follows: Comments: Sinus rhythm with a ventricular rate of 60 bpm with no acute ST segment changes Discharge Plan Triage Chief Complaint: Chest Pain ED Provider: Pedro Ernandez Dx/Rx/DC Orders Clinical Impression: Chest pain, History of coronary artery disease, History of hypertension Prescriptions: No Action metformin 500 MG tablet 500 mg PO DAILY hydrocodone-acetaminophen [hydrocodone-acetaminophen] 5-325 mg tablet 1 tab PO Q6H PRN PRN (Reason: Pain) 3 Days Qty: 10 0RF clopidogrel 75 mg tablet 75 mg PO DAILY Qty: 90 3RF aspirin 81 mg tablet,chewable 81 mg PO DAILY@0800 Qty: 30 11RF atorvastatin 80 mg tablet 80 mg PO QHS Qty: 30 11RF lisinopril 10 mg tablet 10 mg PO DAILY Qty: 30 11RF metoprolol tartrate 25 mg tablet 25 mg PO BID Qty: 60 0RF potassium chloride 20 mEq tablet extended release 20 meq PO DAILY Qty: 30 11RF Primary Care Provider: Kaleb Ferraro Referrals: Kaleb Ferraro [Primary Care Provider] - Disposition Disposition: Acute Care Hospital [facility]
--- NOTE | 2022-09-03 09:15 | EKG12_ITS ---
Test Reason : CP Blood Pressure : / mmHG Vent. Rate : 060 BPM Atrial Rate : 060 BPM P-R Int : 142 ms QRS Dur : 080 ms QT Int : 414 ms P-R-T Axes : 076 072 062 degrees QTc Int : 414 ms Normal sinus rhythm Normal ECG Confirmed by DAVION ESCOBAR, AMBERLY ([id number]), news editor DOROTHY CONNORS ([id number]) on 09/07/2022 10:29:41 AM Referred By: [facility] Confirmed By:AMBERLY RICARDO MD
--- NOTE | 2022-09-03 09:25 | RAD_ITS ---
STUDY: X-RAY CHEST REASON FOR EXAM: Female, 67 years old. Chest pain, shortness of breath. TECHNIQUE: Single AP portable view of the chest. COMPARISON: Comparison is made with prior study dated 01/01/2019. FINDINGS: EKG electrodes are seen. The lungs are clear and expanded. Scattered calcified granulomas. There is no demonstrated pleural abnormality. Normal size heart. Normal mediastinum and poli. Normal visualized pulmonary arteries. Normal visualized aortic arch and descending thoracic aorta. There are degenerative changes of the visualized thoracic spine. Minimal dextroscoliosis. Normal visualized ribs, clavicles, and shoulders. There is no demonstrated abnormality of the visualized soft tissue structures of the upper abdomen. RAD/Chest 1 View (Portable) IMPRESSION: Normal x-ray examination of the chest. Electronically Signed: Elio Goodman MD at 9:35 EST ,
[2022-09-03] MEDS: Aspirin 81 MG TAB.CHEW 324 MG PO (09:28)
[2022-09-03] MEDS: Nitroglycerin SL (ED/IMG/CATH) 0.4 MG TABLET SL (09:29)
[2022-09-03 09:30] LABS: Absolute Lymphocyte Count 2.82 X10^3/uL (0.83-4.51); Absolute Neutrophil Count 4.7 X10^3/uL (2.0-7.7); Basophil# 0.02 X10^3/uL; Basophil% 0.2 % (0-1); Eosinophil# 0.26 X10^3/uL; Eosinophils% 3.1 % (0-5); Hematocrit 41.7 % (37-47); Hemoglobin 13.8 g/dL (12.0-15.0); Lymphocyte # 2.82 X10^3/ul (0.83-4.51); Lymphocyte % 33.3 % (19-41); Mean Corp Hgb Conc 33.1 g/dL (32-36); Mean Corpuscular Hgb 31.2 pg (27.0-32.0); Mean Corpuscular Volume 94.3 fL (81-99); Mean Platelet Vol. 10.8 fl (6.2-12.0); Monocyte# 0.61 X10^3/uL; Monocyte% 7.2 % (0-10); NRBC Flagged by Analyzer 0 % (0-5); Neutrophil # 4.74 X10^3/uL (2.7-7.7); Platelet Count 199 K/mm3 (150-450); RBC Distribution Width CV 12.4 % (11.6-14.6); RBC Distribution Width SD 43.1 fl (35.1-43.9); Red Blood Count 4.42 M/mm3 (4.2-5.4); White Blood Count 8.5 K/mm3 (4.4-11.0)
[2022-09-03] MEDS: 0.9% Normal Saline 1,000 ML 150 ML IV (09:32)
[2022-09-03 09:47] LABS: Anion Gap 5 (5-15); BUN 12 mg/dL (7-18); BUN/Creat Ratio 17.6 RATIO (10-20); Calcium,Total 9.1 mg/dL (8.5-10.1); Chloride 110 mmol/L (98-107); Creatinine, Serum 0.68 mg/dL (0.55-1.02); EST Glomerular Filtration Rate 92 mL/min (>60); Est Glom Filt Rate - Afr Amer 111 mL/min (>60); Glucose 186 mg/dL (74-106); Potassium 4.3 mmol/L (3.5-5.1); Sodium Level 139 mmol/L (136-145); Troponin-I HS (w/2H Reflex) 5 pg/mL (3.0-54.0)
[2022-09-03 09:48] LABS: D-Dimer Quantitative (DVT/PE) 0.46 FEU/ug/m (0.27-0.49)
[2022-09-03] MEDS: Nitroglycerin Oint 1 INCH PACKET TD (10:03)
--- NOTE | 2022-09-03 10:18 | NURSING ---
DR PATRICK FIGUEROA
--- NOTE | 2022-09-03 10:22 | PCM.HP.STD ---
HPI - General General Date of Admission: 09/03/22 Date of Service: 09/03/22 Chief Complaint: Chest pain - 1 day HPI Narrative TON CAIN, is a 67 F who presents with the above. Patient has past medical history of CAD status post cardiac cath in 2019 which showed multivessel coronary artery disease, 90% RCA stenosis, current smoker, smokes about a pack, hypertension, type II DM who comes in with complaints of chest pain that happened at rest. Chest pain was substernal, pressure-like, lasted for more than an hour and half. Admitted to come to the emergency room. Blood pressure in the ED was 171/58, heart rate 65, respiratory 16, temperature 97.4 F, oxygen sat 96%. Labs on admission are unremarkable. EKG showed with no ST-T changes. Chest X-ray has been unremarkable. [facility] Medical History ACS (acute coronary syndrome) Atherosclerotic heart disease of [place] coronary artery without angina pectoris Diabetes mellitus type 2 in obese Essential hypertension Hyperlipidemia Hypokalemia NSTEMI (non-ST elevated myocardial infarction) Peripheral artery disease S/P coronary artery stent placement (~01/02/19) SBO (small bowel obstruction) Unstable angina Home Medications metformin 500 mg tablet 500 mg PO DAILY diabetes 04/09/18 [History Last Taken 09/03/22] clopidogrel 75 mg tablet 75 mg PO DAILY #90 tabs 02/24/19 [Rx Last Taken 09/03/22] aspirin 81 mg chewable tablet 81 mg PO DAILY@0800 #30 tabs 08/07/19 [Rx Last Taken 09/02/22] atorvastatin 80 mg tablet 80 mg PO QHS #30 tabs 08/07/19 [Rx Last Taken 09/02/22] lisinopril 10 mg tablet 10 mg PO DAILY #30 tabs 08/07/19 [Rx Last Taken 09/03/22] metoprolol tartrate 25 mg tablet 25 mg PO BID #60 tabs 08/12/20 [Rx Last Taken 09/03/22] potassium chloride 10 mEq tablet,extended release 20 meq PO DAILY SUPPLEMENT 09/03/22 [History Last Taken 09/03/22] Allergy/AdvReac Type Severity Reaction Status Date / Time propoxyphene [From Darvon] Allergy Unknown Verified 09/03/22 08:59 Family History Mother COPD (chronic obstructive pulmonary disease) CVA (cerebral vascular accident) Surgical History History of abdominal surgery History of colectomy Presence of coronary angioplasty implant and graft (~01/02/19) Social History household members: none Smoking Status: Current every day smoker tobacco type: cigarettes alcohol intake: current details: Rare substance use type: does not use caffeine: Yes Type: coffee Number of servings: 3 ROS ROS Narrative Constitutional: Denies: Anorexia, Chills, Fever, Night Sweats, Weight Change Eyes: Denies: Blurred vision, Cataracts, Conjunctivae Inflammation, Pain, Redness, Vision Change HEENT: Denies: Difficulty Hearing, Difficulty Swallowing, Head Aches, Hearing Changes, Sinus Congestion, Sinus Drainage Cardiovascular: See HPI Respiratory: Denies: Cough, Shortness of breath at rest, Sputum production Gastrointestinal: Denies: Abdominal Pain, Nausea, Vomiting Genitourinary: Denies: Dysuria Musculoskeletal: Denies: Joint Pain, Joint stiffness, Joint swelling, Joint Tenderness Skin: Denies: Rash, Wounds Neurological: Denies: Numbness, Tingling, Focal weakness Vital Signs Vital Signs Vital Signs: 09/03/22 08:56 09/03/22 08:58 09/03/22 09:00 Temperature 97.4 F L 97.4 F L Temperature Source Temporal Temporal Pulse Rate 65 66 Respiratory Rate 16 17 Respiratory Effort Normal Non-Labored Blood Pressure 171/58 H 171/58 H Blood Pressure Mean 95 95 Pulse Ox 96 97 Oxygen Delivery Method Room Air Room Air Oxygen Flow Rate (L/min) 09/03/22 09:20 09/03/22 09:29 09/03/22 09:36 Temperature Temperature Source Pulse Rate 59 L 60 Respiratory Rate 13 Respiratory Effort Blood Pressure 132/55 H 128/58 H Blood Pressure Mean 81 Pulse Ox 95 Oxygen Delivery Method Room Air Room Air Oxygen Flow Rate (L/min) 95 09/03/22 10:03 09/03/22 10:13 Temperature 98.0 F Temperature Source Oral Pulse Rate 55 L 56 L Respiratory Rate 17 Respiratory Effort Blood Pressure 153/60 H 139/63 H Blood Pressure Mean 88 Pulse Ox 96 Oxygen Delivery Method Room Air Oxygen Flow Rate (L/min) Weight Weight: 77.111 kg Body Mass Index (BMI) 28.3 Physical Exam Narrative Physical exam: General: Alert, Oriented x3, Cooperative HEENT: Atraumatic Oral: Moist Mucosa Neck: Supple Lungs: Clear to auscultation Cardiovascular: HS I+II, regular, no murmurs Abdomen: Bowel Sounds Present, Soft, Non Tender Extremities: No edema Skin: No rashes, No breakdown Neurological: Grossly intact Psych/Mental Status: Appropriate Results Lab / Micro Data Result Diagrams: 09/03/22 09:22 09/03/22 09:22 Labs: Laboratory Results - last 24 hr 09/03/22 09:22: WBC 8.5, RBC 4.42, Hgb 13.8, Hct 41.7, MCV 94.3, MCH 31.2, MCHC 33.1, RDW Std Deviation 43.1, RDW Coeff of [place] 12.4, Plt Count 199, MPV 10.8, Immature Gran % (Auto) 0.200, Neut % (Auto) 56.0, Lymph % (Auto) 33.3, [place] % (Auto) 7.2, Eos % (Auto) 3.1, Baso % (Auto) 0.2, Absolute Neuts (auto) 4.7, Absolute Lymphs (auto) 2.82, Nucleated RBC % 0 09/03/22 09:22: D-Dimer Quant (PE/DVT) 0.46 09/03/22 09:22: Sodium 139, Potassium 4.3, Chloride 110 H, Carbon Dioxide 24.0, Anion Gap 5, BUN 12, Creatinine 0.68, Estim Creat Clear Calc 49.80, Est GFR (MDRD) Af Amer 111, Est GFR (MDRD) Non-Af 92, BUN/Creatinine Ratio 17.6, Glucose 186 H, Calcium 9.1, Troponin I High Sens 5 Radiology Impression Chest X-Ray 09/03/22 09:25 IMPRESSION: Normal x-ray examination of the chest. Electronically Signed: Elio Goodman MD at 9:35 EST , Assessment & Plan Assessment/Plan (1) Chest pain: PLAN: Plan 1. Chest pain, in a patient with history of CAD status post RCA stent in 2019 EKG showed no acute ST-T changes, troponins unremarkable We will admit to the PCU, continue to monitor on telemetry, trend troponin Continue with aspirin, Plavix, statin, metoprolol, lisinopril 2. ypertension/hyperlipidemia, continue lisinopril, metoprolol and statin as well 3. Type II DM, on metformin, will hold metformin, continue with blood glucose checks and insulin sliding scale 4. DVT prophylaxis?Lovenox subcu Charges/Coding Visit Charges Inpatient E&M: 85777 Init Hosp L2
--- NOTE | 2022-09-03 10:23 | NURSING ---
PCU OBS PATRICK CP, HX OF CAD, HYPERTENSION
[2022-09-03 11:27] LABS: Reflex Troponin-HS? (from REC) Y
--- NOTE | 2022-09-03 11:35 | EKG12_ITS ---
Test Reason : CP ADMISSION Blood Pressure : / mmHG Vent. Rate : 057 BPM Atrial Rate : 057 BPM P-R Int : 138 ms QRS Dur : 088 ms QT Int : 440 ms P-R-T Axes : 075 070 068 degrees QTc Int : 428 ms Sinus bradycardia Low voltage QRS Borderline ECG When compared with ECG of 03-SEP-2022 09:02, MANUAL COMPARISON REQUIRED, DATA IS UNCONFIRMED Confirmed by DAVION ESCOBAR, AMBERLY ([id number]), primer expeditor and drier DOROTHY CONNORS ([id number]) on 09/08/2022 11:35:31 AM Referred By: PATRICK Confirmed By:AMBERLY RICARDO MD
[2022-09-03 12:02] LABS: Troponin-I HS 4 pg/mL (3.0-54.0)
[2022-09-03 12:26] LABS: Bedside Glucose 130 mg/dL (74-106)
[2022-09-03 16:40] LABS: Troponin-I HS 5 pg/mL (3.0-54.0)
[2022-09-03 17:05] LABS: Bedside Glucose 106 mg/dL (74-106)
[2022-09-03] MEDS: Metoprolol Tartrate 25 MG Tablet PO (20:36)
[2022-09-03] MEDS: Atorvastatin Calcium 80 MG Tablet PO (20:37)
[2022-09-03 22:36] LABS: Bedside Glucose 118 mg/dL (74-106)
[2022-09-04 02:55] VITALS: BP 139/68; PULSE 54; RESP 15; TEMP 36.7; O2SAT 92
[2022-09-04 04:39] LABS: Absolute Lymphocyte Count 2.65 X10^3/uL (0.83-4.51); Basophil# 0.04 X10^3/uL; Basophil% 0.5 % (0-1); Eosinophil# 0.28 X10^3/uL; Eosinophils% 3.7 % (0-5); Hematocrit 40.7 % (37-47); Hemoglobin 13.1 g/dL (12.0-15.0); Lymphocyte # 2.65 X10^3/ul (0.83-4.51); Lymphocyte % 34.8 % (19-41); Mean Corp Hgb Conc 32.2 g/dL (32-36); Mean Corpuscular Hgb 31.1 pg (27.0-32.0); Mean Corpuscular Volume 96.7 fL (81-99); Mean Platelet Vol. 10.9 fl (6.2-12.0); Monocyte# 0.59 X10^3/uL; Monocyte% 7.7 % (0-10); NRBC Flagged by Analyzer 0 % (0-5); Neutrophil # 4.03 X10^3/uL (2.7-7.7); Neutrophil % 52.9 % (47-70); Platelet Count 192 K/mm3 (150-450); RBC Distribution Width CV 12.5 % (11.6-14.6); RBC Distribution Width SD 44.8 fl (35.1-43.9); Red Blood Count 4.21 M/mm3 (4.2-5.4); White Blood Count 7.6 K/mm3 (4.4-11.0)
[2022-09-04 05:11] LABS: ALB/GLOB Ratio 0.9 RATIO (0.9-2.4); AST(SGOT) 22 U/L (15-37); Alanine Aminotransfer ALT/SGPT 36 U/L (13-56); Albumin, Serum 3.1 g/dL (3.2-5.0); Alkaline Phosphatase 70 U/L (45-117); Anion Gap 4 (5-15); BUN 14 mg/dL (7-18); BUN/Creat Ratio 19.5 RATIO (10-20); Calcium,Total 8.6 mg/dL (8.5-10.1); Chloride 112 mmol/L (98-107); Creatinine, Serum 0.72 mg/dL (0.55-1.02); EST Glomerular Filtration Rate 86 mL/min (>60); Est Glom Filt Rate - Afr Amer 105 mL/min (>60); Globulin 3.3 g/dL (2.2-4.2); Glucose 121 mg/dL (74-106); Potassium 4.3 mmol/L (3.5-5.1); Protein, Total 6.4 g/dL (6.4-8.2); Sodium Level 140 mmol/L (136-145)
[2022-09-04 06:17] VITALS: BP 146/60; PULSE 57; RESP 16; TEMP 36.5; O2SAT 92
[2022-09-04] MEDS: Lisinopril 10 MG Tablet PO (06:18)
[2022-09-04] MEDS: Aspirin 81 MG TAB.CHEW PO (06:18)
[2022-09-04] MEDS: Clopidogrel Bisulfate 75 MG Tablet PO (06:19)
[2022-09-04 06:45] LABS: Bedside Glucose 136 mg/dL (74-106)
[2022-09-04 11:12] VITALS: BP 135/60; PULSE 63; RESP 17; TEMP 36.8; O2SAT 93
[2022-09-04 11:14] VITALS: PULSE 63
[2022-09-04] MEDS: Metoprolol Tartrate 25 MG Tablet PO (11:14)
[2022-09-04] MEDS: Potassium Chloride Oral Tablet 10 MEQ 20 MEQ PO (11:14)
--- NOTE | 2022-09-04 12:02 | CASEMGMT ---
RN JACK NOTE: Intro role of CM to patient and LOYA form explained re: Observation status for treatment of chest pain. Explained hospitalization will be paid per her insurance policy for Outpatient billing and condition will continue to be evaluated for Inpt necessity. Also let pt know that [facility] sends paper in the billing packet with their phone number if questions arise. Discussed Pharmacy section of LOYA form and self administered medication guideline. Pt verbalizes understanding and does not have further questions. Form signed, copy made and placed in chart, and original given to pt. Eun PLATT RN CM
[2022-09-04 12:15] LABS: Bedside Glucose 118 mg/dL (74-106)
--- NOTE | 2022-09-04 15:10 | STRESSREP_ITS ---
Stress Test Report Exercise myocardial perfusion stress test. 67-year-old lady with a history of chest pain Stress protocol: Resting EKG demonstrates normal sinus rhythm with a rate of 59 bpm resting blood pressure is 150/64 mmHg. The patient exercised according to the regular Bryn protocol for a total duration of 6 minutes and 37 seconds attaining a maximum heart rate of 130 bpm which was 84% of maximum predicted heart rate; the maximum workload was 7.9 metabolic equivalents. At rest there were no ST or T wave changes noted to suggest ischemia and at peak exercise upsloping ST changes only were noted which did not meet the criteria for ischemia. No clinical angina was noted the test was terminated due to the target heart rate being achieved/fatig ue. The peak blood pressure was 192/80 mmHg. Rate-pressure product was 23,200. Myocardial perfusion protocol. 11.8 mCi of technetium 99m sestamibi was injected at rest. The patient exercised according to regular Bryn protocol for total duration of 6 minutes and 37 seconds and at peak exercise 36 mCi of technetium 99m sestamibi was injected stress images were obtained stress and rest images were reconstructed in comparing the short axis vertical long and horizontal long axis. Gated images were also obtained. Perfusion SPECT analysis: Review of the stress images demonstrate normal uptake of tracer noted in all areas of the myocardium. The resting images similarly demonstrate normal uptake of tracer noted in all areas of the myocardium. No areas of reversibility are noted to suggest ischemia no previous infarct was noted. Gated SPECT analysis: The gated ejection fraction is 65%. Conclusion: Normal exercise myocardial perfusion stress test at a moderate workload Preserved ejection fraction.
--- NOTE | 2022-09-04 15:19 | DCINST_ITS ---
Discharge Instructions Diet Discharge Diet: Low fat / Low cholesterol and 2000 mg Sodium Diet Activity Discharge Activity: Return to Normal Activity Follow Up Care Test Results: Test results from this visit will be discussed in further detail at your follow- up appointment, if applicable. Discharge Plan Admission Admit Date/Time: 09/03/22 10:18 Primary Reason for Your Visit: Acute chest pain Attending Provider: Selam Jiang Primary Care Provider: Kaleb Ferraro Instructions Additional Instructions / Restrictions: Continue to follow a low-salt, low-fat diet. Continue to remain active. Your stress test was negative. This means your chest pain was not likely to be related to the heart. Discharge Orders/Prescriptions Prescriptions: Continued metformin 500 MG tablet 500 mg PO DAILY potassium chloride 10 mEq tablet extended release 20 meq PO DAILY Label Comments: TAKE 2 TABLETS BY MOUTH ONCE DAILY WITH BREAKFAST clopidogrel 75 mg tablet 75 mg PO DAILY Qty: 90 3RF aspirin 81 mg tablet,chewable 81 mg PO DAILY@0800 Qty: 30 11RF atorvastatin 80 mg tablet 80 mg PO QHS Qty: 30 11RF lisinopril 10 mg tablet 10 mg PO DAILY Qty: 30 11RF metoprolol tartrate 25 mg tablet 25 mg PO BID Qty: 60 0RF Referrals / Follow Up: Kaleb Ferraro [Primary Care Provider] - In 1 Week Disposition Disposition (needs filled in before D/C Order can be placed): Home, Self Care
--- NOTE | 2022-09-04 15:22 | DS.PCM_ITS ---
Providers Date of Admission: 09/03/22 Date of Discharge: 09/04/22 Primary Care Physician: Kaleb Ferraro Reason For Visit: CHEST PAIN Diagnosis Discharge Diagnosis (1) Chest pain: Status: Acute Code(s): R07.9 - Chest pain, unspecified Plan 1. Chest pain 2. Hypertension 3. Hyperlipidemia 3. Type II DM Medications at Discharge Home Medications metformin 500 mg tablet 500 mg PO DAILY diabetes 04/09/18 clopidogrel 75 mg tablet 75 mg PO DAILY #90 tabs 02/24/19 aspirin 81 mg chewable tablet 81 mg PO DAILY@0800 #30 tabs 08/07/19 atorvastatin 80 mg tablet 80 mg PO QHS #30 tabs 08/07/19 lisinopril 10 mg tablet 10 mg PO DAILY #30 tabs 08/07/19 metoprolol tartrate 25 mg tablet 25 mg PO BID #60 tabs 08/12/20 potassium chloride 10 mEq tablet,extended release 20 meq PO DAILY SUPPLEMENT 09/03/22 Hospital Course Operations None Procedures Stress test Summary of Care Provided Minutes Spent on Discharge: 35 Hospital Course: 67 y/o female past medical history CAD status post stents to RCA, current smoker, smokes about a pack of cigarettes a day, hypertension, type II DM who comes in with complaints of chest pain that happened at rest. Patient's vitals were stable. Admitting EKG showed no acute ST-T changes She was admitted to the telemetry floor and monitored with no acute events. Patient underwent stress cataloged unremarkable. She will need to follow-up wi th her primary care doctor within 1 week Physical Exam Narrative Physical exam: General: Alert, Oriented x3, Cooperative HEENT: Atraumatic Oral: Moist Mucosa Neck: Supple Lungs: Clear to auscultation Cardiovascular: HS I+II, regular, no murmurs Abdomen: Bowel Sounds Present, Soft, Non Tender Extremities: No edema Skin: No rashes, No breakdown Neurological: Grossly intact Psych/Mental Status: Appropriate Weight / BMI Weight Weight: 78.6 kg Body Mass Index (BMI) 28.4 ABG / Lab / Microbiology Data Result Diagrams: 09/04/22 03:46 09/04/22 03:46 Laboratory: Laboratory Results - last 24 hr 09/03/22 15:50: Troponin I High Sens 5 09/03/22 16:41: POC Glucose 106 09/03/22 20:47: POC Glucose 118 H 09/04/22 03:46: WBC 7.6, RBC 4.21, Hgb 13.1, Hct 40.7, MCV 96.7, MCH 31.1, MCHC 32.2, RDW Std Deviation 44.8 H, RDW Coeff of [place] 12.5, Plt Count 192, MPV 10.9, Immature Gran % (Auto) 0.400, Neut % (Auto) 52.9, Lymph % (Auto) 34.8, [place] % (Auto) 7.7, Eos % (Auto) 3.7, Baso % (Auto) 0.5, Absolute Neuts (auto) 4.0, Absolute Lymphs (auto) 2.65, Nucleated RBC % 0 09/04/22 03:46: Sodium 140, Potassium 4.3, Chloride 112 H, Carbon Dioxide 24.0, Anion Gap 4 L, BUN 14, Creatinine 0.72, Estim Creat Clear Calc 49.80, Est GFR (MDRD) Af Amer 105, Est GFR (MDRD) Non-Af 86, BUN/Creatinine Ratio 19.5, Glucose 121 H, Calcium 8.6, Total Bilirubin 0.50, AST 22, ALT 36, Alkaline Phosphatase 70, Total Protein 6.4, Albumin 3.1 L, Globulin 3.3, Albumin/Globulin Ratio 0.9 09/04/22 06:21: POC Glucose 136 H 09/04/22 11:52: POC Glucose 118 H D/C Instructions Discharge Diet: Low fat / Low cholesterol and 2000 mg Sodium Diet Meaningful Use Info Meaningful Use Diagnoses (Choose all that apply): None applicable Discharge Plan Admission Admit Date/Time: 09/03/22 10:18 Primary Reason for Your Visit: Acute chest pain Attending Provider: Selam Jiang Primary Care Provider: Kaleb Ferraro Instructions Additional Instructions / Restrictions: Continue to follow a low-salt, low-fat diet. Continue to remain active. Your stress test was negative. This means your chest pain was not likely to be related to the heart. Discharge Orders/Prescriptions Prescriptions: Continued metformin 500 MG tablet 500 mg PO DAILY potassium chloride 10 mEq tablet extended release 20 meq PO DAILY Label Comments: TAKE 2 TABLETS BY MOUTH ONCE DAILY WITH BREAKFAST clopidogrel 75 mg tablet 75 mg PO DAILY Qty: 90 3RF aspirin 81 mg tablet,chewable 81 mg PO DAILY@0800 Qty: 30 11RF atorvastatin 80 mg tablet 80 mg PO QHS Qty: 30 11RF lisinopril 10 mg tablet 10 mg PO DAILY Qty: 30 11RF metoprolol tartrate 25 mg tablet 25 mg PO BID Qty: 60 0RF Referrals / Follow Up: Kaleb Ferraro [Primary Care Provider] - In 1 Week Disposition Disposition (needs filled in before D/C Order can be placed): Home, Self Care Charges/Coding Visit Charges Inpatient E&M: 16499 Disch Hosp >30min
== END 2022-09-04 10:59 | disposition home or self-care (01) ==
LOC: ED 09:58 → PCU 10:35
PROVIDERS: Admitting Provider Internal Medicine; Emergency Provider Emergency Medicine; Visit Provider Internal Medicine
DX: R07.89 Other chest pain (principal); E11.51 Type 2 diabetes mellitus with diabetic peripheral angiopathy without gangrene; F17.210 Nicotine dependence, cigarettes, uncomplicated; I25.10 Atherosclerotic heart disease of native coronary artery without angina pectoris; E78.5 Hyperlipidemia, unspecified; Z79.84 Long term (current) use of oral hypoglycemic drugs; I10 Essential (primary) hypertension; Z79.02 Long term (current) use of antithrombotics/antiplatelets; Z79.82 Long term (current) use of aspirin; Z79.899 Other long term (current) drug therapy; I25.2 Old myocardial infarction
CPT/HCPCS: 36415; 71045; 78452; 80048; 80053; 82962; 84484; 85025; 85379; 93005; 93017; 96360; 96361; 99221; 99285; 99406; A9500; J7030; A4216; G0378

== ENCOUNTER 2024-03-31 10:47 | Emergency (ER) | payer MEDICARE, SELFPAY ==
[2024-03-31 10:47] VITALS: BP 174/58; PULSE 66; RESP 14; TEMP 36.6; O2SAT 98; BMI 27.3
--- NOTE | 2024-03-31 11:13 | EDS_ITS ---
HPI History of Present Illness Chief Complaint: Chest Pain Informant: patient Narrative Narrative: 68-year-old female history of coronary artery disease presenting to the emergency room for evaluation of chest pain. Patient states in 2019 she received a stent to her heart. She has had a prior stress test within the past 2 years that she states was negative. It is very difficult to get a clear history from her as the patient repeatedly tells me that these are the same symptoms that she had in 2019. Per dictations in 2019 she had a an excruciating dull ache in her chest. Patient received a stent to the proximal RCA. she tells me that yesterday she was working got shaky and lightheaded and had several reflux like pains going down the right side of her chest. She states they went away and she slept okay. Today she went to work and she had headednes s which she describes as a reflux-like symptoms down the center of her chest. Symptoms stayed for about an hour and then resolved. She is currently asymptomatic. 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 She has a history of diabetes peripheral artery disease hyperlipidemia and essential hypertension. [facility] Medical History Essential hypertension S/P coronary artery stent placement (~01/02/19) Atherosclerotic heart disease of [place] coronary artery without angina pectoris Peripheral artery disease NSTEMI (non-ST elevated myocardial infarction) Unstable angina Hypokalemia ACS (acute coronary syndrome) Hyperlipidemia SBO (small bowel obstruction) Diabetes mellitus type 2 in obese Home Medications ?Medication ?Instructions ?Recorded ?Last Taken ?Type metformin 500 mg tablet 500 mg PO DAILY diabetes 04/09/18 09/03/22 History clopidogrel 75 mg tablet 75 mg PO DAILY #90 tabs 02/24/19 09/03/22 Rx aspirin 81 mg chewable tablet 81 mg PO DAILY@0800 #30 tabs 08/07/19 09/02/22 Rx atorvastatin 80 mg tablet 80 mg PO QHS #30 tabs 08/07/19 09/02/22 Rx lisinopril 10 mg tablet 10 mg PO DAILY #30 tabs 08/07/19 09/03/22 Rx metoprolol tartrate 25 mg tablet 25 mg PO BID #60 tabs 08/12/20 09/03/22 Rx potassium chloride 10 mEq 20 meq PO DAILY SUPPLEMENT 09/03/22 09/03/22 History tablet,extended release Allergy/AdvReac Type Severity Reaction Status Date / Time propoxyphene (From Darvon) Allergy Unknown Verified 03/31/24 11:04 Family History Mother COPD (chronic obstructive pulmonary disease) CVA (cerebral vascular accident) Surgical History History of appendectomy History of abdominal surgery Presence of coronary angioplasty implant and graft (~01/02/19) History of colectomy Social History household members: none Smoking Status: Current every day smoker tobacco type: cigarettes alcohol intake: current details: Rare substance use type: does not use caffeine: Yes Type: coffee Number of servings: 3 ROS ROS ED ROS Narrative Lightheadedness shakiness Constitutional Constitutional ED: Denies chills, fever(s) or weight loss Eyes Eyes: Denies change in vision or diplopia ENT ENT ED: Denies ear pain, rhinorrhea or sore throat Cardiovascular Cardiovascular: Reports chest pain; Denies orthopnea, palpitations or racing heartbeat Respiratory/Chest Respiratory/Chest: Denies cough, dyspnea or orthopnea Gastrointestinal Gastrointestinal: Denies abdominal pain, diarrhea, nausea or vomiting Genitourinary Genitourinary ED: Denies dysuria, hematuria or urinary frequency Musculoskeletal Musculoskeletal: Denies arthralgias or myalgias Integumentary Denies abscess or rash Neurologic Neurologic: Denies headache(s) or weakness Psychiatric Psychiatric: Reports anxiety; Denies depression, suicidal ideation or suicidal thoughts Endocrine Endocrinology: Denies polydipsia, polyphagia or polyuria Allergic/Immunologic Allergic/Immunologic ED: Denies mouth swelling, tongue swelling or urticaria EXAM Physical Exam Const Vital Signs: 03/31/24 10:47 03/31/24 10:58 03/31/24 11:47 Temperature 98 F Temperature Source Temporal Pulse Rate 66 53 L Respiratory Rate 14 16 Respiratory Effort Short of Breath Blood Pressure 174/58 H 126/50 H Blood Pressure Mean 96 75 Pulse Ox 98 98 Oxygen Delivery Method Room Air Room Air 03/31/24 12:00 03/31/24 13:00 03/31/24 14:00 Temperature Temperature Source Pulse Rate 54 L 61 78 Respiratory Rate 18 12 16 Respiratory Effort Blood Pressure 131/54 H 133/54 H 143/65 H Blood Pressure Mean 79 80 91 Pulse Ox 95 95 98 Oxygen Delivery Method Room Air Room Air Room Air 03/31/24 14:38 Temperature 97.8 F Temperature Source Pulse Rate 78 Respiratory Rate 16 Respiratory Effort Blood Pressure 143/65 H Blood Pressure Mean 91 Pulse Ox 99 Oxygen Delivery Method Positive well nourished and well developed General Appearance ED: well developed and NAD HEENT Reports normocephalic, head/scalp atraumatic and moist mucous membranes Eyes PERRL and EOMs intact bilaterally Neck no lymphadenopathy, supple and no JVD Resp normal respiratory effort and clear to auscultation bilaterally Cardio regular rate, regular rhythm and no murmurs GI normal to inspection, nondistended, normoactive bowel sounds and non-tender Palpation: soft Back/Spine no CVA tenderness and normal ROM Extremity normal to inspection General Extremety ED: Negative for edema General Extremity: Negative for edema Neuro oriented x3 and CN's II-XII intact bilaterally Sensorium / Orientation: alert Motor Exam: strength 5/5 throughout Psych mental status grossly normal Mood & Affect: anxious and tearful; Negative for depressed Skin no rashes or lesions noted and no wounds MDM MDM MDM Narrative Medical decision making narrative: Differential diagnosis includes but not limited to acute coronary syndrome pneumonia pneumothorax cardiac dysrhythmia electrolyte abnormalities anemia aortic dissection/aneurysm. I do not think this is pulmonary embolism the patient's symptoms are intermittent. Certainly anxiety could be a component to this. EKG is a normal sinus rhythm. My independent interpretation of the chest x-ray is no acute process normal mediastinal silhouette. Hemoglobin 13.8 BMP was normal 2 sets of cardiac enzymes were negative. I believe the patient symptoms are a bit atypical. They have been intermittent and she has 2 sets of heart enzymes are negative and a normal EKG. It has been about a year and a half slightly longer since her last stress test. I recommend the patient follow-up with cardiology or with primary care if she cannot secure early follow-up. Patient to return if worsening or concerns History & Record Review Discussion w/independent historian: Patient and Significant other Lab Data Attestation: I reviewed the patient's lab results. Labs: Laboratory Results - last 24 hr 08/16/24 08/16/24 11:15 13:31 WBC 10.7 RBC 4.49 Hgb 13.8 Hct 41.8 MCV 93.1 MCH 30.7 MCHC 33.0 RDW Std Deviation 43.9 RDW Coeff of [place] 12.9 Plt Count 234 MPV 10.8 Immature Gran % (Auto) 0.300 Neut % (Auto) 52.7 Lymph % (Auto) 36.8 [place] % (Auto) 7.2 Eos % (Auto) 2.4 Baso % (Auto) 0.6 Absolute Neuts (auto) 5.6 Absolute Lymphs (auto) 3.93 Nucleated RBC % 0 Sodium 138 Potassium 4.3 Chloride 108 H Carbon Dioxide 23.0 Anion Gap 7 BUN 16 Creatinine 0.85 Estim Creat Clear Calc 64.97 Est GFR (MDRD) Af Amer 85 Est GFR (MDRD) Non-Af 70 BUN/Creatinine Ratio 18.7 Glucose 105 Calcium 9.1 Troponin I High Sens 6 7 Radiography Diagnostic Testing: Clinical Impression(s) from Imaging Studies Chest X-Ray 03/31/24 11:20 IMPRESSION: No acute pulmonary process Electronically Signed: Frankie Gauthier MD at 11:39 EDT Reading Location ID and State: [facility] / [place] , Service support , EKG Initial EKG: Attestation: I personally reviewed and interpreted this EKG as follows: Comments: Normal sinus rhythm ventricular rate of 62 bpm Discharge Plan Triage Chief Complaint: Chest Pain ED Provider: Dixon Flores Dx/Rx/DC Orders Clinical Impression: Chest pain, Essential hypertension, Diabetes mellitus type 2 in obese Instructions: ED Chest Pain, Uncertain Cause Prescriptions: No Action metformin 500 MG tablet 500 mg PO DAILY potassium chloride 10 mEq tablet extended release 20 meq PO DAILY Patient Comments: TAKE 2 TABLETS BY MOUTH ONCE DAILY WITH BREAKFAST clopidogrel 75 mg tablet 75 mg PO DAILY Qty: 90 3RF aspirin 81 mg tablet,chewable 81 mg PO DAILY@0800 Qty: 30 11RF atorvastatin 80 mg tablet 80 mg PO QHS Qty: 30 11RF lisinopril 10 mg tablet 10 mg PO DAILY Qty: 30 11RF metoprolol tartrate 25 mg tablet 25 mg PO BID Qty: 60 0RF Primary Care Provider: Kaleb Ferraro Referrals: Kaleb Ferraro [Primary Care Provider] - Activity Restrictions/Additional Instructions: I strongly recommend you follow-up with your collection teller and discuss your symptoms. If you are unable to see them within a short timeframe please call your primary care doctor. Please return to the emergency department if worsening or concerns. Print Language: Fijian Disposition Disposition: Home, Self Care Discharge Date/Time: 03/31/24 14:39
--- NOTE | 2024-03-31 11:13 | EKG12_ITS ---
Test Reason : CP Blood Pressure : / mmHG Vent. Rate : 062 BPM Atrial Rate : 062 BPM P-R Int : 140 ms QRS Dur : 074 ms QT Int : 390 ms P-R-T Axes : 074 071 069 degrees QTc Int : 395 ms Normal sinus rhythm Normal ECG Confirmed by Zbigniew Bowman ([id number]), editor sound DOROTHY CONNORS ([id number]) on 04/03/2024 9:18:35 AM Referred By: ALEKSEY/JER Confirmed By:Zbigniew Bowman
--- NOTE | 2024-03-31 11:20 | RAD_ITS ---
STUDY: X-RAY CHEST REASON FOR EXAM: Female, 68 years old. Atypical chest pain TECHNIQUE: Single AP portable view of the chest. COMPARISON: 09/03/2022 FINDINGS: EKG leads overlie the chest The lungs are clear and expanded. There is no demonstrated pleural abnormality. Normal size heart. Normal mediastinum and poli. Normal visualized pulmonary arteries. There is atherosclerotic calcification of the aortic arch with tortuosity. There are diffuse degenerative changes of the visualized thoracic spine. Normal visualized ribs, clavicles, and shoulders. There is no demonstrated abnormality of the visualized soft tissue structures of the upper abdomen. RAD/Chest 1 View (Portable) IMPRESSION: No acute pulmonary process Electronically Signed: Frankie Gauthier MD at 11:39 EDT ,
[2024-03-31 11:38] LABS: Absolute Lymphocyte Count 3.93 X10^3/uL (0.83-4.51); Absolute Neutrophil Count 5.6 X10^3/uL (2.0-7.7); Basophil# 0.06 X10^3/uL; Basophil% 0.6 % (0-1); Eosinophil# 0.26 X10^3/uL; Eosinophils% 2.4 % (0-5); Hematocrit 41.8 % (37-47); Hemoglobin 13.8 g/dL (12.0-15.0); Lymphocyte # 3.93 X10^3/ul (0.83-4.51); Lymphocyte % 36.8 % (19-41); Mean Corpuscular Hgb 30.7 pg (27.0-32.0); Mean Corpuscular Volume 93.1 fL (81-99); Mean Platelet Vol. 10.8 fl (6.2-12.0); Monocyte# 0.77 X10^3/uL; Monocyte% 7.2 % (0-10); NRBC Flagged by Analyzer 0 % (0-5); Neutrophil # 5.62 X10^3/uL (2.7-7.7); Neutrophil % 52.7 % (47-70); Platelet Count 234 K/mm3 (150-450); RBC Distribution Width CV 12.9 % (11.6-14.6); RBC Distribution Width SD 43.9 fl (35.1-43.9); Red Blood Count 4.49 M/mm3 (4.2-5.4); White Blood Count 10.7 K/mm3 (4.4-11.0)
[2024-03-31 11:41] LABS: Anion Gap 7 (5-15); BUN 16 mg/dL (7-18); BUN/Creat Ratio 18.7 RATIO (10-20); Calcium,Total 9.1 mg/dL (8.5-10.1); Chloride 108 mmol/L (98-107); Creatinine, Serum 0.85 mg/dL (0.55-1.02); EST Glomerular Filtration Rate 70 mL/min (>60); Est Glom Filt Rate - Afr Amer 85 mL/min (>60); Estimated Creatinine Clearance 64.97 ml/min; Glucose 105 mg/dL (74-106); Potassium 4.3 mmol/L (3.5-5.1); Sodium Level 138 mmol/L (136-145); Troponin-I HS (w/2H Reflex) 6 pg/mL (3.0-54.0)
[2024-03-31 11:47] VITALS: BP 126/50; PULSE 53; RESP 16; O2SAT 98
[2024-03-31 12:00] VITALS: BP 131/54; PULSE 54; RESP 18; O2SAT 95
[2024-03-31 13:00] VITALS: BP 133/54; PULSE 61; RESP 12; O2SAT 95
[2024-03-31 13:20] LABS: Reflex Troponin-HS? (from REC) Y
[2024-03-31 14:00] VITALS: BP 143/65; PULSE 78; RESP 16; O2SAT 98
[2024-03-31 14:07] LABS: Troponin-I HS 7 pg/mL (3.0-54.0)
[2024-03-31 14:38] VITALS: BP 143/65; PULSE 78; RESP 16; TEMP 36.6; O2SAT 99
== END 2024-03-31 14:39 | disposition home or self-care (01) ==
PROVIDERS: Emergency Provider Emergency Medicine; Visit Provider Emergency Medicine
DX: R07.9 Chest pain, unspecified (principal); E11.9 Type 2 diabetes mellitus without complications; I10 Essential (primary) hypertension; E78.5 Hyperlipidemia, unspecified; Z95.5 Presence of coronary angioplasty implant and graft; I25.10 Atherosclerotic heart disease of native coronary artery without angina pectoris; I25.2 Old myocardial infarction; Z79.84 Long term (current) use of oral hypoglycemic drugs; Z79.02 Long term (current) use of antithrombotics/antiplatelets; Z79.82 Long term (current) use of aspirin; Z79.899 Other long term (current) drug therapy; Z90.49 Acquired absence of other specified parts of digestive tract; F17.210 Nicotine dependence, cigarettes, uncomplicated; E66.9 Obesity, unspecified
CPT/HCPCS: 71045; 80048; 84484; 85025; 93005; 99284; A4216